=== PATIENT | female | born 1940 | race Caucasian/White ===

== ENCOUNTER 2016-09-16 06:51 | Day surgery (SDC) | payer MEDICARE, BC ==
[2016-09-16] MEDS ORDERED: Propofol 200 MG/20 ML SDV ONE ×2 (07:20→07:21)
[2016-09-16] MEDS ORDERED: fentaNYL 100 MCG/2 ML SDV ONE (07:20)
[2016-09-16] MEDS ORDERED: Lactated Ringers 1,000 ML IV SCH (07:30)
[2016-09-16 09:48] VITALS: BP 153/56
--- NOTE | 2016-09-17 07:34 | OR ---
DATE OF PROCEDURE: 09/16/2016 PREOPERATIVE DIAGNOSIS: History of adenomatous colon polyps. POSTOPERATIVE DIAGNOSES: Diverticulosis, small right colon polyp, and history of adenomatous colon polyps. PROCEDURE PERFORMED: Colonoscopy to the cecum with biopsy resection of small right colon polyp. ANESTHESIA: IV anesthesia with monitored anesthesia care. INDICATION: This 75-year-old white female is referred for a colonoscopy because of a history of adenomatous colon polyps. She says her last colonoscopic exam was done three years ago. I counseled her for the procedure including risks and alternatives, and she gave her informed consent to proceed. DESCRIPTION OF PROCEDURE: The patient was placed in the left lateral decubitus position. IV anesthesia was administered by the Anesthesia Service. Time-out was held. A rectal exam was unremarkable. The flexible video Olympus colonoscope was introduced through her anus, up her rectum, and out her colon all the way to the cecum. En route, we saw multiple left-sided diverticula. There was no bleeding or inflammation associated with them. Once the cecum was reached, the scope was slowly withdrawn examining the mucosa throughout. In the right colon, we saw a small polyp, which was removed with a few bites of the biopsy forceps. The scope was withdrawn further with no other additional new lesions noted. The scope was retroflexed in the rectum with the distal rectum appearing unremarkable. The scope was straightened and removed. She tolerated the procedure well. Fredis Iqbal MD /[id number]
== END 2016-09-16 10:10 | disposition home or self-care (01) ==
LOC: JP.SDS 06:51
PROVIDERS: ATTEND Surgery
DX: Z12.11 Encounter for screening for malignant neoplasm of colon (principal); D12.6 Benign neoplasm of colon, unspecified; I10 Essential (primary) hypertension; K57.30 Diverticulosis of large intestine without perforation or abscess without bleeding; Z88.8 Allergy status to other drugs, medicaments and biological substances
CPT/HCPCS: 45380; 88305; J2704; J3010; J7120

== ENCOUNTER 2017-01-28 22:30 | Emergency (ER) | payer MEDICARE, BC ==
[2017-01-28] MEDS ORDERED: Diphtheria,Pertussis(Acell),Tetanus Vaccine 0.5 ML SDV IM ONE (23:14)
[2017-01-28] MEDS ORDERED: Bacitracin Oint 1 GM U/D Packet TOP ONE (23:16)
--- NOTE | 2017-01-28 23:37 | EDM.PDOC ---
ED HPI GENERAL MEDICAL PROBLEM - General Chief Complaint: Laceration Stated Complaint: FELL HURT JAW Time Seen by Provider: 01/28/17 23:20 Source of Information: Reports: Patient History Limitations: Reports: No Limitations - History of Present Illness INITIAL COMMENTS - FREE TEXT/NARRATIVE: 76 yo female tripped tonight coming out of a concert. Incurred a lower lip laceration. No LOC. May have chipped some teeth. Jaw is a little sore. No nausea or AMIN. Onset: Today Onset Date: 01/28/17 Onset Time: 22:00 Duration: Minutes:, Constant Location: Reports: Face Quality: Reports: Dull Severity: Mild Improves with: Reports: None Worsens with: Reports: None Context: Reports: Other (fall in the dark) Associated Symptoms: Reports: No Other Symptoms. Denies: Headaches, Nausea/ Vomiting Treatments ORDER ENTRY SPECIALIST: Reports: Other (see below) (none) Left Face Pain Score (Numeric/FACES): 4 - Related Data Allergies Allergy/AdvReac Type Severity Reaction Status Date / Time lisinopril AdvReac Cough Verified 01/28/17 23:02 Home Meds: Home Meds Diclofenac Sodium [Voltaren 1% Gel] 1 applic TP QID PRN 08/09/13 [History] HCTZ/Triamterene [Maxzide 25-37.5 MG] 1 tab PO DAILY 08/09/13 [History] [place]-3 Fatty Acids [[place]-3] 1,000 mg PO DAILY 08/09/13 [History] *I-Throid 6.5 mg PO DAILY 01/13/15 [History] *Msm 1 cap PO DAILY 01/13/15 [History] *Neuro Methylation Cream 1 inch TOP DAILY 01/13/15 [History] *Neurolink 2 cap PO DAILY 01/13/15 [History] *Osteovegan 2 cap PO DAILY 01/13/15 [History] *Tergicel Colostrom 1 cap PO DAILY 01/13/15 [History] *Thyrosodine 5 drop PO DAILY 01/13/15 [History] L.acidoph,Paracasei, B.lactis [Probiotic] 1 cap PO DAILY 01/13/15 [History] Losartan [Cozaar] 25 mg PO DAILY 01/13/15 [History] Magnesium Citrate 1 cap PO DAILY 01/13/15 [History] Medium Chain Triglycerides [MCT Oil] 1 tsp PO DAILY 01/13/15 [History] Past Medical History HEENT History: Reports: Allergic Rhinitis Cardiovascular History: Reports: Hypertension 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: Neurological History: Reports: Neuropathy, Peripheral - Past Surgical History HEENT Surgical History: Reports: Cataract Surgery Cardiovascular Surgical History: Reports: None Social & Family History - Family History Family Medical History: Noncontributory - Tobacco Use Smoking Status *Q: Unknown Ever Smoked Second Hand Smoke Exposure: No - Caffeine Use Caffeine Use: Reports: Coffee - Alcohol Use Days Per Week of Alcohol Use: 0 - Recreational Drug Use Recreational Drug Use: No ED ROS GENERAL - Review of Systems Review Of Systems: See Below Constitutional: Reports: No Symptoms HEENT: Reports: Other (Feels like she may have incurred some small chips to some of her teeth. ) Musculoskeletal: Reports: Joint Pain (mild jaw pain ) Skin: Reports: Wound (Lower lip laceration.) Neurological: Reports: No Symptoms Psychiatric: Reports: No Symptoms ED EXAM, SKIN/RASH Exam: See Below Exam Limited By: No Limitations General Appearance: Alert, WD/WN, No Apparent Distress Eye Exam: Bilateral Eye: Normal Inspection, PERRL Ears: Normal External Exam, Normal Canal, Hearing Grossly Normal Nose: Normal Inspection, Normal Mucosa, No Blood Throat/Mouth: Normal Inspection, Other (No significant dental injury noted. There is a 2 cm horiz. lower lip laceration just below the arash border. ) Head: Atraumatic, Normocephalic Neck: Normal Inspection, Supple, Non-Tender Neurological: Alert, Oriented, CN II-XII Intact, Normal Cognition, No Motor/ Sensory Deficits Psychiatric: Normal Affect, Normal Mood Skin: Other (See details above regarding lower lip laceration. ) Location, Skin: Face (lower lip) Characteristics: Linear Associated features: Tenderness Lymphatic: No Adenopathy ED SKIN PROCEDURES - Laceration/Wound Repair Lower Mouth Lac/Wound length In cm: 2 Appearance: Subcutaneous, Clean Distal NVT: Neuro & Vascular Intact, No Tendon Injury Anesthetic Type: Local Local Anesthesia - Lidocaine (Xylocaine): 1% with EPI Local Anesthetic Volume: 3cc Skin Prep: Saline Exploration/Debridement/Repair: Wound Explored Closed with: Sutures Suture Size: other (6-0) Suture Type: Nylon, Simple Drain Placement: No Tetanus Status Addressed: Yes Complications: No Course - Vital Signs Last Recorded V/S: Last Vital Signs Temp 36.4 C 01/28/17 22:58 Pulse 108 H 01/28/17 22:58 Resp 16 01/28/17 22:58 BP 217/125 H 01/28/17 22:58 Pulse Ox 96 01/28/17 22:58 - Orders/Labs/Meds Orders: Active Orders 24 hr Category Date Time Status Vaccines to be Administered [RC] PER UNIT ROUTINE Care 01/28/17 23:15 Active Meds: Medications Discontinued Medications Generic Name Dose Route Start Last Admin Trade Name Sarahy PRN Reason Stop Dose Admin Bacitracin 1 dose 01/28/17 23:16 Bacitracin Oint 1 Gm TOP 01/28/17 23:17 ONETIME ONE Diphtheria/Tetanus/Acell Pertussis 0.5 ml 01/28/17 23:14 Adacel IM 01/28/17 23:15 .ONCE ONE Departure - Departure Time of Disposition: 23:45 Disposition: Home, Self-Care 01 Condition: Good Clinical Impression: Laceration of lower lip Qualifiers: Encounter type: initial encounter Qualified Code(s): S01.511A - Laceration without foreign body of lip, initial encounter - Discharge Information Referrals: Lanre Carroll MD [Primary Care Provider] - Forms: ED Department Discharge - My Orders Last 24 Hours: My Active Orders 01/28/17 23:15 Vaccines to be Administered [RC] PER UNIT ROUTINE - Assessment/Plan Last 24 Hours: My Active Orders 01/28/17 23:15 Vaccines to be Administered [RC] PER UNIT ROUTINE
[2017-01-28 23:52] VITALS: BP 192/89
== END 2017-01-28 23:53 | disposition home or self-care (01) ==
LOC: JP.ED 22:30
DX: S01.511A Laceration without foreign body of lip, initial encounter (principal); I10 Essential (primary) hypertension; Z23 Encounter for immunization; Z98.49 Cataract extraction status, unspecified eye; Z79.899 Other long term (current) drug therapy; Z88.8 Allergy status to other drugs, medicaments and biological substances; W01.0XXA Fall on same level from slipping, tripping and stumbling without subsequent striking against object, initial encounter
CPT/HCPCS: 12011; 90471; 90715; 99283-25

== ENCOUNTER 2021-04-10 15:04 | Inpatient (IN) | payer MEDICARE ==
[2021-04-10] MEDS ORDERED: fentaNYL 100 MCG/2 ML SDV IM ONE (16:05)
--- NOTE | 2021-04-10 16:07 | EDM.PDOC ---
ED HPI GENERAL MEDICAL PROBLEM - General Chief Complaint: Lower Extremity Injury/Pain Stated Complaint: FELL PAIN BELOW LT HIP Time Seen by Provider: 04/10/21 16:03 Source of Information: Reports: Patient, Family, RN Notes Reviewed History Limitations: Reports: No Limitations - History of Present Illness INITIAL COMMENTS - FREE TEXT/NARRATIVE: 80-year-old female presents emergency department today with complaint of left hip pain, she injured herself earlier today when she slipped outside of her apartment landed predominantly on the left hip. Now she has difficulty bearing weight any movement of that hip causes severe pain Left Hip Pain Score (Numeric/FACES): 7 - Related Data Allergies Allergy/AdvReac Type Severity Reaction Status Date / Time lisinopril AdvReac Cough Verified 04/10/21 15:43 Home Meds: Home Meds [place]-3 Fatty Acids [[place]-3] 1,000 mg PO DAILY 08/09/13 [History] *I-Throid 6.5 mg PO DAILY 01/13/15 [History] *Neuro Methylation Cream 1 inch TOP DAILY 01/13/15 [History] L.acidoph,Paracasei, B.lactis [Probiotic] 1 cap PO DAILY 01/13/15 [History] Magnesium Citrate 1 cap PO DAILY 01/13/15 [History] Medium Chain Triglycerides [MCT Oil] 1 tsp PO DAILY 01/13/15 [History] Ibuprofen 200 mg PO Q6H PRN 04/10/21 [History] Ubidecarenone [Coq10] 100 mg PO 1800 04/10/21 [History] Past Medical History HEENT History: Reports: Allergic Rhinitis Cardiovascular History: Reports: Hypertension Gastrointestinal History: Reports: 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: Musculoskeletal History: Reports: Osteoarthritis Neurological History: Reports: Neuropathy, Peripheral - Past Surgical History Head Surgeries/Procedures: Reports: None HEENT Surgical History: Reports: Cataract Surgery Cardiovascular Surgical History: Reports: None GI Surgical History: Reports: Cholecystectomy, Colonoscopy Neurological Surgical History: Reports: None Musculoskeletal Surgical History: Reports: None Social & Family History - Family History Family Medical History: No Pertinent Family History - Tobacco Use Tobacco Use Status *Q: Never Tobacco User - Caffeine Use Caffeine Use: Reports: Coffee, Soda, Tea - Recreational Drug Use Recreational Drug Use: No Review of Systems - Review of Systems Review Of Systems: See Below Constitutional: Reports: No Symptoms Musculoskeletal: Reports: Joint Pain (Hip pain) ED EXAM, GENERAL - Physical Exam Exam: See Below Free Text/Narrative:: Examination left hip it is externally rotated and shortened will not tolerate any type of exam there is tenderness to palpation over the greater trochanter Exam Limited By: No Limitations General Appearance: Alert, WD/WN, No Apparent Distress Respiratory/Chest: No Respiratory Distress Course - Vital Signs Last Recorded V/S: Last Vital Signs Temp 97.0 F 04/10/21 15:38 Pulse 97 04/10/21 18:21 Resp 18 04/10/21 15:38 BP 198/95 H 04/10/21 18:21 Pulse Ox 94 L 04/10/21 18:21 - Orders/Labs/Meds Orders: Active Orders 24 hr Category Date Time Status Insert Urinary Catheter [OM.PC] Q24H Care 04/10/21 17:45 Ordered Urinary Catheter Assessment [RC] ASDIRECTED Care 04/10/21 17:39 Active COVID-19/FLU A+B/RSV [MOLEC] Routine Lab 04/10/21 17:58 Received Potassium Chloride [KCL in Water 20 MEQ/100 ML] 20 meq Med 04/10/21 18:20 Active Premix Bag 1 bag IV ONETIME ceFAZolin [Ancef] 1 gm Med 04/11/21 07:30 Active Premix Bag 1 bag IV ONETIME Medication Orders Cefazolin Sodium/Dextrose 1 gm (/ Premix) 50 mls @ 100 mls/hr IV ONETIME ONE Stop: 04/11/21 07:59 Potassium Chloride 20 meq/ (Premix) 100 mls @ 50 mls/hr IV ONETIME ONE Stop: 04/10/21 20:19 Labs: Laboratory Tests 04/10/21 04/10/21 Range/Units 17:55 17:55 WBC 24.1 H (4.5-11.0) K/uL RBC 4.91 (3.30-5.50) M/uL Hgb 15.6 H D (12.0-15.0) g/dL Hct 44.3 (36.0-48.0) % MCV 90 (80-98) fL MCH 32 H (27-31) pg MCHC 35 (32-36) % Plt Count 298 (150-400) K/uL Sodium 131 L (140-148) mmol/L Potassium 2.9 L* (3.6-5.2) mmol/L Chloride 94 L (100-108) mmol/L Carbon Dioxide 27 (21-32) mmol/L Anion Gap 12.9 (5.0-14.0) mmol/L BUN 19 H (7-18) mg/dL Creatinine 0.9 (0.6-1.0) mg/dL Est Cr Clr Drug Dosing 50.29 mL/min Estimated GFR (MDRD) > 60 (>60) Glucose 107 H (74-106) mg/dL Calcium 9.5 (8.5-10.1) mg/dL Total Bilirubin 0.8 (0.2-1.0) mg/dL AST 27 (15-37) U/L ALT 27 (12-78) U/L Alkaline Phosphatase 71 (46-116) U/L Total Protein 8.2 (6.4-8.2) g/dL Albumin 3.7 (3.4-5.0) g/dL Globulin 4.5 H (2.3-3.5) g/dL Albumin/Globulin Ratio 0.8 L (1.2-2.2) Meds: Medications Generic Name Dose Route Start Last Admin Trade Name Freq PRN Reason Stop Dose Admin Cefazolin Sodium/Dextrose 1 gm 50 mls @ 100 mls/hr 04/11/21 07:30 / Premix IV 04/11/21 07:59 ONETIME ONE Potassium Chloride 20 meq/ 100 mls @ 50 mls/hr 04/10/21 18:20 Premix IV 04/10/21 20:19 ONETIME ONE Discontinued Medications Generic Name Dose Route Start Last Admin Trade Name Freq PRN Reason Stop Dose Admin Fentanyl 50 mcg 04/10/21 16:05 04/10/21 16:12 Fentanyl 100 Mcg/2 Ml Sdv IM 04/10/21 16:06 50 mcg ONETIME ONE Administration Fentanyl 50 mcg 04/10/21 17:38 04/10/21 17:54 Fentanyl 100 Mcg/2 Ml Sdv IVPUSH 04/10/21 17:39 50 mcg ONETIME ONE Administration Potassium Chloride 40 meq 04/10/21 18:20 04/10/21 18:30 Potassium Chloride 20 Meq Tab.Er PO 04/10/21 18:21 40 meq ONETIME ONE Administration Departure - Departure Time of Disposition: 18:34 Disposition: Admitted As Inpatient 66 Condition: Fair Clinical Impression: Intertrochanteric fracture of left hip Qualifiers: Encounter type: initial encounter Fracture type: closed Fracture alignment: displaced Qualified Code(s): S72.142A - Displaced intertrochanteric fracture of left femur, initial encounter for closed fracture - Discharge Information Referrals: Lanre Carroll MD [Primary Care Provider] - Forms: ED Department Discharge Sepsis Event Note (ED) - Evaluation Sepsis Screening Result: No Definite Risk - Focused Exam Vital Signs: Vital Signs Temp Pulse Resp BP Pulse Ox 04/10/21 18:21 97 198/95 H 94 L 04/10/21 17:43 85 199/94 H 99 04/10/21 16:34 89 199/88 H 94 L 04/10/21 15:38 97.0 F 88 18 199/90 H 96 - My Orders Last 24 Hours: My Active Orders 04/10/21 17:39 Urinary Catheter Assessment [RC] ASDIRECTED 04/10/21 17:45 Insert Urinary Catheter [OM.PC] Q24H 04/10/21 17:58 COVID-19/FLU A+B/RSV [MOLEC] Routine 04/10/21 18:20 Potassium Chloride [KCL in Water 20 MEQ/100 ML] 20 meq Premix Bag 1 bag IV ONETIME - Assessment/Plan Last 24 Hours: My Active Orders 04/10/21 17:39 Urinary Catheter Assessment [RC] ASDIRECTED 04/10/21 17:45 Insert Urinary Catheter [OM.PC] Q24H 04/10/21 17:58 COVID-19/FLU A+B/RSV [MOLEC] Routine 04/10/21 18:20 Potassium Chloride [KCL in Water 20 MEQ/100 ML] 20 meq Premix Bag 1 bag IV ONETIME Plan: Assessment Acuity = acute Site and laterality = left hip intertrochanteric fracture Etiology = secondary to fall Manifestations = none Location of injury = Home Lab values = x-ray describes fracture above Plan Call discussed case with Dr. Barone orthopedic surgeon at 1700 kindly agreed to evaluate the patient in hospital plan for surgical intervention This note was dictated using [employer] voice recognition software please call with any questions on syntax or grammar.
--- NOTE | 2021-04-10 17:00 | CRLCR ---
For Patients: As a result of the Century Cures Act, medical imaging exams and procedure reports are released immediately into your electronic medical record. You may view this report before your referring provider. If you have questions, please contact your health care provider. Indication: Fall, pain Technique: Left hip 2 views Comparison: None Findings: Bones: Mildly displaced and probably comminuted fracture of the left femoral intertrochanteric region. Femoral head remains seated in the acetabulum. Joint spaces: Joint spaces are preserved. No degenerative changes. Soft tissues: Unremarkable. Impression: Left intertrochanteric fracture. Dictated by Norbert Garibay MD @ 04/10/2021 4:59:36 PM (Electronically Signed)
[2021-04-10] MEDS ORDERED: fentaNYL 100 MCG/2 ML SDV IVPUSH ONE (17:38)
[2021-04-10] MEDS ORDERED: Potassium Chloride 20 MEQ Tab.ER PO ONE (18:20)
[2021-04-10] MEDS ORDERED: Potassium Chloride 20 MEQ in Premix Bag 1 BAG IV ONE (18:20)
[2021-04-10] MEDS ORDERED: HYDROmorphone 1 MG/ML Syringe IVPUSH ONE (18:35)
[2021-04-10 18:40] LABS: CORONAVIRUS COVID-19 NAA NEGATIVE (NEGATIVE)
[2021-04-10] MEDS ORDERED: Ondansetron 4 MG/2 ML SDV ONE (19:08)
[2021-04-10] MEDS ORDERED: Ondansetron 4 MG/2 ML SDV IVPUSH PRN (19:08)
--- NOTE | 2021-04-10 19:15 | PCM.HP.2 ---
H&P History of Present Illness - General Date of Service: 04/10/21 Admit Problem/Dx: Admission Diagnosis/Problem Admission Diagnosis/Problem Hip fracture requiring operative repair Source of Information: Patient, Family, Provider, RN History Limitations: Reports: No Limitations - History of Present Illness Initial Comments - Free Text/Narative: chief complaint: fracture left hip This is a 80 year old female presents to the ER via POV after a fall at [facility]. She went home and then fell again at home. Drove herself to the hospital. She was evaluated and found to have a fracture left hip and low potassium. Orthopedic were consulted- Dr. Barone will do surgery tomorrow. Onset of Symptoms: Reports: Today Symptom Onset Date: 04/10/21 Symptom Onset Time: 13:30 Duration of Symptoms: Reports: Constant Location: Reports: Lower Extremity, Left Quality: Reports: Ache, Sharp Severity: Severe Improves with: Reports: Immobilization Worsens with: Reports: Movement Context: Reports: Other (fall at [facility]) Associated Symptoms: Reports: No Other Symptoms Left Hip Pain Score (Numeric/FACES): 7 - Related Data Allergies/Adverse Reactions: Allergies Allergy/AdvReac Type Severity Reaction Status Date / Time lisinopril AdvReac Cough Verified 04/10/21 15:43 Home Medications: Home Meds Weatherford-3 Fatty Acids [Weatherford-3] 1,000 mg PO DAILY 08/09/13 [History] *I-Throid 6.5 mg PO DAILY 01/13/15 [History] *Neuro Methylation Cream 1 inch TOP DAILY 01/13/15 [History] L.acidoph,Paracasei, B.lactis [Probiotic] 1 cap PO DAILY 01/13/15 [History] Magnesium Citrate 1 cap PO DAILY 01/13/15 [History] Medium Chain Triglycerides [MCT Oil] 1 tsp PO DAILY 01/13/15 [History] Ibuprofen 200 mg PO Q6H PRN 04/10/21 [History] Ubidecarenone [Coq10] 100 mg PO 1800 04/10/21 [History] Past Medical History HEENT History: Reports: Allergic Rhinitis Cardiovascular History: Reports: Hypertension Gastrointestinal History: Reports: Colon [employer] MAIL History: Reports: Musculoskeletal History: Reports: Osteoarthritis Neurological History: Reports: Neuropathy, Peripheral - Past Surgical History Head Surgeries/Procedures: Reports: None HEENT Surgical History: Reports: Cataract Surgery Cardiovascular Surgical History: Reports: None GI Surgical History: Reports: Cholecystectomy, Colonoscopy Neurological Surgical History: Reports: None Musculoskeletal Surgical History: Reports: None Social & Family History - Family History Family Medical History: No Pertinent Family History - Tobacco Use Tobacco Use Status *Q: Never Tobacco User - Caffeine Use Caffeine Use: Reports: Coffee, Soda, Tea - Recreational Drug Use Recreational Drug Use: No - Living Situation & Occupation Living situation: Reports: with Spouse, 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 Has a Son who lives here and Daughter lives in [place].) Occupation: Retired H&P Review of Systems - Review of Systems: Review Of Systems: See Below General: Reports: Other (left hip and left upper leg pain) HEENT: Reports: Glasses Pulmonary: Reports: No Symptoms Cardiovascular: Reports: No Symptoms Gastrointestinal: Reports: No Symptoms Genitourinary: Reports: No Symptoms Musculoskeletal: Reports: Leg Pain (left), Joint Pain (left hip fractured) Skin: Reports: No Symptoms Psychiatric: Reports: No Symptoms Neurological: Reports: No Symptoms Hematologic/Lymphatic: Reports: No Symptoms Immunologic: Reports: No Symptoms Exam - Exam Exam: See Below - Vital Signs Vital Signs: Last Vital Signs Temp 97.0 F 04/10/21 15:38 Pulse 97 04/10/21 18:21 Resp 18 04/10/21 15:38 BP 198/95 H 04/10/21 18:21 Pulse Ox 94 L 04/10/21 18:21 Weight: 175 lb - Exam Quality Assessment: Urinary Catheter General: Alert, Oriented, Cooperative, Moderate Distress HEENT: PERRLA, Conjunctiva Clear, Hearing Intact Neck: Supple, Trachea Midline Lungs: Clear to Auscultation, Normal Respiratory Effort Cardiovascular: Regular Rate, Regular Rhythm, Normal S1, Normal S2 GI/Abdominal Exam: Normal Bowel Sounds, Soft, Non-Tender (Female) Exam: Deferred Rectal (Female) Exam: Deferred Extremities: Normal Inspection, No Pedal Edema, Leg Pain (left), Limited Range of Motion (unable left leg due to pain) Skin: Warm, Dry, Intact Neurological: Normal Speech, Normal Tone, Abnormal Gait (due to left hip fracture) Neuro Extensive - Mental Status: Alert, Oriented x3, Normal Mood/Affect, Normal Cognition, Memory Intact Neuro Extensive - Motor, Sensory, Reflexes: Other (left hip fracture) Psychiatric: Alert, Normal Affect, Anxious - Patient Data Lab Results Last 24 hrs: Laboratory Results - last 24 hr 04/10/21 04/10/21 04/10/21 Range/Units 17:55 17:55 17:58 WBC 24.1 H (4.5-11.0) K/uL RBC 4.91 (3.30-5.50) M/uL Hgb 15.6 H D (12.0-15.0) g/dL Hct 44.3 (36.0-48.0) % MCV 90 (80-98) fL MCH 32 H (27-31) pg MCHC 35 (32-36) % Plt Count 298 (150-400) K/uL Sodium 131 L (140-148) mmol/L Potassium 2.9 L* (3.6-5.2) mmol/L Chloride 94 L (100-108) mmol/L Carbon Dioxide 27 (21-32) mmol/L Anion Gap 12.9 (5.0-14.0) mmol/L BUN 19 H (7-18) mg/dL Creatinine 0.9 (0.6-1.0) mg/dL Est Cr Clr Drug Dosing 50.29 mL/min Estimated GFR (MDRD) > 60 (>60) Glucose 107 H (74-106) mg/dL Calcium 9.5 (8.5-10.1) mg/dL Total Bilirubin 0.8 (0.2-1.0) mg/dL AST 27 (15-37) U/L ALT 27 (12-78) U/L Alkaline Phosphatase 71 (46-116) U/L Total Protein 8.2 (6.4-8.2) g/dL Albumin 3.7 (3.4-5.0) g/dL Globulin 4.5 H (2.3-3.5) g/dL Albumin/Globulin Ratio 0.8 L (1.2-2.2) Influenza Type A RNA Negative (NEGATIVE) RSV RNA (INAAT) Negative (NEGATIVE) Influenza Type B RNA Negative (NEGATIVE) SARS-CoV-2 RNA (LINNEA) Negative (NEGATIVE) Result Diagrams: 04/10/21 17:55 04/10/21 17:55 Sepsis Event Note - Evaluation Sepsis Screening Result: No Definite Risk - Focused Exam Vital Signs: Vital Signs Temp Pulse Resp BP Pulse Ox 04/10/21 18:21 97 198/95 H 94 L 04/10/21 17:43 85 199/94 H 99 04/10/21 16:34 89 199/88 H 94 L 04/10/21 15:38 97.0 F 88 18 199/90 H 96 - Problem List (1) Intertrochanteric fracture of left hip SNOMED Code(s): 916825798, [id number] ICD Code: S72.142A - DISPLACED INTERTROCHANTERIC FRACTURE OF LEFT FEMUR, INIT Status: Acute Priority: High Current Visit: Yes Qualifiers: Encounter type: initial encounter Fracture type: closed Fracture alignment: displaced Qualified Code(s): S72.142A - Displaced intertrochanteric fracture of left femur, initial encounter for closed fracture (2) Hypokalemia SNOMED Code(s): 28822626 ICD Code: E87.6 - HYPOKALEMIA Status: Acute Priority: High Current Visit: Yes Problem List Initiated/Reviewed/Updated: Yes Orders Last 24hrs: Active Orders 24 hr Category Date Time Status Patient Status Manage Transfer [TRANSFER] Routine ADT 04/10/21 18:39 Active Insert Urinary Catheter [OM.PC] Q24H Care 04/10/21 17:45 Ordered Urinary Catheter Assessment [RC] ASDIRECTED Care 04/10/21 17:39 Active UA W/MICROSCOPIC [URIN] Urgent Lab 04/10/21 18:35 Ordered Ondansetron [Zofran] Med 04/10/21 19:08 Active 4 mg IVPUSH Q4H PRN Potassium Chloride [KCL in Water 20 MEQ/100 ML] 20 meq Med 04/10/21 18:20 Active Premix Bag 1 bag IV ONETIME ceFAZolin [Ancef] 1 gm Med 04/11/21 07:30 Active Premix Bag 1 bag IV ONETIME Resuscitation Status Routine Resus Stat 04/10/21 18:40 Ordered Medication Orders Cefazolin Sodium/Dextrose 1 gm (/ Premix) 50 mls @ 100 mls/hr IV ONETIME ONE Stop: 04/11/21 07:59 Potassium Chloride 20 meq/ (Premix) 100 mls @ 50 mls/hr IV ONETIME ONE Stop: 04/10/21 20:19 Last Admin: 04/10/21 18:54 Dose: 50 mls/hr Documented by: [id number] Ondansetron HCl (Ondansetron 4 Mg/2 Ml Sdv) 4 mg IVPUSH Q4H PRN PRN Reason: Nausea/Vomiting Assessment/Plan Comment:: Assessment/Plan Comment:: ASSESSMENT AND PLAN - Intertrochanteric fracture left hip, Hypokalemia This is a 80 year old female presents to the ER via POV after a fall at [facility]. She went home and then fell again at home. Drove herself to the hospital. She was evaluated and found to have a fracture left hip and low potassium. Orthopedic were consulted- Dr. Barone will do surgery tomorrow. ER labs : CBC wbc 24.1, hgb 15.9, plts 298 Na+ 131, K+2.9, BUN 19, Cr. 0.9, GFR >60 ER xray: left intertrochanteric fracture of left hip Consult with Dr. Barone, Orthopedic Surgeon - will do surgery tomorrow Intertrochanteric fracture of left hip -IV fluids Normal Saline at 100 ml/hr overnight for rehydration -NPO after midnight -Position of comfort -Morrissey catheter for strict intake and output monitoring. -Dilaudid KEYLINER for pain control -consult to PT and OT -am labs CBC, BMP -Son Steven would like to be called with Surgery time or any changes. He will be staying with his Dad idania at [facility]. [phone] Hypokalemia- IV Potassium 20 meq. and PO Potassium 40 meq. given in ER -am BMP -telemetry Maintenance issues - - DVT prophylaxis -SCD - GI prophylaxis -Protonix 40 mg daily - Nutrition -NPO after midnight- regular diet until midnight - Morrissey catheter -placed for strict intake and output monitoring CODE STATUS -FULL for surgery then would like to be DNR/DNI Admission justification -this patient will be admitted for inpatient services and is medically appropriate meeting medical necessity for inpatient admission as outlined in my documentation. I reasonably expect the patient will require inpatient services that span a period time over 2 midnights. I reasonably expect this patient to be discharged or transferred within 96 hours [facility]. Disposition -I would anticipate discharge to [facility] with - they both live there. Primary care physician - Dr. Carroll Hospitalist- Marcus Trujillo M.D. - Mortality Measure Prognosis:: Good
[2021-04-10] MEDS ORDERED: Albuterol 0.083% 2.5 MG/3 ML Neb Soln NEB PRN (20:32)
[2021-04-10] MEDS ORDERED: Naloxone 0.4 MG/ML SDV IVPUSH PRN (20:32)
[2021-04-10] MEDS ORDERED: Bisacodyl 5 MG Tab PO PRN (20:32)
[2021-04-10] MEDS ORDERED: HYDROmorphone/Normal Saline 15 MG/30 ML PCA IV PRN (20:32)
[2021-04-10] MEDS ORDERED: Docusate Sodium 100 MG Cap PO PRN (20:32)
[2021-04-10] MEDS ORDERED: Ondansetron 4 MG/2 ML SDV IV PRN (20:32)
[2021-04-10] MEDS ORDERED: LORazepam 2 MG/ML SDV IV PRN (20:32)
[2021-04-10] MEDS ORDERED: oxyCODONE 5 MG Tab PO PRN (20:32)
[2021-04-10] MEDS ORDERED: Ondansetron 4 MG Tab.DIS PO PRN (20:32)
[2021-04-10] MEDS ORDERED: Acetaminophen 325 MG Tab PO PRN (20:32)
[2021-04-10] MEDS: Sodium Chloride 0.9% 1,000 ML IV SCH (21:11)
[2021-04-11] MEDS: Sodium Chloride 0.9% 1,000 ML IV SCH ×3 (07:00→19:12)
[2021-04-11] MEDS ORDERED: ceFAZolin 1 GM in Premix Bag 1 BAG IV ONE (07:30)
[2021-04-11] MEDS ORDERED: Bupivacaine 0.5%/EPINEPHrine 1:200,000 50 ML MDV ONE (07:33)
[2021-04-11] MEDS ORDERED: fentaNYL 250 MCG/5 ML SDV ONE (07:35)
[2021-04-11] MEDS ORDERED: Propofol 200 MG/20 ML SDV ONE (07:36)
[2021-04-11] MEDS ORDERED: Rocuronium 50 MG/5 ML Vial ONE (07:36)
[2021-04-11] MEDS ORDERED: Neostigmine Methylsulfate 1 MG/ML 5 ML Syringe ONE (07:36)
[2021-04-11] MEDS ORDERED: Glycopyrrolate 0.2 MG/ML 5 ML MDV ONE (07:36)
[2021-04-11] MEDS ORDERED: Succinylcholine 200 MG/10 ML MDV ONE (07:36)
[2021-04-11] MEDS ORDERED: Ondansetron 4 MG/2 ML SDV ONE (07:36)
[2021-04-11] MEDS ORDERED: Dexamethasone 4 MG/ML SDV ONE (07:36)
[2021-04-11] MEDS ORDERED: Bupivacaine 0.5%/EPINEPHrine 1:200,000 30 ML SDV INJECT ONE ×2 (09:01→09:14)
[2021-04-11] MEDS ORDERED: Sugammadex Sodium 200 MG/2 ML VIAL ONE (09:17)
[2021-04-11] MEDS ORDERED: Ondansetron 4 MG Tab.DIS PO PRN (09:24)
[2021-04-11] MEDS ORDERED: Morphine 2 MG/ML SYRINGE IV PRN (09:24)
[2021-04-11] MEDS: Acetaminophen 325 MG Tab PO SCH ×3 (11:50→23:39)
--- NOTE | 2021-04-11 11:55 | PCM.PN ---
- General Info Date of Service: 04/11/21 Subjective Update: No acute events overnight. Patient had an uneventful surgical repair of her left hip fracture this morning with an IM nailing. She is complaining of moderate lef t hip pain postoperatively. Vital signs are otherwise stable with the exception of her blood pressure which was quite elevated this morning though improving after surgery. She reports her blood pressure is normally well controlled and she has not been on medications recently but did require them in the distant past. Urine sample moderately suggestive of infection. Patient does not have any symptoms of urinary tract infection. Functional Status: Reports: Pain Controlled - Review of Systems General: Denies: Fever Musculoskeletal: Reports: Leg Pain - Patient Data Vitals - Most Recent: Last Vital Signs Temp 36.6 C 04/11/21 10:34 Pulse 88 04/11/21 10:34 Resp 18 04/11/21 10:34 BP 173/73 H 04/11/21 10:34 Pulse Ox 92 L 04/11/21 10:34 Weight - Most Recent: 85.1 kg I&O - Last 24 Hours: Intake & Output 04/10/21 04/11/21 04/11/21 22:59 06:59 14:59 Intake Total 100 Output Total 1250 Balance -1250 100 Lab Results Last 24 Hours: Laboratory Results - last 24 hr 04/10/21 04/10/21 04/10/21 Range/Units 17:55 17:55 17:58 WBC 24.1 H (4.5-11.0) K/uL RBC 4.91 (3.30-5.50) M/uL Hgb 15.6 H D (12.0-15.0) g/dL Hct 44.3 (36.0-48.0) % MCV 90 (80-98) fL MCH 32 H (27-31) pg MCHC 35 (32-36) % Plt Count 298 (150-400) K/uL Neut % (Auto) (36-66) % Lymph % (Auto) (24-44) % [place] % (Auto) (2-6) % Eos % (Auto) (2-4) % Baso % (Auto) (0-1) % Sodium 131 L (140-148) mmol/L Potassium 2.9 L* (3.6-5.2) mmol/L Chloride 94 L (100-108) mmol/L Carbon Dioxide 27 (21-32) mmol/L Anion Gap 12.9 (5.0-14.0) mmol/L BUN 19 H (7-18) mg/dL Creatinine 0.9 (0.6-1.0) mg/dL Est Cr Clr Drug Dosing 50.29 mL/min Estimated GFR (MDRD) > 60 (>60) Glucose 107 H (74-106) mg/dL Calcium 9.5 (8.5-10.1) mg/dL Total Bilirubin 0.8 (0.2-1.0) mg/dL AST 27 (15-37) U/L ALT 27 (12-78) U/L Alkaline Phosphatase 71 (46-116) U/L Total Protein 8.2 (6.4-8.2) g/dL Albumin 3.7 (3.4-5.0) g/dL Globulin 4.5 H (2.3-3.5) g/dL Albumin/Globulin Ratio 0.8 L (1.2-2.2) Urine Color (YELLOW) Urine Appearance (CLEAR) Urine pH (5.0-8.0) Ur Specific [place] (1.008-1.030) Urine Protein (NEGATIVE) mg/dL Urine Glucose (UA) (NEGATIVE) mg/dL Urine Ketones (NEGATIVE) mg/dL Urine Occult Blood (NEGATIVE) Urine Nitrite (NEGATIVE) Urine Bilirubin (NEGATIVE) Urine Urobilinogen (0.2-1.0) EU/dL Ur Leukocyte Esterase (NEGATIVE) Urine RBC (0-5) Urine WBC (0-5) Ur Epithelial Cells Amorphous Sediment Urine Bacteria Urine Mucus Influenza Type A RNA Negative (NEGATIVE) RSV RNA (INAAT) Negative (NEGATIVE) Influenza Type B RNA Negative (NEGATIVE) SARS-CoV-2 RNA (LINNEA) Negative (NEGATIVE) 04/10/21 04/11/21 04/11/21 Range/Units 22:42 04:55 04:55 WBC 16.1 H (4.5-11.0) K/uL RBC 4.61 (3.30-5.50) M/uL Hgb 14.7 (12.0-15.0) g/dL Hct 41.7 (36.0-48.0) % MCV 91 (80-98) fL MCH 32 H (27-31) pg MCHC 35 (32-36) % Plt Count 298 (150-400) K/uL Neut % (Auto) 82.4 H (36-66) % Lymph % (Auto) 10.1 L (24-44) % [place] % (Auto) 7.3 H (2-6) % Eos % (Auto) 0.1 L (2-4) % Baso % (Auto) 0.1 (0-1) % Sodium 131 L (140-148) mmol/L Potassium 3.5 L (3.6-5.2) mmol/L Chloride 97 L (100-108) mmol/L Carbon Dioxide 27 (21-32) mmol/L Anion Gap 10.5 (5.0-14.0) mmol/L BUN 18 (7-18) mg/dL Creatinine 0.7 (0.6-1.0) mg/dL Est Cr Clr Drug Dosing 64.66 mL/min Estimated GFR (MDRD) > 60 (>60) Glucose 126 H (74-106) mg/dL Calcium 8.7 (8.5-10.1) mg/dL Total Bilirubin (0.2-1.0) mg/dL AST (15-37) U/L ALT (12-78) U/L Alkaline Phosphatase (46-116) U/L Total Protein (6.4-8.2) g/dL Albumin (3.4-5.0) g/dL Globulin (2.3-3.5) g/dL Albumin/Globulin Ratio (1.2-2.2) Urine Color Yellow (YELLOW) Urine Appearance Slightly cloudy A (CLEAR) Urine pH 7.5 (5.0-8.0) Ur Specific [place] >= 1.030 (1.008-1.030) Urine Protein >=300 H (NEGATIVE) mg/dL Urine Glucose (UA) Negative (NEGATIVE) mg/dL Urine Ketones 15 H (NEGATIVE) mg/dL Urine Occult Blood Small H (NEGATIVE) Urine Nitrite Negative (NEGATIVE) Urine Bilirubin Negative (NEGATIVE) Urine Urobilinogen 0.2 (0.2-1.0) EU/dL Ur Leukocyte Esterase Negative (NEGATIVE) Urine RBC 5-10 H (0-5) Urine WBC 5-10 H (0-5) Ur Epithelial Cells Rare Amorphous Sediment Not seen Urine Bacteria Many Urine Mucus Not seen Influenza Type A RNA (NEGATIVE) RSV RNA (INAAT) (NEGATIVE) Influenza Type B RNA (NEGATIVE) SARS-CoV-2 RNA (LINNEA) (NEGATIVE) Med Orders - Current: Current Medications Acetaminophen (Acetaminophen 325 Mg Tab) 650 mg PO Q6H [facility] Albuterol (Albuterol 0.083% 2.5 Mg/3 Ml Neb Soln) 2.5 mg NEB Q4H PRN PRN Reason: Shortness Of Breath/wheezing Bandage/Support Products (Nozin Nasal Salt Refiner) 1 applic NASBOTH BID [facility] Stop: 04/18/21 21:01 Bisacodyl (Bisacodyl 5 Mg Tab) 5 mg PO DAILY PRN PRN Reason: Constipation Docusate Sodium (Docusate Sodium 100 Mg Cap) 100 mg PO BID [facility] Enoxaparin Sodium (Enoxaparin 30 Mg/0.3 Ml Syringe) 30 mg SUBCUT DAILY [facility] Hydromorphone HCl (Hydromorphone/Normal Saline 15 Mg/30 Ml Diamond Cleaner) 0 mg IV ASDIRECTED PRN; Protocol PRN Reason: Pain Last Admin: 04/10/21 21:16 Dose: 15 mg Documented by: Sodium Chloride (Normal Saline) 1,000 mls @ 125 mls/hr IV ASDIRECTED [facility] Last Admin: 04/11/21 11:19 Dose: 125 mls/hr Documented by: Cefazolin Sodium/Dextrose 1 gm (/ Premix) 50 mls @ 100 mls/hr IV Q8H [facility] Stop: 04/11/21 23:29 Lorazepam (Lorazepam 2 Mg/Ml Sdv) 1 mg IV Q6H PRN PRN Reason: Nausea/Vomiting Magnesium Hydroxide (Magnesium Hydroxide 400 Mg/5 Ml Susp 30 Ml Cup) 30 ml PO Q6H PRN PRN Reason: Stool Softener Magnesium Oxide (Magnesium Oxide 400 Mg Tab) 400 mg PO DAILY [facility] Morphine Sulfate (Morphine 2 Mg/Ml Syringe) 1 mg IV Q1H PRN PRN Reason: Breakthrough Pain Naloxone HCl (Naloxone 0.4 Mg/Ml Sdv) 0.4 mg IVPUSH Q2M PRN PRN Reason: Respiratory Distress Non-Formulary Medication (*I-Throid) 6.5 mg PO DAILY [facility] Ondansetron HCl (Ondansetron 4 Mg/2 Ml Sdv) 4 mg IVPUSH Q4H PRN PRN Reason: Nausea/Vomiting Last Admin: 04/10/21 19:12 Dose: 4 mg Documented by: Ondansetron HCl (Ondansetron 4 Mg Tab.Dis) 4 mg PO Q6H PRN PRN Reason: Nausea able to take PO Oxycodone HCl (Oxycodone 5 Mg Tab) 5 mg PO Q4H PRN PRN Reason: Pain (moderate 4-6) Last Admin: 04/11/21 07:23 Dose: 5 mg Documented by: Tramadol HCl (Tramadol 50 Mg Tab) 50 mg PO Q6H PRN PRN Reason: Pain (mild 1-3) Discontinued Medications Acetaminophen (Acetaminophen 325 Mg Tab) 650 mg PO Q4H PRN PRN Reason: Pain (Mild 1-3)/fever Last Admin: 04/11/21 06:28 Dose: 650 mg Documented by: Bupivacaine HCl/Epinephrine Bitart (Bupivacaine 0.5%/Epinephrine 1:200,000 50 Ml Mdv) Confirm Administered Dose 50 ml .ROUTE .STK-MED ONE Stop: 04/11/21 07:34 Bupivacaine HCl/Epinephrine Bitart (Bupivacaine 0.5%/Epinephrine 1:200,000 30 Ml Sdv) 30 ml INJECT .STK-MED ONE Stop: 04/11/21 09:15 Last Admin: 04/11/21 09:14 Dose: 30 ml Documented by: Dexamethasone (Dexamethasone 4 Mg/Ml Sdv) Confirm Administered Dose 4 mg .ROUTE .STK-MED ONE Stop: 04/11/21 07:37 Docusate Sodium (Docusate Sodium 100 Mg Cap) 100 mg PO BID PRN PRN Reason: Constipation Fentanyl (Fentanyl 100 Mcg/2 Ml Sdv) 50 mcg IM ONETIME ONE Stop: 04/10/21 16:06 Last Admin: 04/10/21 16:12 Dose: 50 mcg Documented by: Fentanyl (Fentanyl 100 Mcg/2 Ml Sdv) 50 mcg IVPUSH ONETIME ONE Stop: 04/10/21 17:39 Last Admin: 04/10/21 17:54 Dose: 50 mcg Documented by: Fentanyl (Fentanyl 250 Mcg/5 Ml Sdv) Confirm Administered Dose 250 mcg .ROUTE .STK-MED ONE Stop: 04/11/21 07:36 Glycopyrrolate (Glycopyrrolate 0.2 Mg/Ml 5 Ml Mdv) Confirm Administered Dose 1 mg .ROUTE .STK-MED ONE Stop: 04/11/21 07:37 Hydromorphone HCl (Hydromorphone 1 Mg/Ml Syringe) 1 mg IVPUSH ONETIME ONE Stop: 04/10/21 18:36 Last Admin: 04/10/21 18:52 Dose: 1 mg Documented by: Cefazolin Sodium/Dextrose 1 gm (/ Premix) 50 mls @ 100 mls/hr IV ONETIME ONE Stop: 04/11/21 07:59 Last Admin: 04/11/21 07:58 Dose: 100 mls/hr Documented by: Potassium Chloride 20 meq/ (Premix) 100 mls @ 50 mls/hr IV ONETIME ONE Stop: 04/10/21 20:19 Last Admin: 04/10/21 18:54 Dose: 50 mls/hr Documented by: Sodium Chloride (Normal Saline) 1,000 mls @ 100 mls/hr IV ASDIRECTED [facility] Last Admin: 04/11/21 07:00 Dose: 100 mls/hr Documented by: Lidocaine HCl (Lidocaine 1% 5 Ml Sdv) 5 ml INJECT ONETIME ONE Stop: 04/10/21 18:36 Last Admin: 04/10/21 18:55 Dose: 5 ml Documented by: Neostigmine Methylsulfate (Neostigmine Methylsulfate 1 Mg/Ml 5 Ml Syringe) Confirm Administered Dose 5 mg .ROUTE .STK-MED ONE Stop: 04/11/21 07:37 Ondansetron HCl (Ondansetron 4 Mg/2 Ml Sdv) Confirm Administered Dose 4 mg .ROUTE .STK-MED ONE Stop: 04/10/21 19:09 Last Admin: 04/11/21 01:15 Dose: Not Given Documented by: Ondansetron HCl (Ondansetron 4 Mg/2 Ml Sdv) Confirm Administered Dose 4 mg .ROUTE .STK-MED ONE Stop: 04/11/21 07:37 Potassium Chloride (Potassium Chloride 20 Meq Tab.Er) 40 meq PO ONETIME ONE Stop: 04/10/21 18:21 Last Admin: 04/10/21 18:30 Dose: 40 meq Documented by: Propofol (Propofol 200 Mg/20 Ml Sdv) Confirm Administered Dose 200 mg .ROUTE .STK-MED ONE Stop: 04/11/21 07:37 Rocuronium Brutus (Rocuronium 50 Mg/5 Ml Vial) Confirm Administered Dose 50 mg .ROUTE .STK-MED ONE Stop: 04/11/21 07:37 Succinylcholine Chloride (Succinylcholine 200 Mg/10 Ml Mdv) Confirm Administered Dose 200 mg .ROUTE .STK-MED ONE Stop: 04/11/21 07:37 Sugammadex Sodium (Sugammadex Sodium 200 Mg/2 Ml Vial) Confirm Administered Dose 200 mg .ROUTE .STK-MED ONE Stop: 04/11/21 09:18 - Exam Quality Assessment: Supplemental Oxygen Urinary Catheter Total Time: 0Days 0Hours General: Alert, Oriented, Cooperative, No Acute Distress Lungs: Clear to Auscultation, Normal Respiratory Effort Cardiovascular: Regular Rate, Regular Rhythm, No Murmurs GI/Abdominal Exam: Soft, No Distention Extremities: No Pedal Edema. No: Increased Warmth Skin: Warm, Dry Wound/Incisions: Dressing Dry and Intact, No Drainage Psy/Mental Status: Alert, Normal Affect - Patient Data Lab Results Last 24 hrs: Laboratory Results - last 24 hr 04/10/21 04/10/21 04/10/21 Range/Units 17:55 17:55 17:58 WBC 24.1 H (4.5-11.0) K/uL RBC 4.91 (3.30-5.50) M/uL Hgb 15.6 H D (12.0-15.0) g/dL Hct 44.3 (36.0-48.0) % MCV 90 (80-98) fL MCH 32 H (27-31) pg MCHC 35 (32-36) % Plt Count 298 (150-400) K/uL Neut % (Auto) (36-66) % Lymph % (Auto) (24-44) % [place] % (Auto) (2-6) % Eos % (Auto) (2-4) % Baso % (Auto) (0-1) % Sodium 131 L (140-148) mmol/L Potassium 2.9 L* (3.6-5.2) mmol/L Chloride 94 L (100-108) mmol/L Carbon Dioxide 27 (21-32) mmol/L Anion Gap 12.9 (5.0-14.0) mmol/L BUN 19 H (7-18) mg/dL Creatinine 0.9 (0.6-1.0) mg/dL Est Cr Clr Drug Dosing 50.29 mL/min Estimated GFR (MDRD) > 60 (>60) Glucose 107 H (74-106) mg/dL Calcium 9.5 (8.5-10.1) mg/dL Total Bilirubin 0.8 (0.2-1.0) mg/dL AST 27 (15-37) U/L ALT 27 (12-78) U/L Alkaline Phosphatase 71 (46-116) U/L Total Protein 8.2 (6.4-8.2) g/dL Albumin 3.7 (3.4-5.0) g/dL Globulin 4.5 H (2.3-3.5) g/dL Albumin/Globulin Ratio 0.8 L (1.2-2.2) Urine Color (YELLOW) Urine Appearance (CLEAR) Urine pH (5.0-8.0) Ur Specific [place] (1.008-1.030) Urine Protein (NEGATIVE) mg/dL Urine Glucose (UA) (NEGATIVE) mg/dL Urine Ketones (NEGATIVE) mg/dL Urine Occult Blood (NEGATIVE) Urine Nitrite (NEGATIVE) Urine Bilirubin (NEGATIVE) Urine Urobilinogen (0.2-1.0) EU/dL Ur Leukocyte Esterase (NEGATIVE) Urine RBC (0-5) Urine WBC (0-5) Ur Epithelial Cells Amorphous Sediment Urine Bacteria Urine Mucus Influenza Type A RNA Negative (NEGATIVE) RSV RNA (INAAT) Negative (NEGATIVE) Influenza Type B RNA Negative (NEGATIVE) SARS-CoV-2 RNA (LINNEA) Negative (NEGATIVE) 04/10/21 04/11/21 04/11/21 Range/Units 22:42 04:55 04:55 WBC 16.1 H (4.5-11.0) K/uL RBC 4.61 (3.30-5.50) M/uL Hgb 14.7 (12.0-15.0) g/dL Hct 41.7 (36.0-48.0) % MCV 91 (80-98) fL MCH 32 H (27-31) pg MCHC 35 (32-36) % Plt Count 298 (150-400) K/uL Neut % (Auto) 82.4 H (36-66) % Lymph % (Auto) 10.1 L (24-44) % [place] % (Auto) 7.3 H (2-6) % Eos % (Auto) 0.1 L (2-4) % Baso % (Auto) 0.1 (0-1) % Sodium 131 L (140-148) mmol/L Potassium 3.5 L (3.6-5.2) mmol/L Chloride 97 L (100-108) mmol/L Carbon Dioxide 27 (21-32) mmol/L Anion Gap 10.5 (5.0-14.0) mmol/L BUN 18 (7-18) mg/dL Creatinine 0.7 (0.6-1.0) mg/dL Est Cr Clr Drug Dosing 64.66 mL/min Estimated GFR (MDRD) > 60 (>60) Glucose 126 H (74-106) mg/dL Calcium 8.7 (8.5-10.1) mg/dL Total Bilirubin (0.2-1.0) mg/dL AST (15-37) U/L ALT (12-78) U/L Alkaline Phosphatase (46-116) U/L Total Protein (6.4-8.2) g/dL Albumin (3.4-5.0) g/dL Globulin (2.3-3.5) g/dL Albumin/Globulin Ratio (1.2-2.2) Urine Color Yellow (YELLOW) Urine Appearance Slightly cloudy A (CLEAR) Urine pH 7.5 (5.0-8.0) Ur Specific [place] >= 1.030 (1.008-1.030) Urine Protein >=300 H (NEGATIVE) mg/dL Urine Glucose (UA) Negative (NEGATIVE) mg/dL Urine Ketones 15 H (NEGATIVE) mg/dL Urine Occult Blood Small H (NEGATIVE) Urine Nitrite Negative (NEGATIVE) Urine Bilirubin Negative (NEGATIVE) Urine Urobilinogen 0.2 (0.2-1.0) EU/dL Ur Leukocyte Esterase Negative (NEGATIVE) Urine RBC 5-10 H (0-5) Urine WBC 5-10 H (0-5) Ur Epithelial Cells Rare Amorphous Sediment Not seen Urine Bacteria Many Urine Mucus Not seen Influenza Type A RNA (NEGATIVE) RSV RNA (INAAT) (NEGATIVE) Influenza Type B RNA (NEGATIVE) SARS-CoV-2 RNA (LINNEA) (NEGATIVE) Result Diagrams: 04/11/21 04:55 04/11/21 04:55 Sepsis Event Note - Evaluation Sepsis Screening Result: No Definite Risk - Focused Exam Vital Signs: Vital Signs Temp Pulse Resp BP Pulse Ox 04/11/21 10:34 36.6 C 88 18 173/73 H 92 L 04/11/21 10:00 36.3 C 88 14 192/86 H 95 04/11/21 09:55 88 14 197/83 H 96 04/11/21 09:50 88 14 197/84 H 97 04/11/21 09:45 36.2 C 90 14 197/96 H 95 04/11/21 09:40 94 14 194/101 H 98 04/11/21 09:35 96 14 189/101 H 98 04/11/21 09:30 36 C L 102 H 14 197/88 H 100 04/11/21 08:09 36.6 C 90 12 196/82 H 97 04/11/21 07:51 95 04/11/21 05:00 90 15 164/88 H 94 L 04/11/21 01:00 36.2 C 87 9 L 174/77 H 98 - Problem List Review Problem List Initiated/Reviewed/Updated: Yes - My Orders Last 24 Hours: My Active Orders 04/11/21 09:14 CULTURE URINE [RM] Routine 04/11/21 11:54 Potassium Chloride [Klor-Con M20] 40 meq PO ONETIME ONE 04/11/21 17:45 Insert Urinary Catheter [OM.PC] Q24H 04/12/21 05:11 BASIC METABOLIC PANEL,BMP [CHEM] AM 04/12/21 08:00 cefTRIAXone [Rocephin] 1 gm Sodium Chloride 0.9% [Normal Saline AdvBag] 50 ml IV Q24H - Plan Plan:: ASSESSMENT AND PLAN - Intertrochanteric fracture of left hip-status post surgical treatment with IM nailing on 04/11. Doing well postoperatively so far. -Continue IV fluids overnight -Symptomatic management of pain and nausea -Morrissey catheter for strict intake and output monitoring. -consult to PT and OT, weightbearing as tolerated -Son Steven would like to be called with updates [phone] Hypokalemia-improved with supplementation but still low. -Supplement this evening -Recheck in the morning Elevated blood pressures-history of hypertension but not currently on meds and blood pressure has been normal as an outpatient. We will monitor this over the next 12 to 24 hours. If blood pressure remains significantly elevated we may need to consider antihypertensive therapy. Possible urinary tract infection-urinalysis moderately suggestive of infection. Patient did not have any symptoms. -Cefazolin today (postoperative antibiotic) -Start ceftriaxone tomorrow morning -Follow-up urine culture Maintenance issues - - DVT prophylaxis -SCD today, enoxaparin tomorrow - GI prophylaxis -Protonix 40 mg daily - Nutrition -regular diet - Morrissey catheter -placed for strict intake and output monitoring CODE STATUS -FULL for surgery then would like to be DNR/DNI Disposition -I would anticipate discharge to [facility] with - they both live there. Marcus Trujillo M.D.
[2021-04-11] MEDS ORDERED: Potassium Chloride 20 MEQ Tab.ER PO ONE (12:15)
[2021-04-11] MEDS: ceFAZolin 1 GM in Premix Bag 1 BAG IV SCH ×2 (15:04→22:18)
--- NOTE | 2021-04-11 15:26 | CR ---
CHEST: Portable 04/10/2021 at 10:15 PM CLINICAL HISTORY:Preop COMPARISON:2015 FINDINGS: There is elevation of the left hemidiaphragm which is a change since the 2015 study. Heart size and pulmonary vascularity are normal. There are atherosclerotic changes in the aorta. No infiltrates are seen. Impression: Interval elevation of the left hemidiaphragm since prior study of 2014. Etiology unknown
[2021-04-11] MEDS: Docusate Sodium 100 MG Cap PO SCH (20:27)
[2021-04-11] MEDS: Nozin Nasal Sanitizer NASBOTH SCH (20:32)
[2021-04-12] MEDS: cefTRIAXone 1 GM in Sodium Chloride 0.9% 50 ML IV SCH (07:46)
[2021-04-12] MEDS: Acetaminophen 325 MG Tab PO SCH ×3 (07:46→17:01)
--- NOTE | 2021-04-12 08:33 | PCM.SURGPN ---
- General Info Date of Service: 04/10/21 Date of Surgery/Procedure: 04/11/21 POD#: 1 Admission Diagnosis/Problem: Hip fracture requiring operative repair Functional Status: Reports: Pain Controlled, Tolerating Diet - Review of Systems General: Denies: Fever, Chills HEENT: Reports: No Symptoms Pulmonary: Denies: Shortness of Breath Cardiovascular: Denies: Chest Pain, Lightheadedness Genitourinary: Denies: Flank Pain Musculoskeletal: Reports: Back Pain, Leg Pain (left ), Joint Pain (left hip ) Skin: Reports: Bruising Neurological: Reports: No Symptoms Psychiatric: Reports: No Symptoms - Patient Data Vitals - Most Recent: Last Vital Signs Temp 97.8 F 04/12/21 07:18 Pulse 96 04/12/21 07:18 Resp 18 04/12/21 07:18 BP 156/76 H 04/12/21 07:18 Pulse Ox 98 04/12/21 07:18 Weight - Most Recent: 187 lb 8 oz I&O - Last 24 Hours: Intake & Output 04/11/21 04/12/21 04/12/21 22:59 06:59 14:59 Intake Total 1873 Output Total 450 450 Balance 1423 -450 Lab Results Last 24 Hrs: Laboratory Results - last 24 hr 04/12/21 04/12/21 Range/Units 04:25 04:25 WBC 15.2 H (4.5-11.0) K/uL RBC 4.08 (3.30-5.50) M/uL Hgb 13.1 (12.0-15.0) g/dL Hct 38.1 (36.0-48.0) % MCV 93 (80-98) fL MCH 32 H (27-31) pg MCHC 34 (32-36) % Plt Count 253 (150-400) K/uL Sodium 134 L (140-148) mmol/L Potassium 4.0 (3.6-5.2) mmol/L Chloride 100 (100-108) mmol/L Carbon Dioxide 26 (21-32) mmol/L Anion Gap 12.0 (5.0-14.0) mmol/L BUN 15 (7-18) mg/dL Creatinine 0.8 (0.6-1.0) mg/dL Est Cr Clr Drug Dosing 56.58 mL/min Estimated GFR (MDRD) > 60 (>60) Glucose 110 H (74-106) mg/dL Calcium 8.3 L (8.5-10.1) mg/dL [place] Results Last 24 Hrs: Microbiology 04/11/21 09:14 Urine Culture - Preliminary Urine, Catheterized Med Orders - Current: Current Medications Acetaminophen (Acetaminophen 325 Mg Tab) 650 mg PO Q6H [facility] Last Admin: 04/12/21 07:46 Dose: 650 mg Documented by: Albuterol (Albuterol 0.083% 2.5 Mg/3 Ml Neb Soln) 2.5 mg NEB Q4H PRN PRN Reason: Shortness Of Breath/wheezing Bandage/Support Products (Nozin Nasal Real Estate Leasing Agent) 1 applic NASBOTH BID [facility] Stop: 04/18/21 21:01 Last Admin: 04/11/21 20:32 Dose: Not Given Documented by: Bisacodyl (Bisacodyl 5 Mg Tab) 5 mg PO DAILY PRN PRN Reason: Constipation Docusate Sodium (Docusate Sodium 100 Mg Cap) 100 mg PO BID [facility] Last Admin: 04/11/21 20:27 Dose: 100 mg Documented by: Enoxaparin Sodium (Enoxaparin 30 Mg/0.3 Ml Syringe) 30 mg SUBCUT DAILY [facility] Sodium Chloride (Normal Saline) 1,000 mls @ 125 mls/hr IV ASDIRECTED [facility] Last Infusion: 04/12/21 02:00 Dose: 25 mls/hr Documented by: Ceftriaxone Sodium 1 gm/ (Sodium Chloride) 50 mls @ 100 mls/hr IV Q24H [facility] Last Admin: 04/12/21 07:46 Dose: 100 mls/hr Documented by: Lorazepam (Lorazepam 2 Mg/Ml Sdv) 1 mg IV Q6H PRN PRN Reason: Nausea/Vomiting Magnesium Hydroxide (Magnesium Hydroxide 400 Mg/5 Ml Susp 30 Ml Cup) 30 ml PO Q6H PRN PRN Reason: Stool Softener Magnesium Oxide (Magnesium Oxide 400 Mg Tab) 400 mg PO DAILY [facility] Morphine Sulfate (Morphine 2 Mg/Ml Syringe) 1 mg IV Q1H PRN PRN Reason: Breakthrough Pain I-Throid 6.5 Mg (Ptom) 0 mg PO DAILY [facility] Ondansetron HCl (Ondansetron 4 Mg/2 Ml Sdv) 4 mg IVPUSH Q4H PRN PRN Reason: Nausea/Vomiting Last Admin: 04/10/21 19:12 Dose: 4 mg Documented by: Ondansetron HCl (Ondansetron 4 Mg Tab.Dis) 4 mg PO Q6H PRN PRN Reason: Nausea able to take PO Oxycodone HCl (Oxycodone 5 Mg Tab) 5 - 10 mg PO Q4H PRN PRN Reason: Pain Tramadol HCl (Tramadol 50 Mg Tab) 50 mg PO Q6H PRN PRN Reason: Pain (mild 1-3) Discontinued Medications Acetaminophen (Acetaminophen 325 Mg Tab) 650 mg PO Q4H PRN PRN Reason: Pain (Mild 1-3)/fever Last Admin: 04/11/21 06:28 Dose: 650 mg Documented by: Bupivacaine HCl/Epinephrine Bitart (Bupivacaine 0.5%/Epinephrine 1:200,000 50 Ml Mdv) Confirm Administered Dose 50 ml .ROUTE .STK-MED ONE Stop: 04/11/21 07:34 Bupivacaine HCl/Epinephrine Bitart (Bupivacaine 0.5%/Epinephrine 1:200,000 30 Ml Sdv) 30 ml INJECT .STK-MED ONE Stop: 04/11/21 09:15 Last Admin: 04/11/21 09:14 Dose: 30 ml Documented by: Dexamethasone (Dexamethasone 4 Mg/Ml Sdv) Confirm Administered Dose 4 mg .ROUTE .STK-MED ONE Stop: 04/11/21 07:37 Docusate Sodium (Docusate Sodium 100 Mg Cap) 100 mg PO BID PRN PRN Reason: Constipation Fentanyl (Fentanyl 100 Mcg/2 Ml Sdv) 50 mcg IM ONETIME ONE Stop: 04/10/21 16:06 Last Admin: 04/10/21 16:12 Dose: 50 mcg Documented by: Fentanyl (Fentanyl 100 Mcg/2 Ml Sdv) 50 mcg IVPUSH ONETIME ONE Stop: 04/10/21 17:39 Last Admin: 04/10/21 17:54 Dose: 50 mcg Documented by: Fentanyl (Fentanyl 250 Mcg/5 Ml Sdv) Confirm Administered Dose 250 mcg .ROUTE .STK-MED ONE Stop: 04/11/21 07:36 Glycopyrrolate (Glycopyrrolate 0.2 Mg/Ml 5 Ml Mdv) Confirm Administered Dose 1 mg .ROUTE .STK-MED ONE Stop: 04/11/21 07:37 Hydromorphone HCl (Hydromorphone 1 Mg/Ml Syringe) 1 mg IVPUSH ONETIME ONE Stop: 04/10/21 18:36 Last Admin: 04/10/21 18:52 Dose: 1 mg Documented by: Hydromorphone HCl (Hydromorphone/Normal Saline 15 Mg/30 Ml Flexboard Operator) 0 mg IV ASDIRECTED PRN; Protocol PRN Reason: Pain Last Admin: 04/10/21 21:16 Dose: 15 mg Documented by: Cefazolin Sodium/Dextrose 1 gm (/ Premix) 50 mls @ 100 mls/hr IV ONETIME ONE Stop: 04/11/21 07:59 Last Admin: 04/11/21 07:58 Dose: 100 mls/hr Documented by: Potassium Chloride 20 meq/ (Premix) 100 mls @ 50 mls/hr IV ONETIME ONE Stop: 04/10/21 20:19 Last Admin: 04/10/21 18:54 Dose: 50 mls/hr Documented by: Sodium Chloride (Normal Saline) 1,000 mls @ 100 mls/hr IV ASDIRECTED [facility] Last Admin: 04/11/21 07:00 Dose: 100 mls/hr Documented by: Cefazolin Sodium/Dextrose 1 gm (/ Premix) 50 mls @ 100 mls/hr IV Q8H [facility] Stop: 04/11/21 23:29 Last Admin: 04/11/21 22:18 Dose: 100 mls/hr Documented by: Lidocaine HCl (Lidocaine 1% 5 Ml Sdv) 5 ml INJECT ONETIME ONE Stop: 04/10/21 18:36 Last Admin: 04/10/21 18:55 Dose: 5 ml Documented by: Naloxone HCl (Naloxone 0.4 Mg/Ml Sdv) 0.4 mg IVPUSH Q2M PRN PRN Reason: Respiratory Distress Neostigmine Methylsulfate (Neostigmine Methylsulfate 1 Mg/Ml 5 Ml Syringe) Confirm Administered Dose 5 mg .ROUTE .STK-MED ONE Stop: 04/11/21 07:37 Ondansetron HCl (Ondansetron 4 Mg/2 Ml Sdv) Confirm Administered Dose 4 mg .ROUTE .STK-MED ONE Stop: 04/10/21 19:09 Last Admin: 04/11/21 01:15 Dose: Not Given Documented by: Ondansetron HCl (Ondansetron 4 Mg/2 Ml Sdv) Confirm Administered Dose 4 mg .ROUTE .STK-MED ONE Stop: 04/11/21 07:37 Oxycodone HCl (Oxycodone 5 Mg Tab) 5 mg PO Q4H PRN PRN Reason: Pain (moderate 4-6) Last Admin: 04/11/21 07:23 Dose: 5 mg Documented by: Potassium Chloride (Potassium Chloride 20 Meq Tab.Er) 40 meq PO ONETIME ONE Stop: 04/10/21 18:21 Last Admin: 04/10/21 18:30 Dose: 40 meq Documented by: Potassium Chloride (Potassium Chloride 20 Meq Tab.Er) 40 meq PO ONETIME ONE Stop: 04/11/21 12:16 Last Admin: 04/11/21 12:53 Dose: 40 meq Documented by: Propofol (Propofol 200 Mg/20 Ml Sdv) Confirm Administered Dose 200 mg .ROUTE .STK-MED ONE Stop: 04/11/21 07:37 Rocuronium [place] (Rocuronium 50 Mg/5 Ml Vial) Confirm Administered Dose 50 mg .ROUTE .STK-MED ONE Stop: 04/11/21 07:37 Succinylcholine Chloride (Succinylcholine 200 Mg/10 Ml Mdv) Confirm Administered Dose 200 mg .ROUTE .STK-MED ONE Stop: 04/11/21 07:37 Sugammadex Sodium (Sugammadex Sodium 200 Mg/2 Ml Vial) Confirm Administered Dose 200 mg .ROUTE .STK-MED ONE Stop: 04/11/21 09:18 - Exam Wound/Incisions: Healing Well, Dressing Dry and Intact, No Drainage Quality Assessment: Urine Catheter, DVT Prophylaxis General: Alert, Oriented, Cooperative, No Acute Distress Extremities: Pedal Edema (very mild, LLE ), Leg Pain (left ), Limited Range of Motion (of LLE due to recent surgery, post-operative pain ). No: Joint Swelling, Zainab's Sign Skin: Dry, Intact, Ecchymosis Neurological: No New Focal Deficit Psy/Mental Status: Alert, Normal Affect, Normal Mood Sepsis Event Note - Evaluation Sepsis Screening Result: Sepsis Risk - Focused Exam Vital Signs: Vital Signs Temp Pulse Resp BP Pulse Ox 04/12/21 07:18 97.8 F 96 18 156/76 H 98 04/12/21 03:45 97.8 F 97 16 179/81 H 97 04/11/21 22:14 97.8 F 79 18 168/84 H 97 - Problem List & Annotations (1) Status post hip surgery SNOMED Code(s): 640833215, 660429814 Code(s): Z98.890 - OTHER SPECIFIED POSTPROCEDURAL STATES Status: Acute Current Visit: Yes Annotation/Comment:: left closed reduction and intramedullary fixation (TFN) DOS: 04/11/21 - Problem List Review Problem List Initiated/Reviewed/Updated: Yes - My Orders Last 24 Hours: Active Orders 24 hr Category Date Time Status Patient Status [ADT] Routine ADT 04/11/21 09:24 Active Ambulate [RC] PER UNIT ROUTINE Care 04/11/21 09:24 Active Antiembolic Devices [RC] .Routine Care 04/11/21 09:25 Active Head of Bed Elevation [RC] ASDIRECTED Care 04/11/21 09:24 Active Insert Urinary Catheter [OM.PC] Q24H Care 04/11/21 17:45 Ordered Neurovascular Check [RC] BID Care 04/11/21 09:24 Active Notify Provider Intake and Out [RC] ASDIRECTED Care 04/11/21 09:25 Active Notify Provider Vital Signs [RC] ASDIRECTED Care 04/11/21 09:25 Active Pneumonia Education [RC] UPON Care 04/11/21 09:24 Active RT Incentive Spirometry [RC] Q1HWA Care 04/11/21 09:24 Active Up to Chair [RC] QID Care 04/11/21 09:24 Active Vital Signs [RC] Q4H Care 04/11/21 09:24 Active Wound Care [RC] Q12H Care 04/11/21 09:24 Active Consult to Case Management/Trestle Builder [CONS] Cons 04/11/21 09:25 Active Routine PT Evaluation and Treatment [CONS] Routine Cons 04/11/21 09:24 Active PT Evaluation and Treatment [CONS] Routine Cons 04/11/21 09:25 Active Regular Diet [DIET] Diet 04/11/21 Lunch Active Fluoro Up To 1Hr [CR] Routine Exams 04/11/21 07:28 Taken CULTURE URINE [RM] Routine Lab 04/11/21 09:14 Results *I-Throid Med 04/12/21 09:00 Active 0 mg PO DAILY Acetaminophen [TylenoL] Med 04/11/21 12:00 Active 650 mg PO Q6H Docusate Sodium [Colace] Med 04/11/21 21:00 Active 100 mg PO BID Enoxaparin [Lovenox] Med 04/12/21 09:00 Active 30 mg SUBCUT DAILY Magnesium Hydroxide [Milk of Magnesia] Med 04/11/21 09:24 Active 30 ml PO Q6H PRN Magnesium Oxide Med 04/12/21 09:00 Active 400 mg PO DAILY Morphine Med 04/11/21 09:24 Active 1 mg IV Q1H PRN Nozin [ Nasal Real Estate Leasing Agent] Med 04/11/21 21:00 Active 1 applic NASBOTH BID Sodium Chloride 0.9% [Normal Saline] 1,000 ml Med 04/11/21 09:30 Active IV ASDIRECTED cefTRIAXone [Rocephin] 1 gm Med 04/12/21 08:00 Active Sodium Chloride 0.9% [Normal Saline AdvBag] 50 ml IV Q24H oxyCODONE Med 04/12/21 08:09 Ordered 5 - 10 mg PO Q4H PRN traMADol [Ultram] Med 04/11/21 09:24 Active 50 mg PO Q6H PRN Antiembolic Hose [OM.PC] Per Unit Routine Oth 04/11/21 09:24 Ordered DME for Inpatients [OM.PC] Routine Oth 04/11/21 09:24 Ordered DVT/VTE Prophylaxis Reflex [OM.PC] Routine Oth 04/11/21 09:24 Ordered Ice Therapy [OM.PC] Per Unit Routine Oth 04/11/21 09:24 Ordered Oral Care [OM.PC] Routine Oth 04/11/21 09:24 Ordered Sequential Compression Device [OM.PC] Routine Oth 04/11/21 09:25 Ordered Weight bearing status [OM.PC] Routine Oth 04/11/21 09:24 Ordered Medication Orders Acetaminophen (Acetaminophen 325 Mg Tab) 650 mg PO Q6H [facility] Last Admin: 04/12/21 07:46 Dose: 650 mg Documented by: Admin: 04/11/21 23:39 Dose: Not Given Documented by: Admin: 04/11/21 17:39 Dose: 650 mg Documented by: Admin: 04/11/21 11:50 Dose: 650 mg Documented by: LAURA Albuterol (Albuterol 0.083% 2.5 Mg/3 Ml Neb Soln) 2.5 mg NEB Q4H PRN PRN Reason: Shortness Of Breath/wheezing Bandage/Support Products (Nozin Nasal Real Estate Leasing Agent) 1 applic NASBOTH BID [facility] Stop: 04/18/21 21:01 Last Admin: 04/11/21 20:32 Dose: Not Given Documented by: JACLYN Bisacodyl (Bisacodyl 5 Mg Tab) 5 mg PO DAILY PRN PRN Reason: Constipation Docusate Sodium (Docusate Sodium 100 Mg Cap) 100 mg PO BID [facility] Last Admin: 04/11/21 20:27 Dose: 100 mg Documented by: JACLYN Enoxaparin Sodium (Enoxaparin 30 Mg/0.3 Ml Syringe) 30 mg SUBCUT DAILY [facility] Sodium Chloride (Normal Saline) 1,000 mls @ 125 mls/hr IV ASDIRECTED [facility] Last Infusion: 04/12/21 02:00 Dose: 25 mls/hr Documented by: Admin: 04/11/21 19:12 Dose: 125 mls/hr Documented by: Infusion: 04/11/21 19:12 Dose: 125 mls/hr Documented by: Admin: 04/11/21 11:19 Dose: 125 mls/hr Documented by: REJI Ceftriaxone Sodium 1 gm/ (Sodium Chloride) 50 mls @ 100 mls/hr IV Q24H [facility] Last Admin: 04/12/21 07:46 Dose: 100 mls/hr Documented by: RENE Lorazepam (Lorazepam 2 Mg/Ml Sdv) 1 mg IV Q6H PRN PRN Reason: Nausea/Vomiting Magnesium Hydroxide (Magnesium Hydroxide 400 Mg/5 Ml Susp 30 Ml Cup) 30 ml PO Q6H PRN PRN Reason: Stool Softener Magnesium Oxide (Magnesium Oxide 400 Mg Tab) 400 mg PO DAILY [facility] Morphine Sulfate (Morphine 2 Mg/Ml Syringe) 1 mg IV Q1H PRN PRN Reason: Breakthrough Pain I-Throid 6.5 Mg (Ptom) 0 mg PO DAILY [facility] Ondansetron HCl (Ondansetron 4 Mg/2 Ml Sdv) 4 mg IVPUSH Q4H PRN PRN Reason: Nausea/Vomiting Last Admin: 04/10/21 19:12 Dose: 4 mg Documented by: GILBERT Ondansetron HCl (Ondansetron 4 Mg Tab.Dis) 4 mg PO Q6H PRN PRN Reason: Nausea able to take PO Oxycodone HCl (Oxycodone 5 Mg Tab) 5 - 10 mg PO Q4H PRN PRN Reason: Pain Tramadol HCl (Tramadol 50 Mg Tab) 50 mg PO Q6H PRN PRN Reason: Pain (mild 1-3) - Assessment Assessment (Free Text/Narrative):: Patient is a very pleasant 80-year-old female, status post left closed reduction and intramedullary fixation of an intertrochanteric fracture, postop day #1. Patient tolerated surgery very well with no complications. Patient had no acute events overnight. Patient has remained hemodynamically stable thus far, with the exception of some hypertensive blood pressure readings. Patient does have a history of hypertension treated with blood pressure medications in the distant past. Also required 2L O2 overnight to maintain oxygen saturation >90%. On room air this morning, denied dyspnea. Patient did have hypokalemia prior to surgery, this has been corrected with potassium replacement therapy. Potassium improved at 4.0 this morning. Postoperative day #1 hemoglobin stable at 13.1. Calcium declined this morning at 8.3. Patient did have a borderline UA from the time of admission. Culture obtained yesterday showed gram-negative rods, awaiting further sensitivities at this time. Catheter remains in place at this time due to limited ambulation abil ities, but anticipate taking out this morning. Patient reports hip pain relatively controlled at rest. Has had difficulty remembering to push the PROSECUTING ATTORNEY pump and often gets behind on pain control. Patient did sleep well throughout the night without much disruption from left hip pain. Denied calf pain or paresthesias to left lower extremity. Patient has been tolerating regular diet well without nausea or emesis. Patient did work with physical therapy yesterday following surgery; completed various exercises and stretches for left hip while in bed. Patient did transfer later in the evening with nursing staff from bed to chair with FWW and x2 assist. Patient did improve this morning with transfer from bed to chair with a pivot utilizing FWW and x1 assist. Has not ambulated further than bed to chair transfer. Plan: * Communication to family: contacted son, Steven, following surgery yesterday with surgical update. Contacted daughter, Brittaney, this morning with post-operative update. Brittaney's phone #: [phone]. * Hospitalist to kindly continue medical management of the patient. * Continue with every 4 hours vital monitoring assessment. If blood pressure remains elevated today, may need to consider antihypertensive medication. * Ceftriaxone administration today for UTI and postsurgical prophylaxis. Morrissey catheter to be removed this morning if ambulation abilities allow. * IV maintenance fluids were reduced to TKO. * Functional mobility of LLE: * Patient to continue with physical therapy services daily while in the hospital. * May continue to weight-bear as tolerated on the left lower extremity. * Would benefit from leg regional administrative assistant to assist with transferring leg into bed. * DVT/VTE prophylaxis: * Chemical- 30 mg subcutaneous Lovenox daily. * Mechanical- bilateral LE SCDs. * Pain control regimen adjusted as below (also see in orders): * Discontinued Dilaudid PROSECUTING ATTORNEY * Continue with 650 mg PO Tylenol q6 hrs * Continue with 50 mg PO Tramadol q4 hrs prn for mild pain (1-3) * 5 mg PO Oxycodone q4 hrs prn for moderate pain (4-6) * 10 mg PO Oxycodone q4 hrs prn for severe pain (7-10) * 1 mg IV Morphine q1 hr prn for breakthrough pain * Discharge: Anticipate returning to [facility] at time of discharge when patient is medically stable and functional mobility improves.
[2021-04-12] MEDS: Enoxaparin 30 MG/0.3 ML Syringe SUBCUT SCH (09:02)
[2021-04-12] MEDS: Docusate Sodium 100 MG Cap PO SCH ×2 (09:02→20:19)
[2021-04-12] MEDS: Magnesium Oxide 400 MG Tab PO SCH (09:02)
[2021-04-12] MEDS: [UNRECOGNIZED DRUG - OTHER] PO SCH (09:03)
[2021-04-12] MEDS: Nozin Nasal Sanitizer NASBOTH SCH ×2 (09:03→20:19)
--- NOTE | 2021-04-12 10:12 | PCM.PN ---
- General Info Date of Service: 04/12/21 Subjective Update: No acute events overnight. Patient feels well. She has minimal discomfort in the left hip area. She was able to get from the bed to the chair with minimal assistance. No numbness or tingling down the left leg. Hemoglobin level has been stable postoperatively. Vital signs are stable other than a mild elevation of her blood pressure. No nausea or dyspnea. Patient thinks she is doing quite well. Functional Status: Reports: Pain Controlled, Tolerating Diet - Review of Systems Musculoskeletal: Reports: Joint Pain (mild left hip ) - Patient Data Vitals - Most Recent: Last Vital Signs Temp 36.6 C 04/12/21 07:18 Pulse 96 04/12/21 07:18 Resp 18 04/12/21 07:18 BP 156/76 H 04/12/21 07:18 Pulse Ox 98 04/12/21 07:18 Weight - Most Recent: 85.049 kg I&O - Last 24 Hours: Intake & Output 04/11/21 04/12/21 04/12/21 22:59 06:59 14:59 Intake Total 1873 Output Total 450 450 Balance 1423 -450 Lab Results Last 24 Hours: Laboratory Results - last 24 hr 04/12/21 04/12/21 Range/Units 04:25 04:25 WBC 15.2 H (4.5-11.0) K/uL RBC 4.08 (3.30-5.50) M/uL Hgb 13.1 (12.0-15.0) g/dL Hct 38.1 (36.0-48.0) % MCV 93 (80-98) fL MCH 32 H (27-31) pg MCHC 34 (32-36) % Plt Count 253 (150-400) K/uL Sodium 134 L (140-148) mmol/L Potassium 4.0 (3.6-5.2) mmol/L Chloride 100 (100-108) mmol/L Carbon Dioxide 26 (21-32) mmol/L Anion Gap 12.0 (5.0-14.0) mmol/L BUN 15 (7-18) mg/dL Creatinine 0.8 (0.6-1.0) mg/dL Est Cr Clr Drug Dosing 56.58 mL/min Estimated GFR (MDRD) > 60 (>60) Glucose 110 H (74-106) mg/dL Calcium 8.3 L (8.5-10.1) mg/dL Cosme Results Last 24 Hours: Microbiology 04/11/21 09:14 Urine Culture - Preliminary Urine, Catheterized Med Orders - Current: Current Medications Acetaminophen (Acetaminophen 325 Mg Tab) 650 mg PO Q6H [facility] Last Admin: 04/12/21 07:46 Dose: 650 mg Documented by: Albuterol (Albuterol 0.083% 2.5 Mg/3 Ml Neb Soln) 2.5 mg NEB Q4H PRN PRN Reason: Shortness Of Breath/wheezing Bandage/Support Products (Nozin Nasal Assistant [employer]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) 1 applic NASBOTH BID [facility] Stop: 04/18/21 21:01 Last Admin: 04/12/21 09:03 Dose: 1 applic Documented by: Bisacodyl (Bisacodyl 5 Mg Tab) 5 mg PO DAILY PRN PRN Reason: Constipation Docusate Sodium (Docusate Sodium 100 Mg Cap) 100 mg PO BID [facility] Last Admin: 04/12/21 09:02 Dose: 100 mg Documented by: Enoxaparin Sodium (Enoxaparin 30 Mg/0.3 Ml Syringe) 30 mg SUBCUT DAILY [facility] Last Admin: 04/12/21 09:02 Dose: 30 mg Documented by: Ceftriaxone Sodium 1 gm/ (Sodium Chloride) 50 mls @ 100 mls/hr IV Q24H [facility] Last Admin: 04/12/21 07:46 Dose: 100 mls/hr Documented by: Lorazepam (Lorazepam 2 Mg/Ml Sdv) 1 mg IV Q6H PRN PRN Reason: Nausea/Vomiting Magnesium Hydroxide (Magnesium Hydroxide 400 Mg/5 Ml Susp 30 Ml Cup) 30 ml PO Q6H PRN PRN Reason: Stool Softener Magnesium Oxide (Magnesium Oxide 400 Mg Tab) 400 mg PO DAILY [facility] Last Admin: 04/12/21 09:02 Dose: 400 mg Documented by: Morphine Sulfate (Morphine 2 Mg/Ml Syringe) 1 mg IV Q1H PRN PRN Reason: Breakthrough Pain I-Throid 6.5 Mg (Ptom) 0 mg PO DAILY [facility] Last Admin: 04/12/21 09:03 Dose: Not Given Documented by: Ondansetron HCl (Ondansetron 4 Mg/2 Ml Sdv) 4 mg IVPUSH Q4H PRN PRN Reason: Nausea/Vomiting Last Admin: 04/10/21 19:12 Dose: 4 mg Documented by: Ondansetron HCl (Ondansetron 4 Mg Tab.Dis) 4 mg PO Q6H PRN PRN Reason: Nausea able to take PO Oxycodone HCl (Oxycodone 5 Mg Tab) 5 - 10 mg PO Q4H PRN PRN Reason: Pain Tramadol HCl (Tramadol 50 Mg Tab) 50 mg PO Q6H PRN PRN Reason: Pain (mild 1-3) Discontinued Medications Acetaminophen (Acetaminophen 325 Mg Tab) 650 mg PO Q4H PRN PRN Reason: Pain (Mild 1-3)/fever Last Admin: 04/11/21 06:28 Dose: 650 mg Documented by: Bupivacaine HCl/Epinephrine Bitart (Bupivacaine 0.5%/Epinephrine 1:200,000 50 Ml Mdv) Confirm Administered Dose 50 ml .ROUTE .STK-MED ONE Stop: 04/11/21 07:34 Bupivacaine HCl/Epinephrine Bitart (Bupivacaine 0.5%/Epinephrine 1:200,000 30 Ml Sdv) 30 ml INJECT .STK-MED ONE Stop: 04/11/21 09:15 Last Admin: 04/11/21 09:14 Dose: 30 ml Documented by: Dexamethasone (Dexamethasone 4 Mg/Ml Sdv) Confirm Administered Dose 4 mg .ROUTE .STK-MED ONE Stop: 04/11/21 07:37 Docusate Sodium (Docusate Sodium 100 Mg Cap) 100 mg PO BID PRN PRN Reason: Constipation Fentanyl (Fentanyl 100 Mcg/2 Ml Sdv) 50 mcg IM ONETIME ONE Stop: 04/10/21 16:06 Last Admin: 04/10/21 16:12 Dose: 50 mcg Documented by: Fentanyl (Fentanyl 100 Mcg/2 Ml Sdv) 50 mcg IVPUSH ONETIME ONE Stop: 04/10/21 17:39 Last Admin: 04/10/21 17:54 Dose: 50 mcg Documented by: Fentanyl (Fentanyl 250 Mcg/5 Ml Sdv) Confirm Administered Dose 250 mcg .ROUTE .STK-MED ONE Stop: 04/11/21 07:36 Glycopyrrolate (Glycopyrrolate 0.2 Mg/Ml 5 Ml Mdv) Confirm Administered Dose 1 mg .ROUTE .STK-MED ONE Stop: 04/11/21 07:37 Hydromorphone HCl (Hydromorphone 1 Mg/Ml Syringe) 1 mg IVPUSH ONETIME ONE Stop: 04/10/21 18:36 Last Admin: 04/10/21 18:52 Dose: 1 mg Documented by: Hydromorphone HCl (Hydromorphone/Normal Saline 15 Mg/30 Ml [employer]) 0 mg IV ASD IRECTED PRN; Protocol PRN Reason: Pain Last Admin: 04/10/21 21:16 Dose: 15 mg Documented by: Cefazolin Sodium/Dextrose 1 gm (/ Premix) 50 mls @ 100 mls/hr IV ONETIME ONE Stop: 04/11/21 07:59 Last Admin: 04/11/21 07:58 Dose: 100 mls/hr Documented by: Potassium Chloride 20 meq/ (Premix) 100 mls @ 50 mls/hr IV ONETIME ONE Stop: 04/10/21 20:19 Last Admin: 04/10/21 18:54 Dose: 50 mls/hr Documented by: Sodium Chloride (Normal Saline) 1,000 mls @ 100 mls/hr IV ASDIRECTED LAYO Last Admin: 04/11/21 07:00 Dose: 100 mls/hr Documented by: Sodium Chloride (Normal Saline) 1,000 mls @ 125 mls/hr IV ASDIRECTED LAYO Last Infusion: 04/12/21 02:00 Dose: 25 mls/hr Documented by: Cefazolin Sodium/Dextrose 1 gm (/ Premix) 50 mls @ 100 mls/hr IV Q8H [facility] Stop: 04/11/21 23:29 Last Admin: 04/11/21 22:18 Dose: 100 mls/hr Documented by: Lidocaine HCl (Lidocaine 1% 5 Ml Sdv) 5 ml INJECT ONETIME ONE Stop: 04/10/21 18:36 Last Admin: 04/10/21 18:55 Dose: 5 ml Documented by: Naloxone HCl (Naloxone 0.4 Mg/Ml Sdv) 0.4 mg IVPUSH Q2M PRN PRN Reason: Respiratory Distress Neostigmine Methylsulfate (Neostigmine Methylsulfate 1 Mg/Ml 5 Ml Syringe) Confirm Administered Dose 5 mg .ROUTE .STK-MED ONE Stop: 04/11/21 07:37 Ondansetron HCl (Ondansetron 4 Mg/2 Ml Sdv) Confirm Administered Dose 4 mg .ROUTE .STK-MED ONE Stop: 04/10/21 19:09 Last Admin: 04/11/21 01:15 Dose: Not Given Documented by: Ondansetron HCl (Ondansetron 4 Mg/2 Ml Sdv) Confirm Administered Dose 4 mg .ROUTE .STK-MED ONE Stop: 04/11/21 07:37 Oxycodone HCl (Oxycodone 5 Mg Tab) 5 mg PO Q4H PRN PRN Reason: Pain (moderate 4-6) Last Admin: 04/11/21 07:23 Dose: 5 mg Documented by: Potassium Chloride (Potassium Chloride 20 Meq Tab.Er) 40 meq PO ONETIME ONE Stop: 04/10/21 18:21 Last Admin: 04/10/21 18:30 Dose: 40 meq Documented by: Potassium Chloride (Potassium Chloride 20 Meq Tab.Er) 40 meq PO ONETIME ONE Stop: 04/11/21 12:16 Last Admin: 04/11/21 12:53 Dose: 40 meq Documented by: Propofol (Propofol 200 Mg/20 Ml Sdv) Confirm Administered Dose 200 mg .ROUTE .STK-MED ONE Stop: 04/11/21 07:37 Rocuronium [place] (Rocuronium 50 Mg/5 Ml Vial) Confirm Administered Dose 50 mg .ROUTE .STK-MED ONE Stop: 04/11/21 07:37 Succinylcholine Chloride (Succinylcholine 200 Mg/10 Ml Mdv) Confirm Administered Dose 200 mg .ROUTE .STK-MED ONE Stop: 04/11/21 07:37 Sugammadex Sodium (Sugammadex Sodium 200 Mg/2 Ml Vial) Confirm Administered Dose 200 mg .ROUTE .STK-MED ONE Stop: 04/11/21 09:18 - Exam Quality Assessment: Supplemental Oxygen Urinary Catheter Total Time: 1Days 14Hours General: Alert, Oriented, Cooperative, No Acute Distress Lungs: Normal Respiratory Effort. No: Crackles, Wheezing Cardiovascular: Regular Rate, Regular Rhythm GI/Abdominal Exam: Soft, No Distention Extremities: No Pedal Edema. No: Increased Warmth Skin: Warm, Dry Wound/Incisions: Dressing Dry and Intact, No Drainage Psy/Mental Status: Alert, Normal Affect - Patient Data Lab Results Last 24 hrs: Laboratory Results - last 24 hr 04/12/21 04/12/21 Range/Units 04:25 04:25 WBC 15.2 H (4.5-11.0) K/uL RBC 4.08 (3.30-5.50) M/uL Hgb 13.1 (12.0-15.0) g/dL Hct 38.1 (36.0-48.0) % MCV 93 (80-98) fL MCH 32 H (27-31) pg MCHC 34 (32-36) % Plt Count 253 (150-400) K/uL Sodium 134 L (140-148) mmol/L Potassium 4.0 (3.6-5.2) mmol/L Chloride 100 (100-108) mmol/L Carbon Dioxide 26 (21-32) mmol/L Anion Gap 12.0 (5.0-14.0) mmol/L BUN 15 (7-18) mg/dL Creatinine 0.8 (0.6-1.0) mg/dL Est Cr Clr Drug Dosing 56.58 mL/min Estimated GFR (MDRD) > 60 (>60) Glucose 110 H (74-106) mg/dL Calcium 8.3 L (8.5-10.1) mg/dL Result Diagrams: 04/12/21 04:25 04/12/21 04:25 Cosme Results Last 24 hrs: Microbiology 04/11/21 09:14 Urine Culture - Preliminary Urine, Catheterized Sepsis Event Note - Evaluation Sepsis Screening Result: Sepsis Risk - Focused Exam Vital Signs: Vital Signs Temp Pulse Resp BP Pulse Ox 04/12/21 07:18 36.6 C 96 18 156/76 H 98 04/12/21 03:45 36.6 C 97 16 179/81 H 97 04/11/21 22:14 36.6 C 79 18 168/84 H 97 - Problem List Review Problem List Initiated/Reviewed/Updated: Yes - My Orders Last 24 Hours: My Active Orders 04/11/21 09:14 CULTURE URINE [RM] Routine 04/12/21 08:00 cefTRIAXone [Rocephin] 1 gm Sodium Chloride 0.9% [Normal Saline AdvBag] 50 ml IV Q24H 04/12/21 10:11 Convert IV to Saline Lock [OM.PC] Routine 04/12/21 17:45 Insert Urinary Catheter [OM.PC] Q24H 04/13/21 05:00 CBC W/O DIFF,HEMOGRAM [HEME] Timed (1) - Plan Plan:: ASSESSMENT AND PLAN - Intertrochanteric fracture of left hip-status post surgical treatment with IM nailing on 04/11. Pain well controlled. No significant issues postoperatively. -Saline lock IV -Symptomatic management of pain and nausea -Morrissey catheter for strict intake and output monitoring, anticipate removal tomorrow -consult to PT and OT, weightbearing as tolerated -Son Steven would like to be called with updates [phone] Hypokalemia-improved with supplementation. -Supplement this evening -Recheck in the morning Elevated blood pressures-history of hypertension but not currently on meds and blood pressure has been normal as an outpatient. Mild elevation since surgery. Plan to continue to monitor and hold off on starting anything at this point. Possible urinary tract infection-urinalysis moderately suggestive of infection and culture is growing a gram-negative vishal. -ceftriaxone -Follow-up urine culture Maintenance issues - - DVT prophylaxis -enoxaparin - GI prophylaxis -Protonix 40 mg daily - Nutrition -regular diet - Morrissey catheter -placed for strict intake and output monitoring CODE STATUS -FULL for surgery then would like to be DNR/DNI Disposition -I would anticipate discharge to [facility] with -they both live there. Marcus Trujillo M.D.
[2021-04-12] MEDS: traMADol 50 MG Tab PO PRN ×2 (12:29→19:37)
[2021-04-12] MEDS: oxyCODONE 5 MG Tab PO PRN ×3 (13:36→22:31)
[2021-04-13] MEDS: Acetaminophen 325 MG Tab PO SCH ×5 (02:18→23:28)
[2021-04-13] MEDS: traMADol 50 MG Tab PO PRN ×3 (02:19→19:25)
[2021-04-13] MEDS: oxyCODONE 5 MG Tab PO PRN (04:23)
--- NOTE | 2021-04-13 08:37 | PCM.SURGPN ---
- General Info Date of Service: 04/13/21 Date of Surgery/Procedure: 04/11/21 POD#: 2 Admission Diagnosis/Problem: Hip fracture requiring operative repair Functional Status: Reports: Pain Controlled, Tolerating Diet, Ambulating (with FWW, x1 assist ), Urinating - Review of Systems General: Denies: Fever, Malaise, Chills Pulmonary: Denies: Shortness of Breath Cardiovascular: Denies: Chest Pain Genitourinary: Denies: Dysuria, Urgency, Retention Musculoskeletal: Reports: Back Pain, Leg Pain (left ), Joint Pain (left hip ) Skin: Reports: Bruising Neurological: Reports: No Symptoms Psychiatric: Reports: No Symptoms - Patient Data Vitals - Most Recent: Last Vital Signs Temp 97.8 F 04/13/21 06:56 Pulse 104 H 04/13/21 06:56 Resp 18 04/13/21 06:56 BP 154/79 H 04/13/21 06:56 Pulse Ox 93 L 04/13/21 06:56 Weight - Most Recent: 187 lb 8 oz I&O - Last 24 Hours: Intake & Output 04/12/21 04/13/21 04/13/21 22:59 06:59 14:59 Output Total 550 375 Balance -550 -375 Lab Results Last 24 Hrs: Laboratory Results - last 24 hr 04/13/21 Range/Units 05:45 WBC 12.8 H (4.5-11.0) K/uL RBC 3.64 (3.30-5.50) M/uL Hgb 11.7 L (12.0-15.0) g/dL Hct 34.0 L (36.0-48.0) % MCV 93 (80-98) fL MCH 32 H (27-31) pg MCHC 34 (32-36) % Plt Count 262 (150-400) K/uL Cosme Results Last 24 Hrs: Microbiology 04/11/21 09:14 Urine Culture - Final Urine, Catheterized Escherichia Coli Med Orders - Current: Current Medications Acetaminophen (Acetaminophen 325 Mg Tab) 650 mg PO Q6H [facility] Last Admin: 04/13/21 05:59 Dose: 650 mg Documented by: Albuterol (Albuterol 0.083% 2.5 Mg/3 Ml Neb Soln) 2.5 mg NEB Q4H PRN PRN Reason: Shortness Of Breath/wheezing Bandage/Support Products (Nozin Nasal Brazing Machine Setter) 1 applic NASBOTH BID [facility] Stop: 04/18/21 21:01 Last Admin: 04/12/21 20:19 Dose: 1 applic Documented by: Bisacodyl (Bisacodyl 5 Mg Tab) 5 mg PO DAILY PRN PRN Reason: Constipation Docusate Sodium (Docusate Sodium 100 Mg Cap) 100 mg PO BID [facility] Last Admin: 04/12/21 20:19 Dose: 100 mg Documented by: Enoxaparin Sodium (Enoxaparin 30 Mg/0.3 Ml Syringe) 30 mg SUBCUT DAILY [facility] Last Admin: 04/12/21 09:02 Dose: 30 mg Documented by: Ceftriaxone Sodium 1 gm/ (Sodium Chloride) 50 mls @ 100 mls/hr IV Q24H [facility] Last Admin: 04/12/21 07:46 Dose: 100 mls/hr Documented by: Lorazepam (Lorazepam 2 Mg/Ml Sdv) 1 mg IV Q6H PRN PRN Reason: Nausea/Vomiting Magnesium Hydroxide (Magnesium Hydroxide 400 Mg/5 Ml Susp 30 Ml Cup) 30 ml PO Q6H PRN PRN Reason: Stool Softener Magnesium Oxide (Magnesium Oxide 400 Mg Tab) 400 mg PO DAILY [facility] Last Admin: 04/12/21 09:02 Dose: 400 mg Documented by: Morphine Sulfate (Morphine 2 Mg/Ml Syringe) 1 mg IV Q1H PRN PRN Reason: Breakthrough Pain I-Throid 6.5 Mg (Ptom) 0 mg PO DAILY [facility] Last Admin: 04/12/21 09:03 Dose: Not Given Documented by: Ondansetron HCl (Ondansetron 4 Mg/2 Ml Sdv) 4 mg IVPUSH Q4H PRN PRN Reason: Nausea/Vomiting Last Admin: 04/10/21 19:12 Dose: 4 mg Documented by: Ondansetron HCl (Ondansetron 4 Mg Tab.Dis) 4 mg PO Q6H PRN PRN Reason: Nausea able to take PO Oxycodone HCl (Oxycodone 5 Mg Tab) 5 - 10 mg PO Q4H PRN PRN Reason: Pain Last Admin: 04/13/21 04:23 Dose: 5 mg Documented by: Tramadol HCl (Tramadol 50 Mg Tab) 50 mg PO Q6H PRN PRN Reason: Pain (mild 1-3) Last Admin: 04/13/21 02:19 Dose: 50 mg Documented by: Discontinued Medications Acetaminophen (Acetaminophen 325 Mg Tab) 650 mg PO Q4H PRN PRN Reason: Pain (Mild 1-3)/fever Last Admin: 04/11/21 06:28 Dose: 650 mg Documented by: Bupivacaine HCl/Epinephrine Bitart (Bupivacaine 0.5%/Epinephrine 1:200,000 30 Ml Sdv) 30 ml INJECT .STK-MED ONE Stop: 04/11/21 09:15 Last Admin: 04/11/21 09:14 Dose: 30 ml Documented by: Dexamethasone (Dexamethasone 4 Mg/Ml Sdv) Confirm Administered Dose 4 mg .ROUTE .STK-MED ONE Stop: 04/11/21 07:37 Docusate Sodium (Docusate Sodium 100 Mg Cap) 100 mg PO BID PRN PRN Reason: Constipation Fentanyl (Fentanyl 100 Mcg/2 Ml Sdv) 50 mcg IM ONETIME ONE Stop: 04/10/21 16:06 Last Admin: 04/10/21 16:12 Dose: 50 mcg Documented by: Fentanyl (Fentanyl 100 Mcg/2 Ml Sdv) 50 mcg IVPUSH ONETIME ONE Stop: 04/10/21 17:39 Last Admin: 04/10/21 17:54 Dose: 50 mcg Documented by: Fentanyl (Fentanyl 250 Mcg/5 Ml Sdv) Confirm Administered Dose 250 mcg .ROUTE .STK-MED ONE Stop: 04/11/21 07:36 Glycopyrrolate (Glycopyrrolate 0.2 Mg/Ml 5 Ml Mdv) Confirm Administered Dose 1 mg .ROUTE .STK-MED ONE Stop: 04/11/21 07:37 Hydromorphone HCl (Hydromorphone 1 Mg/Ml Syringe) 1 mg IVPUSH ONETIME ONE Stop: 04/10/21 18:36 Last Admin: 04/10/21 18:52 Dose: 1 mg Documented by: Hydromorphone HCl (Hydromorphone/Normal Saline 15 Mg/30 Ml Chief [employer]) 0 mg IV ASDIRECTED PRN; Protocol PRN Reason: Pain Last Admin: 04/10/21 21:16 Dose: 15 mg Documented by: Cefazolin Sodium/Dextrose 1 gm (/ Premix) 50 mls @ 100 mls/hr IV ONETIME ONE Stop: 04/11/21 07:59 Last Admin: 04/11/21 07:58 Dose: 100 mls/hr Documented by: Potassium Chloride 20 meq/ (Premix) 100 mls @ 50 mls/hr IV ONETIME ONE Stop: 04/10/21 20:19 Last Admin: 04/10/21 18:54 Dose: 50 mls/hr Documented by: Sodium Chloride (Normal Saline) 1,000 mls @ 100 mls/hr IV ASDIRECTED [facility] Last Admin: 04/11/21 07:00 Dose: 100 mls/hr Documented by: Sodium Chloride (Normal Saline) 1,000 mls @ 125 mls/hr IV ASDIRECTED [facility] Last Infusion: 04/12/21 02:00 Dose: 25 mls/hr Documented by: Cefazolin Sodium/Dextrose 1 gm (/ Premix) 50 mls @ 100 mls/hr IV Q8H [facility] Stop: 04/11/21 23:29 Last Admin: 04/11/21 22:18 Dose: 100 mls/hr Documented by: Lidocaine HCl (Lidocaine 1% 5 Ml Sdv) 5 ml INJECT ONETIME ONE Stop: 04/10/21 18:36 Last Admin: 04/10/21 18:55 Dose: 5 ml Documented by: Naloxone HCl (Naloxone 0.4 Mg/Ml Sdv) 0.4 mg IVPUSH Q2M PRN PRN Reason: Respiratory Distress Neostigmine Methylsulfate (Neostigmine Methylsulfate 1 Mg/Ml 5 Ml Syringe) Confirm Administered Dose 5 mg .ROUTE .STK-MED ONE Stop: 04/11/21 07:37 Ondansetron HCl (Ondansetron 4 Mg/2 Ml Sdv) Confirm Administered Dose 4 mg .ROUTE .STK-MED ONE Stop: 04/10/21 19:09 Last Admin: 04/11/21 01:15 Dose: Not Given Documented by: Ondansetron HCl (Ondansetron 4 Mg/2 Ml Sdv) Confirm Administered Dose 4 mg .ROUTE .STK-MED ONE Stop: 04/11/21 07:37 Oxycodone HCl (Oxycodone 5 Mg Tab) 5 mg PO Q4H PRN PRN Reason: Pain (moderate 4-6) Last Admin: 04/11/21 07:23 Dose: 5 mg Documented by: Potassium Chloride (Potassium Chloride 20 Meq Tab.Er) 40 meq PO ONETIME ONE Stop: 04/10/21 18:21 Last Admin: 04/10/21 18:30 Dose: 40 meq Documented by: Potassium Chloride (Potassium Chloride 20 Meq Tab.Er) 40 meq PO ONETIME ONE Stop: 04/11/21 12:16 Last Admin: 04/11/21 12:53 Dose: 40 meq Documented by: Propofol (Propofol 200 Mg/20 Ml Sdv) Confirm Administered Dose 200 mg .ROUTE .STK-MED ONE Stop: 04/11/21 07:37 Rocuronium [place] (Rocuronium 50 Mg/5 Ml Vial) Confirm Administered Dose 50 mg .ROUTE .STK-MED ONE Stop: 04/11/21 07:37 Succinylcholine Chloride (Succinylcholine 200 Mg/10 Ml Mdv) Confirm Administered Dose 200 mg .ROUTE .STK-MED ONE Stop: 04/11/21 07:37 Sugammadex Sodium (Sugammadex Sodium 200 Mg/2 Ml Vial) Confirm Administered Dose 200 mg .ROUTE .STK-MED ONE Stop: 04/11/21 09:18 - Exam Wound/Incisions: Healing Well, Dressing Dry and Intact, No Drainage Quality Assessment: DVT Prophylaxis General: Alert, Oriented, Cooperative, No Acute Distress Extremities: Normal Capillary Refill, Pedal Edema (very mild, LLE ), Leg Pain (left ), Limited Range of Motion (due to postoperative pain in L hip ). No: Zainab's Sign Skin: Dry, Intact, Ecchymosis Neurological: No New Focal Deficit Psy/Mental Status: Alert, Normal Affect, Normal Mood Sepsis Event Note - Evaluation Sepsis Screening Result: No Definite Risk - Focused Exam Vital Signs: Vital Signs Temp Pulse Resp BP Pulse Ox 04/13/21 06:56 97.8 F 104 H 18 154/79 H 93 L 04/13/21 02:28 97.8 F 18 175/89 H 95 04/12/21 22:44 98.2 F 84 16 175/85 H 96 - Problem List & Annotations (1) Status post hip surgery SNOMED Code(s): 579704932, 207034852 Code(s): Z98.890 - OTHER SPECIFIED POSTPROCEDURAL STATES Status: Acute Current Visit: Yes Annotation/Comment:: left closed reduction and intramedullary fixation (TFN) DOS: 04/11/21 (2) Postoperative anemia SNOMED Code(s): 962464499, 971074232 Code(s): D64.9 - ANEMIA, UNSPECIFIED Status: Acute Current Visit: Yes - Problem List Review Problem List Initiated/Reviewed/Updated: Yes - My Orders Last 24 Hours: Active Orders 24 hr Category Date Time Status Insert Urinary Catheter [OM.PC] Q24H Care 04/12/21 17:45 Ordered *I-Throid Med 04/12/21 09:00 Active 0 mg PO DAILY Enoxaparin [Lovenox] Med 04/12/21 09:00 Active 30 mg SUBCUT DAILY Magnesium Oxide Med 04/12/21 09:00 Active 400 mg PO DAILY cefTRIAXone [Rocephin] 1 gm Med 04/12/21 08:00 Active Sodium Chloride 0.9% [Normal Saline AdvBag] 50 ml IV Q24H oxyCODONE Med 04/12/21 08:09 Active 5 - 10 mg PO Q4H PRN Convert IV to Saline Lock [OM.PC] Routine Oth 04/12/21 10:11 Ordered Medication Orders Acetaminophen (Acetaminophen 325 Mg Tab) 650 mg PO Q6H [facility] Last Admin: 04/13/21 05:59 Dose: 650 mg Documented by: Admin: 04/13/21 02:18 Dose: 650 mg Documented by: Admin: 04/12/21 17:01 Dose: 650 mg Documented by: Admin: 04/12/21 11:57 Dose: 650 mg Documented by: Admin: 04/12/21 07:46 Dose: 650 mg Documented by: Admin: 04/11/21 23:39 Dose: Not Given Documented by: Admin: 04/11/21 17:39 Dose: 650 mg Documented by: Admin: 04/11/21 11:50 Dose: 650 mg Documented by: LAURA Albuterol (Albuterol 0.083% 2.5 Mg/3 Ml Neb Soln) 2.5 mg NEB Q4H PRN PRN Reason: Shortness Of Breath/wheezing Bandage/Support Products (Nozin Nasal Brazing Machine Setter) 1 applic NASBOTH BID [facility] Stop: 04/18/21 21:01 Last Admin: 04/12/21 20:19 Dose: 1 applic Documented by: Admin: 04/12/21 09:03 Dose: 1 applic Documented by: Admin: 04/11/21 20:32 Dose: Not Given Documented by: JACLYN Bisacodyl (Bisacodyl 5 Mg Tab) 5 mg PO DAILY PRN PRN Reason: Constipation Docusate Sodium (Docusate Sodium 100 Mg Cap) 100 mg PO BID [facility] Last Admin: 04/12/21 20:19 Dose: 100 mg Documented by: Admin: 04/12/21 09:02 Dose: 100 mg Documented by: Admin: 04/11/21 20:27 Dose: 100 mg Documented by: JACLYN Enoxaparin Sodium (Enoxaparin 30 Mg/0.3 Ml Syringe) 30 mg SUBCUT DAILY [facility] Last Admin: 04/12/21 09:02 Dose: 30 mg Documented by: RENE Ceftriaxone Sodium 1 gm/ (Sodium Chloride) 50 mls @ 100 mls/hr IV Q24H [facility] Last Admin: 04/12/21 07:46 Dose: 100 mls/hr Documented by: RENE Lorazepam (Lorazepam 2 Mg/Ml Sdv) 1 mg IV Q6H PRN PRN Reason: Nausea/Vomiting Magnesium Hydroxide (Magnesium Hydroxide 400 Mg/5 Ml Susp 30 Ml Cup) 30 ml PO Q6H PRN PRN Reason: Stool Softener Magnesium Oxide (Magnesium Oxide 400 Mg Tab) 400 mg PO DAILY [facility] Last Admin: 04/12/21 09:02 Dose: 400 mg Documented by: RENE Morphine Sulfate (Morphine 2 Mg/Ml Syringe) 1 mg IV Q1H PRN PRN Reason: Breakthrough Pain I-Throid 6.5 Mg (Ptom) 0 mg PO DAILY [facility] Last Admin: 04/12/21 09:03 Dose: Not Given Documented by: RENE Ondansetron HCl (Ondansetron 4 Mg/2 Ml Sdv) 4 mg IVPUSH Q4H PRN PRN Reason: Nausea/Vomiting Last Admin: 04/10/21 19:12 Dose: 4 mg Documented by: GILBERT Ondansetron HCl (Ondansetron 4 Mg Tab.Dis) 4 mg PO Q6H PRN PRN Reason: Nausea able to take PO Oxycodone HCl (Oxycodone 5 Mg Tab) 5 - 10 mg PO Q4H PRN PRN Reason: Pain Last Admin: 04/13/21 04:23 Dose: 5 mg Documented by: Admin: 04/12/21 22:31 Dose: 10 mg Documented by: Admin: 04/12/21 17:37 Dose: 10 mg Documented by: Admin: 04/12/21 13:36 Dose: 5 mg Documented by: RENE Tramadol HCl (Tramadol 50 Mg Tab) 50 mg PO Q6H PRN PRN Reason: Pain (mild 1-3) Last Admin: 04/13/21 02:19 Dose: 50 mg Documented by: Admin: 04/12/21 19:37 Dose: 50 mg Documented by: Admin: 04/12/21 12:29 Dose: 50 mg Documented by: RENE - Assessment Assessment (Free Text/Narrative):: Patient is a very pleasant 80-year-old female, status post left closed reduction and intramedullary fixation of an intertrochanteric fracture, postop day #2. Patient had no acute events overnight. Patient has remained hemodynamically stable thus far, with the exception of continued hypertensive blood pressure readings. Patient has required 1-2L oxygen while sleeping and with physical therapy to maintain oxygen saturation >90%. On room air this morning at rest, denied dyspnea. Postoperative day #2 hemoglobin declined to 11.7. Patient has been asymptomatic with this; denied lightheadedness or dizziness with transitional changes or upon ambulation. Urine culture showed growth of E. coli. Morrissey catheter was discontinued yesterday evening. Patient has denied dysuria, urgency, or incontinence. Patient has not yet had a bowel movement since prior to surgery. Patient reports some diminished appetite. No nausea or emesis. Nursing staff reports mild confusion following administration of oxycodone. Have been utilizing scheduled Tylenol and prn Tramadol; adequate pain control with this regimen. Does have increased discomfort with weightbearing on the left lower extremity. Denied paresthesias to the left lower extremity. Also denied calf pain. Has been compliant with physical therapy services and ambulating within the room with a FWW x1 assist. Transfers from bed to chair with a moderate x1 assist. Plan: * Communication with family: Brittaney (daughter) is staying with patients and [facility]. Would like to be contacted with any changes. Brittaney's phone #: [phone]. * Hospitalist to kindly continue medical management of the patient. * Continue with every 4 hours vital monitoring assessment. If blood pressure remains elevated, may need to consider antihypertensive medication. * Asymptomatic and stable with postoperative anemia at this time; continue to monitor for symptoms and will re-check CBC if patient becomes symptomatic. * Morrissey catheter removed yesterday evening. Urine culture showed E.Coli growth, will defer to hospitalist on any antibiotic adjustments. * IV maintenance fluids have been discontinued. * Functional mobility of LLE: * Patient to continue with physical therapy services daily while in the hospital. * May continue to weight-bear as tolerated on the left lower extremity. * Would benefit from leg teaching associate to assist with transferring leg into bed. * DVT/VTE prophylaxis: * Chemical- 30 mg subcutaneous Lovenox daily. * Mechanical- bilateral LE SCDs. * Continue with current pain control regimen. * Dressing change performed POD#2 by orthopedic provider. May remove dressing on left hip and allow patient to shower as desired. Okay to let shower water run over incision, no submerging incisions in water. * Discharge: Anticipate returning to [facility] at time of discharge when patient is medically stable and functional mobility improves.
[2021-04-13] MEDS: [UNRECOGNIZED DRUG - OTHER] PO SCH (08:40)
[2021-04-13] MEDS: Enoxaparin 30 MG/0.3 ML Syringe SUBCUT SCH (09:06)
[2021-04-13] MEDS: Magnesium Oxide 400 MG Tab PO SCH (09:06)
[2021-04-13] MEDS: Docusate Sodium 100 MG Cap PO SCH ×2 (09:06→21:04)
[2021-04-13] MEDS: Nozin Nasal Sanitizer NASBOTH SCH ×2 (09:06→21:03)
[2021-04-13] MEDS: cefTRIAXone 1 GM in Sodium Chloride 0.9% 50 ML IV SCH (09:10)
--- NOTE | 2021-04-13 09:50 | PCM.PN ---
- General Info Date of Service: 04/13/21 Subjective Update: No acute events overnight. Patient reports her pain is well controlled but she does have some discomfort in the left hip. No shortness of breath, nausea or abdominal pain. No confusion. Vital signs have been stable other than a mild to moderate elevation of her blood pressure. Functional Status: Reports: Pain Controlled, Tolerating Diet - Review of Systems Musculoskeletal: Reports: Joint Pain (left hip pain ) - Patient Data Vitals - Most Recent: Last Vital Signs Temp 36.6 C 04/13/21 06:56 Pulse 104 H 04/13/21 06:56 Resp 18 04/13/21 06:56 BP 154/79 H 04/13/21 06:56 Pulse Ox 93 L 04/13/21 06:56 Weight - Most Recent: 85.049 kg I&O - Last 24 Hours: Intake & Output 04/12/21 04/13/21 04/13/21 22:59 06:59 14:59 Output Total 550 375 50 Balance -550 -375 -50 Lab Results Last 24 Hours: Laboratory Results - last 24 hr 04/13/21 Range/Units 05:45 WBC 12.8 H (4.5-11.0) K/uL RBC 3.64 (3.30-5.50) M/uL Hgb 11.7 L (12.0-15.0) g/dL Hct 34.0 L (36.0-48.0) % MCV 93 (80-98) fL MCH 32 H (27-31) pg MCHC 34 (32-36) % Plt Count 262 (150-400) K/uL Cosme Results Last 24 Hours: Microbiology 04/11/21 09:14 Urine Culture - Final Urine, Catheterized Escherichia Coli Med Orders - Current: Current Medications Acetaminophen (Acetaminophen 325 Mg Tab) 650 mg PO Q6H [facility] Last Admin: 04/13/21 05:59 Dose: 650 mg Documented by: Albuterol (Albuterol 0.083% 2.5 Mg/3 Ml Neb Soln) 2.5 mg NEB Q4H PRN PRN Reason: Shortness Of Breath/wheezing Bandage/Support Products (Nozin Nasal Installation Coordinator) 1 applic NASBOTH BID LAYO Stop: 04/18/21 21:01 Last Admin: 04/13/21 09:06 Dose: 1 applic Documented by: Bisacodyl (Bisacodyl 5 Mg Tab) 5 mg PO DAILY PRN PRN Reason: Constipation Docusate Sodium (Docusate Sodium 100 Mg Cap) 100 mg PO BID [facility] Last Admin: 04/13/21 09:06 Dose: 100 mg Documented by: Enoxaparin Sodium (Enoxaparin 30 Mg/0.3 Ml Syringe) 30 mg SUBCUT DAILY [facility] Last Admin: 04/13/21 09:06 Dose: 30 mg Documented by: Lorazepam (Lorazepam 2 Mg/Ml Sdv) 1 mg IV Q6H PRN PRN Reason: Nausea/Vomiting Magnesium Hydroxide (Magnesium Hydroxide 400 Mg/5 Ml Susp 30 Ml Cup) 30 ml PO Q6H PRN PRN Reason: Stool Softener Magnesium Oxide (Magnesium Oxide 400 Mg Tab) 400 mg PO DAILY [facility] Last Admin: 04/13/21 09:06 Dose: 400 mg Documented by: Morphine Sulfate (Morphine 2 Mg/Ml Syringe) 1 mg IV Q1H PRN PRN Reason: Breakthrough Pain I-Throid 6.5 Mg (Ptom) 0 mg PO DAILY [facility] Last Admin: 04/13/21 08:40 Dose: Not Given Documented by: Ondansetron HCl (Ondansetron 4 Mg/2 Ml Sdv) 4 mg IVPUSH Q4H PRN PRN Reason: Nausea/Vomiting Last Admin: 04/10/21 19:12 Dose: 4 mg Documented by: Ondansetron HCl (Ondansetron 4 Mg Tab.Dis) 4 mg PO Q6H PRN PRN Reason: Nausea able to take PO Oxycodone HCl (Oxycodone 5 Mg Tab) 5 - 10 mg PO Q4H PRN PRN Reason: Pain Last Admin: 04/13/21 04:23 Dose: 5 mg Documented by: Tramadol HCl (Tramadol 50 Mg Tab) 50 mg PO Q6H PRN PRN Reason: Pain (mild 1-3) Last Admin: 04/13/21 09:06 Dose: 50 mg Documented by: Discontinued Medications Acetaminophen (Acetaminophen 325 Mg Tab) 650 mg PO Q4H PRN PRN Reason: Pain (Mild 1-3)/fever Last Admin: 04/11/21 06:28 Dose: 650 mg Documented by: Bupivacaine HCl/Epinephrine Bitart (Bupivacaine 0.5%/Epinephrine 1:200,000 30 Ml Sdv) 30 ml INJECT .STK-MED ONE Stop: 04/11/21 09:15 Last Admin: 04/11/21 09:14 Dose: 30 ml Documented by: Dexamethasone (Dexamethasone 4 Mg/Ml Sdv) Confirm Administered Dose 4 mg .ROUTE .STK-MED ONE Stop: 04/11/21 07:37 Docusate Sodium (Docusate Sodium 100 Mg Cap) 100 mg PO BID PRN PRN Reason: Constipation Fentanyl (Fentanyl 100 Mcg/2 Ml Sdv) 50 mcg IM ONETIME ONE Stop: 04/10/21 16:06 Last Admin: 04/10/21 16:12 Dose: 50 mcg Documented by: Fentanyl (Fentanyl 100 Mcg/2 Ml Sdv) 50 mcg IVPUSH ONETIME ONE Stop: 04/10/21 17:39 Last Admin: 04/10/21 17:54 Dose: 50 mcg Documented by: Fentanyl (Fentanyl 250 Mcg/5 Ml Sdv) Confirm Administered Dose 250 mcg .ROUTE .STK-MED ONE Stop: 04/11/21 07:36 Glycopyrrolate (Glycopyrrolate 0.2 Mg/Ml 5 Ml Mdv) Confirm Administered Dose 1 mg .ROUTE .STK-MED ONE Stop: 04/11/21 07:37 Hydromorphone HCl (Hydromorphone 1 Mg/Ml Syringe) 1 mg IVPUSH ONETIME ONE Stop: 04/10/21 18:36 Last Admin: 04/10/21 18:52 Dose: 1 mg Documented by: Hydromorphone HCl (Hydromorphone/Normal Saline 15 Mg/30 Ml Under Ground [employer]er) 0 mg IV ASDIRECTED PRN; Protocol PRN Reason: Pain Last Admin: 04/10/21 21:16 Dose: 15 mg Documented by: Cefazolin Sodium/Dextrose 1 gm (/ Premix) 50 mls @ 100 mls/hr IV ONETIME ONE Stop: 04/11/21 07:59 Last Admin: 04/11/21 07:58 Dose: 100 mls/hr Documented by: Potassium Chloride 20 meq/ (Premix) 100 mls @ 50 mls/hr IV ONETIME ONE Stop: 04/10/21 20:19 Last Admin: 04/10/21 18:54 Dose: 50 mls/hr Documented by: Sodium Chloride (Normal Saline) 1,000 mls @ 100 mls/hr IV ASDIRECTED [facility] Last Admin: 04/11/21 07:00 Dose: 100 mls/hr Documented by: Sodium Chloride (Normal Saline) 1,000 mls @ 125 mls/hr IV ASDIRECTED [facility] Last Infusion: 04/12/21 02:00 Dose: 25 mls/hr Documented by: Cefazolin Sodium/Dextrose 1 gm (/ Premix) 50 mls @ 100 mls/hr IV Q8H [facility] Stop: 04/11/21 23:29 Last Admin: 04/11/21 22:18 Dose: 100 mls/hr Documented by: Ceftriaxone Sodium 1 gm/ (Sodium Chloride) 50 mls @ 100 mls/hr IV Q24H [facility] Last Admin: 04/13/21 09:10 Dose: 100 mls/hr Documented by: Lidocaine HCl (Lidocaine 1% 5 Ml Sdv) 5 ml INJECT ONETIME ONE Stop: 04/10/21 18:36 Last Admin: 04/10/21 18:55 Dose: 5 ml Documented by: Naloxone HCl (Naloxone 0.4 Mg/Ml Sdv) 0.4 mg IVPUSH Q2M PRN PRN Reason: Respiratory Distress Neostigmine Methylsulfate (Neostigmine Methylsulfate 1 Mg/Ml 5 Ml Syringe) Confirm Administered Dose 5 mg .ROUTE .STK-MED ONE Stop: 04/11/21 07:37 Ondansetron HCl (Ondansetron 4 Mg/2 Ml Sdv) Confirm Administered Dose 4 mg .ROUTE .STK-MED ONE Stop: 04/10/21 19:09 Last Admin: 04/11/21 01:15 Dose: Not Given Documented by: Ondansetron HCl (Ondansetron 4 Mg/2 Ml Sdv) Confirm Administered Dose 4 mg .ROUTE .STK-MED ONE Stop: 04/11/21 07:37 Oxycodone HCl (Oxycodone 5 Mg Tab) 5 mg PO Q4H PRN PRN Reason: Pain (moderate 4-6) Last Admin: 04/11/21 07:23 Dose: 5 mg Documented by: Potassium Chloride (Potassium Chloride 20 Meq Tab.Er) 40 meq PO ONETIME ONE Stop: 04/10/21 18:21 Last Admin: 04/10/21 18:30 Dose: 40 meq Documented by: Potassium Chloride (Potassium Chloride 20 Meq Tab.Er) 40 meq PO ONETIME ONE Stop: 04/11/21 12:16 Last Admin: 04/11/21 12:53 Dose: 40 meq Documented by: Propofol (Propofol 200 Mg/20 Ml Sdv) Confirm Administered Dose 200 mg .ROUTE .STK-MED ONE Stop: 04/11/21 07:37 Rocuronium Crowder (Rocuronium 50 Mg/5 Ml Vial) Confirm Administered Dose 50 mg .ROUTE .STK-MED ONE Stop: 04/11/21 07:37 Succinylcholine Chloride (Succinylcholine 200 Mg/10 Ml Mdv) Confirm Administered Dose 200 mg .ROUTE .STK-MED ONE Stop: 04/11/21 07:37 Sugammadex Sodium (Sugammadex Sodium 200 Mg/2 Ml Vial) Confirm Administered Dose 200 mg .ROUTE .STK-MED ONE Stop: 04/11/21 09:18 - Exam Quality Assessment: No: Supplemental Oxygen Urinary Catheter Total Time: 1Days 20Hours General: Alert, Oriented, Cooperative, No Acute Distress Lungs: Normal Respiratory Effort GI/Abdominal Exam: Soft, No Distention Extremities: No Pedal Edema Psy/Mental Status: Alert, Normal Affect - Patient Data Lab Results Last 24 hrs: Laboratory Results - last 24 hr 04/13/21 Range/Units 05:45 WBC 12.8 H (4.5-11.0) K/uL RBC 3.64 (3.30-5.50) M/uL Hgb 11.7 L (12.0-15.0) g/dL Hct 34.0 L (36.0-48.0) % MCV 93 (80-98) fL MCH 32 H (27-31) pg MCHC 34 (32-36) % Plt Count 262 (150-400) K/uL Result Diagrams: 04/13/21 05:45 04/12/21 04:25 Cosme Results Last 24 hrs: Microbiology 04/11/21 09:14 Urine Culture - Final Urine, Catheterized Escherichia Coli Sepsis Event Note - Evaluation Sepsis Screening Result: No Definite Risk - Focused Exam Vital Signs: Vital Signs Temp Pulse Resp BP Pulse Ox 04/13/21 06:56 36.6 C 104 H 18 154/79 H 93 L 04/13/21 02:28 36.6 C 18 175/89 H 95 04/12/21 22:44 36.8 C 84 16 175/85 H 96 - Problem List Review Problem List Initiated/Reviewed/Updated: Yes - My Orders Last 24 Hours: My Active Orders 04/12/21 10:11 Convert IV to Saline Lock [OM.PC] Routine 04/14/21 05:00 CBC W/O DIFF,HEMOGRAM [HEME] Timed (1) 04/14/21 09:00 cephALEXin [Keflex] 500 mg PO BID - Plan Plan:: ASSESSMENT AND PLAN - Intertrochanteric fracture of left hip-status post surgical treatment with IM nailing on 04/11. Pain well controlled. No significant issues postoperatively. -Saline lock IV -Symptomatic management of pain and nausea -Physical and Occupational Therapy -Weightbearing as tolerated -Son Steven would like to be called with updates [phone] Hypokalemia-improved with supplementation. -Supplement this evening -Recheck in the morning Elevated blood pressures-history of hypertension but not currently on meds and blood pressure has been normal as an outpatient. Mild to moderate elevation since surgery. Plan to continue to monitor and hold off on starting anything at this point. Will likely defer to outpatient setting. Possible urinary tract infection-urine culture grew out pansensitive E. coli. -ceftriaxone today, transition to cephalexin tomorrow Maintenance issues - - DVT prophylaxis -enoxaparin - GI prophylaxis -Protonix 40 mg daily - Nutrition -regular diet - Morrissey catheter -removed 04/12. Disposition -I would anticipate discharge to [facility] with -they both live there. Her daughter will be here for a while to help with the transition. Marcus Trujillo M.D.
[2021-04-14] MEDS: traMADol 50 MG Tab PO PRN ×4 (03:35→23:02)
[2021-04-14] MEDS: Acetaminophen 325 MG Tab PO SCH ×4 (05:59→23:08)
[2021-04-14] MEDS: Magnesium Hydroxide 400 MG/5 ML Susp 30 ML Cup PO PRN ×2 (07:55→20:21)
[2021-04-14] MEDS: Cephalexin 250 MG Cap PO SCH ×2 (08:02→20:21)
[2021-04-14] MEDS: Nozin Nasal Sanitizer NASBOTH SCH ×2 (08:02→20:21)
[2021-04-14] MEDS: Docusate Sodium 100 MG Cap PO SCH ×2 (08:02→20:21)
[2021-04-14] MEDS: Magnesium Oxide 400 MG Tab PO SCH (08:02)
[2021-04-14] MEDS: [UNRECOGNIZED DRUG - OTHER] PO SCH (08:02)
[2021-04-14] MEDS: Enoxaparin 30 MG/0.3 ML Syringe SUBCUT SCH (08:02)
[2021-04-14] MEDS: Losartan 50 MG Tab PO SCH (09:18)
[2021-04-14] MEDS: oxyCODONE 5 MG Tab PO PRN ×3 (09:18→20:21)
--- NOTE | 2021-04-14 12:39 | PCM.SURGPN ---
- General Info Date of Service: 04/14/21 Date of Surgery/Procedure: 04/11/21 POD#: 3 Admission Diagnosis/Problem: Hip fracture requiring operative repair Functional Status: Reports: Pain Controlled, Tolerating Diet, Ambulating (with FWW, x1 assist ) - Review of Systems General: Denies: Fever, Fatigue, Chills Pulmonary: Denies: Shortness of Breath Cardiovascular: Denies: Chest Pain Gastrointestinal: Denies: Nausea, Vomiting Genitourinary: Denies: Dysuria, Urgency, Incontinence Musculoskeletal: Reports: Leg Pain (left ), Joint Pain (left hip ) Skin: Reports: Bruising Neurological: Reports: No Symptoms Psychiatric: Reports: No Symptoms - Patient Data Vitals - Most Recent: Last Vital Signs Temp 97.8 F 04/14/21 10:46 Pulse 80 04/14/21 10:46 Resp 16 04/14/21 10:46 BP 153/70 H 04/14/21 10:46 Pulse Ox 95 04/14/21 10:46 Weight - Most Recent: 187 lb 8 oz I&O - Last 24 Hours: Intake & Output 04/13/21 04/14/21 04/14/21 22:59 06:59 14:59 Intake Total 180 Output Total 150 550 Balance 30 -550 Lab Results Last 24 Hrs: Laboratory Results - last 24 hr 04/14/21 Range/Units 04:10 WBC 10.6 (4.5-11.0) K/uL RBC 3.73 (3.30-5.50) M/uL Hgb 11.8 L (12.0-15.0) g/dL Hct 34.6 L (36.0-48.0) % MCV 93 (80-98) fL MCH 32 H (27-31) pg MCHC 34 (32-36) % Plt Count 279 (150-400) K/uL Med Orders - Current: Current Medications Acetaminophen (Acetaminophen 325 Mg Tab) 650 mg PO Q6H [facility] Last Admin: 04/14/21 11:53 Dose: 650 mg Documented by: Albuterol (Albuterol 0.083% 2.5 Mg/3 Ml Neb Soln) 2.5 mg NEB Q4H PRN PRN Reason: Shortness Of Breath/wheezing Bandage/Support Products (Nozin Nasal Blending Supervisor) 1 applic NASBOTH BID [facility] Stop: 04/18/21 21:01 Last Admin: 04/14/21 08:02 Dose: 1 applic Documented by: Bisacodyl (Bisacodyl 5 Mg Tab) 5 mg PO DAILY PRN PRN Reason: Constipation Cephalexin (Cephalexin 250 Mg Cap) 500 mg PO BID [facility] Stop: 04/15/21 21:01 Last Admin: 04/14/21 08:02 Dose: 500 mg Documented by: Docusate Sodium (Docusate Sodium 100 Mg Cap) 100 mg PO BID [facility] Last Admin: 04/14/21 08:02 Dose: 100 mg Documented by: Enoxaparin Sodium (Enoxaparin 30 Mg/0.3 Ml Syringe) 30 mg SUBCUT DAILY [facility] Last Admin: 04/14/21 08:02 Dose: 30 mg Documented by: Lorazepam (Lorazepam 2 Mg/Ml Sdv) 1 mg IV Q6H PRN PRN Reason: Nausea/Vomiting Losartan Potassium (Losartan 50 Mg Tab) 50 mg PO DAILY [facility] Last Admin: 04/14/21 09:18 Dose: 50 mg Documented by: Magnesium Hydroxide (Magnesium Hydroxide 400 Mg/5 Ml Susp 30 Ml Cup) 30 ml PO Q6H PRN PRN Reason: Stool Softener Last Admin: 04/14/21 07:55 Dose: 30 ml Documented by: Magnesium Oxide (Magnesium Oxide 400 Mg Tab) 400 mg PO DAILY [facility] Last Admin: 04/14/21 08:02 Dose: 400 mg Documented by: Morphine Sulfate (Morphine 2 Mg/Ml Syringe) 1 mg IV Q1H PRN PRN Reason: Breakthrough Pain I-Throid 6.5 Mg (Ptom) 0 mg PO DAILY [facility] Last Admin: 04/14/21 08:02 Dose: Not Given Documented by: Ondansetron HCl (Ondansetron 4 Mg/2 Ml Sdv) 4 mg IVPUSH Q4H PRN PRN Reason: Nausea/Vomiting Last Admin: 04/10/21 19:12 Dose: 4 mg Documented by: Ondansetron HCl (Ondansetron 4 Mg Tab.Dis) 4 mg PO Q6H PRN PRN Reason: Nausea able to take PO Oxycodone HCl (Oxycodone 5 Mg Tab) 5 - 10 mg PO Q4H PRN PRN Reason: Pain Last Admin: 04/14/21 09:18 Dose: 5 mg Documented by: Tramadol HCl (Tramadol 50 Mg Tab) 50 mg PO Q6H PRN PRN Reason: Pain (mild 1-3) Last Admin: 04/14/21 07:54 Dose: 50 mg Documented by: Discontinued Medications Acetaminophen (Acetaminophen 325 Mg Tab) 650 mg PO Q4H PRN PRN Reason: Pain (Mild 1-3)/fever Last Admin: 04/11/21 06:28 Dose: 650 mg Documented by: Bupivacaine HCl/Epinephrine Bitart (Bupivacaine 0.5%/Epinephrine 1:200,000 30 Ml Sdv) 30 ml INJECT .STK-MED ONE Stop: 04/11/21 09:15 Last Admin: 04/11/21 09:14 Dose: 30 ml Documented by: Dexamethasone (Dexamethasone 4 Mg/Ml Sdv) Confirm Administered Dose 4 mg .ROUTE .STK-MED ONE Stop: 04/11/21 07:37 Docusate Sodium (Docusate Sodium 100 Mg Cap) 100 mg PO BID PRN PRN Reason: Constipation Fentanyl (Fentanyl 100 Mcg/2 Ml Sdv) 50 mcg IM ONETIME ONE Stop: 04/10/21 16:06 Last Admin: 04/10/21 16:12 Dose: 50 mcg Documented by: Fentanyl (Fentanyl 100 Mcg/2 Ml Sdv) 50 mcg IVPUSH ONETIME ONE Stop: 04/10/21 17:39 Last Admin: 04/10/21 17:54 Dose: 50 mcg Documented by: Fentanyl (Fentanyl 250 Mcg/5 Ml Sdv) Confirm Administered Dose 250 mcg .ROUTE .STK-MED ONE Stop: 04/11/21 07:36 Glycopyrrolate (Glycopyrrolate 0.2 Mg/Ml 5 Ml Mdv) Confirm Administered Dose 1 mg .ROUTE .STK-MED ONE Stop: 04/11/21 07:37 Hydromorphone HCl (Hydromorphone 1 Mg/Ml Syringe) 1 mg IVPUSH ONETIME ONE Stop: 04/10/21 18:36 Last Admin: 04/10/21 18:52 Dose: 1 mg Documented by: Hydromorphone HCl (Hydromorphone/Normal Saline 15 Mg/30 Ml Beating Machine Operator) 0 mg IV ASDIRECTED PRN; Protocol PRN Reason: Pain Last Admin: 04/10/21 21:16 Dose: 15 mg Documented by: Cefazolin Sodium/Dextrose 1 gm (/ Premix) 50 mls @ 100 mls/hr IV ONETIME ONE Stop: 04/11/21 07:59 Last Admin: 04/11/21 07:58 Dose: 100 mls/hr Documented by: Potassium Chloride 20 meq/ (Premix) 100 mls @ 50 mls/hr IV ONETIME ONE Stop: 04/10/21 20:19 Last Admin: 04/10/21 18:54 Dose: 50 mls/hr Documented by: Sodium Chloride (Normal Saline) 1,000 mls @ 100 mls/hr IV ASDIRECTED [facility] Last Admin: 04/11/21 07:00 Dose: 100 mls/hr Documented by: Sodium Chloride (Normal Saline) 1,000 mls @ 125 mls/hr IV ASDIRECTED [facility] Last Infusion: 04/12/21 02:00 Dose: 25 mls/hr Documented by: Cefazolin Sodium/Dextrose 1 gm (/ Premix) 50 mls @ 100 mls/hr IV Q8H [facility] Stop: 04/11/21 23:29 Last Admin: 04/11/21 22:18 Dose: 100 mls/hr Documented by: Ceftriaxone Sodium 1 gm/ (Sodium Chloride) 50 mls @ 100 mls/hr IV Q24H [facility] Last Admin: 04/13/21 09:10 Dose: 100 mls/hr Documented by: Lidocaine HCl (Lidocaine 1% 5 Ml Sdv) 5 ml INJECT ONETIME ONE Stop: 04/10/21 18:36 Last Admin: 04/10/21 18:55 Dose: 5 ml Documented by: Naloxone HCl (Naloxone 0.4 Mg/Ml Sdv) 0.4 mg IVPUSH Q2M PRN PRN Reason: Respiratory Distress Neostigmine Methylsulfate (Neostigmine Methylsulfate 1 Mg/Ml 5 Ml Syringe) Confirm Administered Dose 5 mg .ROUTE .STK-MED ONE Stop: 04/11/21 07:37 Ondansetron HCl (Ondansetron 4 Mg/2 Ml Sdv) Confirm Administered Dose 4 mg .ROUTE .STK-MED ONE Stop: 04/10/21 19:09 Last Admin: 04/11/21 01:15 Dose: Not Given Documented by: Ondansetron HCl (Ondansetron 4 Mg/2 Ml Sdv) Confirm Administered Dose 4 mg .ROUTE .STK-MED ONE Stop: 04/11/21 07:37 Oxycodone HCl (Oxycodone 5 Mg Tab) 5 mg PO Q4H PRN PRN Reason: Pain (moderate 4-6) Last Admin: 04/11/21 07:23 Dose: 5 mg Documented by: Potassium Chloride (Potassium Chloride 20 Meq Tab.Er) 40 meq PO ONETIME ONE Stop: 04/10/21 18:21 Last Admin: 04/10/21 18:30 Dose: 40 meq Documented by: Potassium Chloride (Potassium Chloride 20 Meq Tab.Er) 40 meq PO ONETIME ONE Stop: 04/11/21 12:16 Last Admin: 04/11/21 12:53 Dose: 40 meq Documented by: Propofol (Propofol 200 Mg/20 Ml Sdv) Confirm Administered Dose 200 mg .ROUTE .STK-MED ONE Stop: 04/11/21 07:37 Rocuronium [place] (Rocuronium 50 Mg/5 Ml Vial) Confirm Administered Dose 50 mg .ROUTE .STK-MED ONE Stop: 04/11/21 07:37 Succinylcholine Chloride (Succinylcholine 200 Mg/10 Ml Mdv) Confirm Administered Dose 200 mg .ROUTE .STK-MED ONE Stop: 04/11/21 07:37 Sugammadex Sodium (Sugammadex Sodium 200 Mg/2 Ml Vial) Confirm Administered Dose 200 mg .ROUTE .STK-MED ONE Stop: 04/11/21 09:18 - Exam Wound/Incisions: Healing Well, Dressing Dry and Intact, No Drainage Quality Assessment: DVT Prophylaxis General: Alert, Oriented, Cooperative, No Acute Distress Extremities: No Pedal Edema, Normal Capillary Refill, Leg Pain (left ), Limited Range of Motion, Other (L tibial pulse, 2+. Dorsiflexion: 3+/5. Plantar flexion: 4/5. ). No: Zainab's Sign Skin: Dry, Intact, Ecchymosis Neurological: No New Focal Deficit Psy/Mental Status: Alert, Normal Affect, Normal Mood Sepsis Event Note - Evaluation Sepsis Screening Result: No Definite Risk - Focused Exam Vital Signs: Vital Signs Temp Pulse Resp BP BP BP Pulse Ox 04/14/21 10:46 97.8 F 80 16 153/70 H 95 04/14/21 10:24 97.8 F 93 16 171/64 H 95 04/14/21 09:18 170/70 H 04/14/21 07:00 97.8 F 82 16 170/70 H 95 04/14/21 03:33 97.8 F 100 18 187/89 H 96 - Problem List & Annotations (1) Status post hip surgery SNOMED Code(s): 493638956, 444871626 Code(s): Z98.890 - OTHER SPECIFIED POSTPROCEDURAL STATES Status: Acute Current Visit: Yes Annotation/Comment:: left closed reduction and intramedullary fixation (TFN) DOS: 04/11/21 (2) Postoperative anemia SNOMED Code(s): 543257052, 802935180 Code(s): D64.9 - ANEMIA, UNSPECIFIED Status: Acute Current Visit: Yes - Problem List Review Problem List Initiated/Reviewed/Updated: Yes - My Orders Last 24 Hours: Active Orders 24 hr Category Date Time Status Losartan [Cozaar] Med 04/14/21 09:00 Active 50 mg PO DAILY cephALEXin [Keflex] Med 04/14/21 09:00 Active 500 mg PO BID Medication Orders Acetaminophen (Acetaminophen 325 Mg Tab) 650 mg PO Q6H [facility] Last Admin: 04/14/21 11:53 Dose: 650 mg Documented by: Admin: 04/14/21 05:59 Dose: 650 mg Documented by: Admin: 04/13/21 23:28 Dose: 650 mg Documented by: Admin: 04/13/21 17:16 Dose: 650 mg Documented by: Admin: 04/13/21 11:54 Dose: 650 mg Documented by: Admin: 04/13/21 05:59 Dose: 650 mg Documented by: Admin: 04/13/21 02:18 Dose: 650 mg Documented by: Admin: 04/12/21 17:01 Dose: 650 mg Documented by: Admin: 04/12/21 11:57 Dose: 650 mg Documented by: Admin: 04/12/21 07:46 Dose: 650 mg Documented by: Admin: 04/11/21 23:39 Dose: Not Given Documented by: Admin: 04/11/21 17:39 Dose: 650 mg Documented by: Admin: 04/11/21 11:50 Dose: 650 mg Documented by: LAURA Albuterol (Albuterol 0.083% 2.5 Mg/3 Ml Neb Soln) 2.5 mg NEB Q4H PRN PRN Reason: Shortness Of Breath/wheezing Bandage/Support Products (Nozin Nasal Blending Supervisor) 1 applic NASBOTH BID [facility] Stop: 04/18/21 21:01 Last Admin: 04/14/21 08:02 Dose: 1 applic Documented by: Admin: 04/13/21 21:03 Dose: 1 applic Documented by: Admin: 04/13/21 09:06 Dose: 1 applic Documented by: Admin: 04/12/21 20:19 Dose: 1 applic Documented by: Admin: 04/12/21 09:03 Dose: 1 applic Documented by: Admin: 04/11/21 20:32 Dose: Not Given Documented by: JACLYN Bisacodyl (Bisacodyl 5 Mg Tab) 5 mg PO DAILY PRN PRN Reason: Constipation Cephalexin (Cephalexin 250 Mg Cap) 500 mg PO BID [facility] Stop: 04/15/21 21:01 Last Admin: 04/14/21 08:02 Dose: 500 mg Documented by: ANA Docusate Sodium (Docusate Sodium 100 Mg Cap) 100 mg PO BID [facility] Last Admin: 04/14/21 08:02 Dose: 100 mg Documented by: Admin: 04/13/21 21:04 Dose: 100 mg Documented by: Admin: 04/13/21 09:06 Dose: 100 mg Documented by: Admin: 04/12/21 20:19 Dose: 100 mg Documented by: Admin: 04/12/21 09:02 Dose: 100 mg Documented by: Admin: 04/11/21 20:27 Dose: 100 mg Documented by: JACLYN Enoxaparin Sodium (Enoxaparin 30 Mg/0.3 Ml Syringe) 30 mg SUBCUT DAILY [facility] Last Admin: 04/14/21 08:02 Dose: 30 mg Documented by: Admin: 04/13/21 09:06 Dose: 30 mg Documented by: Admin: 04/12/21 09:02 Dose: 30 mg Documented by: RENE Lorazepam (Lorazepam 2 Mg/Ml Sdv) 1 mg IV Q6H PRN PRN Reason: Nausea/Vomiting Losartan Potassium (Losartan 50 Mg Tab) 50 mg PO DAILY [facility] Last Admin: 04/14/21 09:18 Dose: 50 mg Documented by: ANA Magnesium Hydroxide (Magnesium Hydroxide 400 Mg/5 Ml Susp 30 Ml Cup) 30 ml PO Q6H PRN PRN Reason: Stool Softener Last Admin: 04/14/21 07:55 Dose: 30 ml Documented by: ANA Magnesium Oxide (Magnesium Oxide 400 Mg Tab) 400 mg PO DAILY [facility] Last Admin: 04/14/21 08:02 Dose: 400 mg Documented by: Admin: 04/13/21 09:06 Dose: 400 mg Documented by: Admin: 04/12/21 09:02 Dose: 400 mg Documented by: RENE Morphine Sulfate (Morphine 2 Mg/Ml Syringe) 1 mg IV Q1H PRN PRN Reason: Breakthrough Pain I-Throid 6.5 Mg (Ptom) 0 mg PO DAILY [facility] Last Admin: 04/14/21 08:02 Dose: Not Given Documented by: Admin: 04/13/21 08:40 Dose: Not Given Documented by: Admin: 04/12/21 09:03 Dose: Not Given Documented by: RENE Ondansetron HCl (Ondansetron 4 Mg/2 Ml Sdv) 4 mg IVPUSH Q4H PRN PRN Reason: Nausea/Vomiting Last Admin: 04/10/21 19:12 Dose: 4 mg Documented by: GILBERT Ondansetron HCl (Ondansetron 4 Mg Tab.Dis) 4 mg PO Q6H PRN PRN Reason: Nausea able to take PO Oxycodone HCl (Oxycodone 5 Mg Tab) 5 - 10 mg PO Q4H PRN PRN Reason: Pain Last Admin: 04/14/21 09:18 Dose: 5 mg Documented by: Admin: 04/13/21 04:23 Dose: 5 mg Documented by: Admin: 04/12/21 22:31 Dose: 10 mg Documented by: Admin: 04/12/21 17:37 Dose: 10 mg Documented by: Admin: 04/12/21 13:36 Dose: 5 mg Documented by: RENE Tramadol HCl (Tramadol 50 Mg Tab) 50 mg PO Q6H PRN PRN Reason: Pain (mild 1-3) Last Admin: 04/14/21 07:54 Dose: 50 mg Documented by: Admin: 04/13/21 19:25 Dose: 50 mg Documented by: Admin: 04/13/21 09:06 Dose: 50 mg Documented by: Admin: 04/13/21 02:19 Dose: 50 mg Documented by: Admin: 04/12/21 19:37 Dose: 50 mg Documented by: Admin: 04/12/21 12:29 Dose: 50 mg Documented by: RENE - Assessment Assessment (Free Text/Narrative):: Patient is a very pleasant 80-year-old female, status post left closed reduction and intramedullary fixation of an intertrochanteric fracture, postop day #3. Patient had no acute events overnight. Patient has remained hemodynamically stable thus far, blood pressures remain elevated but improved from the day prior. Has been weaned to room air and maintaining oxygen saturations >90%. CBC this morning shows post-operative anemia stable with HgB at 11.8. Patient has remained asymptomatic with this, denied lightheadedness or dizziness with transfers from bed to chair or with ambulation. White count is also improved, trending down to 10.6 today. Endorsed diminished appetite. Denied nausea or emesis. Pain has been adequately controlled with current regimen. Endorsed increased pain in left hip with weight bearing activities. Denied calf pain nor paresthesias to LLE. Staff has assisted up to chair for all meals. Patient has been compliant with physical therapy services, ambulation abilities remain slow, but improved gait quality. Has ambulated 30 ft with FWW and x1 moderate assist. Does require assistance with transferring left leg into and out of bed. Plan: * Communication with family: Brittaney (daughter) is staying with patients and [facility]. Would like to be contacted with any changes. Brittaney's phone #: [phone]. * Hospitalist to kindly continue medical management of the patient. * Continue with every 4 hours vital monitoring assessment. If blood pressure remains elevated, may need to consider antihypertensive medication. * Asymptomatic and stable with postoperative anemia at this time; continue to monitor for symptoms and will re-check CBC if patient becomes symptomatic. * Antibiotics adjusted from IV to PO for UTI. * IV maintenance fluids have been discontinued. * Functional mobility of LLE: * Patient to continue with physical therapy services daily while in the hospital. * May continue to weight-bear as tolerated on the left lower extremity. * Would benefit from leg benefits specialist recruiter to assist with transferring leg into bed. * DVT/VTE prophylaxis: * Chemical- 30 mg subcutaneous Lovenox daily. * Mechanical- bilateral LE SCDs. * Continue with current pain control regimen. * Dressing change was performed on POD#2 by orthopedic provider. Communication was provided to staff psychiatrist that dressing may be removed and patient may shower if desired. * Discharge: previously anticipated discharge to [facility] assisted living, but due to slow progression with ambulation and limited functional mobility, patient may benefit from SNF placement for additional rehab services. Daughter, Brittaney, would like for mother to go to SNF, as she [place] of [place] and will be unable to assist. environmental planner is aware and looking for placement at local [facility] facilities. Anticipate discharge when medically stable and placement is available.
--- NOTE | 2021-04-14 13:50 | PCM.PN ---
- General Info Date of Service: 04/14/21 Subjective Update: Ms. Grimaldo has remained stable over the last 24 hours. Slowly doing better with ambulation and transfers. [facility] Functional Status: Reports: Tolerating Diet, Ambulating, Urinating - Review of Systems General: Reports: No Symptoms Pulmonary: Reports: No Symptoms Cardiovascular: Reports: No Symptoms Gastrointestinal: Reports: No Symptoms Musculoskeletal: Reports: Joint Pain - Patient Data Vitals - Most Recent: Last Vital Signs Temp 97.8 F 04/14/21 10:46 Pulse 80 04/14/21 10:46 Resp 16 04/14/21 10:46 BP 153/70 H 04/14/21 10:46 Pulse Ox 95 04/14/21 10:46 Weight - Most Recent: 187 lb 8 oz I&O - Last 24 Hours: Intake & Output 04/13/21 04/14/21 04/14/21 22:59 06:59 14:59 Intake Total 180 Output Total 150 550 Balance 30 -550 Lab Results Last 24 Hours: Laboratory Results - last 24 hr 04/14/21 Range/Units 04:10 WBC 10.6 (4.5-11.0) K/uL RBC 3.73 (3.30-5.50) M/uL Hgb 11.8 L (12.0-15.0) g/dL Hct 34.6 L (36.0-48.0) % MCV 93 (80-98) fL MCH 32 H (27-31) pg MCHC 34 (32-36) % Plt Count 279 (150-400) K/uL Med Orders - Current: Current Medications Acetaminophen (Acetaminophen 325 Mg Tab) 650 mg PO Q6H [facility] Last Admin: 04/14/21 11:53 Dose: 650 mg Documented by: Albuterol (Albuterol 0.083% 2.5 Mg/3 Ml Neb Soln) 2.5 mg NEB Q4H PRN PRN Reason: Shortness Of Breath/wheezing Bandage/Support Products (Nozin Nasal [employer]) 1 applic NASBOTH BID [facility] Stop: 04/18/21 21:01 Last Admin: 04/14/21 08:02 Dose: 1 applic Documented by: Bisacodyl (Bisacodyl 5 Mg Tab) 5 mg PO DAILY PRN PRN Reason: Constipation Cephalexin (Cephalexin 250 Mg Cap) 500 mg PO BID [facility] Stop: 04/15/21 21:01 Last Admin: 04/14/21 08:02 Dose: 500 mg Documented by: Docusate Sodium (Docusate Sodium 100 Mg Cap) 100 mg PO BID [facility] Last Admin: 04/14/21 08:02 Dose: 100 mg Documented by: Enoxaparin Sodium (Enoxaparin 30 Mg/0.3 Ml Syringe) 30 mg SUBCUT DAILY [facility] Last Admin: 04/14/21 08:02 Dose: 30 mg Documented by: Lorazepam (Lorazepam 2 Mg/Ml Sdv) 1 mg IV Q6H PRN PRN Reason: Nausea/Vomiting Losartan Potassium (Losartan 50 Mg Tab) 50 mg PO DAILY [facility] Last Admin: 04/14/21 09:18 Dose: 50 mg Documented by: Magnesium Hydroxide (Magnesium Hydroxide 400 Mg/5 Ml Susp 30 Ml Cup) 30 ml PO Q6H PRN PRN Reason: Stool Softener Last Admin: 04/14/21 07:55 Dose: 30 ml Documented by: Magnesium Oxide (Magnesium Oxide 400 Mg Tab) 400 mg PO DAILY [facility] Last Admin: 04/14/21 08:02 Dose: 400 mg Documented by: Morphine Sulfate (Morphine 2 Mg/Ml Syringe) 1 mg IV Q1H PRN PRN Reason: Breakthrough Pain I-Throid 6.5 Mg (Ptom) 0 mg PO DAILY [facility] Last Admin: 04/14/21 08:02 Dose: Not Given Documented by: Ondansetron HCl (Ondansetron 4 Mg/2 Ml Sdv) 4 mg IVPUSH Q4H PRN PRN Reason: Nausea/Vomiting Last Admin: 04/10/21 19:12 Dose: 4 mg Documented by: Ondansetron HCl (Ondansetron 4 Mg Tab.Dis) 4 mg PO Q6H PRN PRN Reason: Nausea able to take PO Oxycodone HCl (Oxycodone 5 Mg Tab) 5 - 10 mg PO Q4H PRN PRN Reason: Pain Last Admin: 04/14/21 13:38 Dose: 5 mg Documented by: Tramadol HCl (Tramadol 50 Mg Tab) 50 mg PO Q6H PRN PRN Reason: Pain (mild 1-3) Last Admin: 04/14/21 07:54 Dose: 50 mg Documented by: Discontinued Medications Acetaminophen (Acetaminophen 325 Mg Tab) 650 mg PO Q4H PRN PRN Reason: Pain (Mild 1-3)/fever Last Admin: 04/11/21 06:28 Dose: 650 mg Documented by: Bupivacaine HCl/Epinephrine Bitart (Bupivacaine 0.5%/Epinephrine 1:200,000 30 Ml Sdv) 30 ml INJECT .STK-MED ONE Stop: 04/11/21 09:15 Last Admin: 04/11/21 09:14 Dose: 30 ml Documented by: Dexamethasone (Dexamethasone 4 Mg/Ml Sdv) Confirm Administered Dose 4 mg .ROUTE .STK-MED ONE Stop: 04/11/21 07:37 Docusate Sodium (Docusate Sodium 100 Mg Cap) 100 mg PO BID PRN PRN Reason: Constipation Fentanyl (Fentanyl 100 Mcg/2 Ml Sdv) 50 mcg IM ONETIME ONE Stop: 04/10/21 16:06 Last Admin: 04/10/21 16:12 Dose: 50 mcg Documented by: Fentanyl (Fentanyl 100 Mcg/2 Ml Sdv) 50 mcg IVPUSH ONETIME ONE Stop: 04/10/21 17:39 Last Admin: 04/10/21 17:54 Dose: 50 mcg Documented by: Fentanyl (Fentanyl 250 Mcg/5 Ml Sdv) Confirm Administered Dose 250 mcg .ROUTE .STK-MED ONE Stop: 04/11/21 07:36 Glycopyrrolate (Glycopyrrolate 0.2 Mg/Ml 5 Ml Mdv) Confirm Administered Dose 1 mg .ROUTE .STK-MED ONE Stop: 04/11/21 07:37 Hydromorphone HCl (Hydromorphone 1 Mg/Ml Syringe) 1 mg IVPUSH ONETIME ONE Stop: 04/10/21 18:36 Last Admin: 04/10/21 18:52 Dose: 1 mg Documented by: Hydromorphone HCl (Hydromorphone/Normal Saline 15 Mg/30 Ml [place]) 0 mg IV ASDIRECTED PRN; Protocol PRN Reason: Pain Last Admin: 04/10/21 21:16 Dose: 15 mg Documented by: Cefazolin Sodium/Dextrose 1 gm (/ Premix) 50 mls @ 100 mls/hr IV ONETIME ONE Stop: 04/11/21 07:59 Last Admin: 04/11/21 07:58 Dose: 100 mls/hr Documented by: Potassium Chloride 20 meq/ (Premix) 100 mls @ 50 mls/hr IV ONETIME ONE Stop: 04/10/21 20:19 Last Admin: 04/10/21 18:54 Dose: 50 mls/hr Documented by: Sodium Chloride (Normal Saline) 1,000 mls @ 100 mls/hr IV ASDIRECTED [facility] Last Admin: 04/11/21 07:00 Dose: 100 mls/hr Documented by: Sodium Chloride (Normal Saline) 1,000 mls @ 125 mls/hr IV ASDIRECTED [facility] Last Infusion: 04/12/21 02:00 Dose: 25 mls/hr Documented by: Cefazolin Sodium/Dextrose 1 gm (/ Premix) 50 mls @ 100 mls/hr IV Q8H [facility] Stop: 04/11/21 23:29 Last Admin: 04/11/21 22:18 Dose: 100 mls/hr Documented by: Ceftriaxone Sodium 1 gm/ (Sodium Chloride) 50 mls @ 100 mls/hr IV Q24H [facility] Last Admin: 04/13/21 09:10 Dose: 100 mls/hr Documented by: Lidocaine HCl (Lidocaine 1% 5 Ml Sdv) 5 ml INJECT ONETIME ONE Stop: 04/10/21 18:36 Last Admin: 04/10/21 18:55 Dose: 5 ml Documented by: Naloxone HCl (Naloxone 0.4 Mg/Ml Sdv) 0.4 mg IVPUSH Q2M PRN PRN Reason: Respiratory Distress Neostigmine Methylsulfate (Neostigmine Methylsulfate 1 Mg/Ml 5 Ml Syringe) Confirm Administered Dose 5 mg .ROUTE .STK-MED ONE Stop: 04/11/21 07:37 Ondansetron HCl (Ondansetron 4 Mg/2 Ml Sdv) Confirm Administered Dose 4 mg .ROUTE .STK-MED ONE Stop: 04/10/21 19:09 Last Admin: 04/11/21 01:15 Dose: Not Given Documented by: Ondansetron HCl (Ondansetron 4 Mg/2 Ml Sdv) Confirm Administered Dose 4 mg .ROUTE .STK-MED ONE Stop: 04/11/21 07:37 Oxycodone HCl (Oxycodone 5 Mg Tab) 5 mg PO Q4H PRN PRN Reason: Pain (moderate 4-6) Last Admin: 04/11/21 07:23 Dose: 5 mg Documented by: Potassium Chloride (Potassium Chloride 20 Meq Tab.Er) 40 meq PO ONETIME ONE Stop: 04/10/21 18:21 Last Admin: 04/10/21 18:30 Dose: 40 meq Documented by: Potassium Chloride (Potassium Chloride 20 Meq Tab.Er) 40 meq PO ONETIME ONE Stop: 04/11/21 12:16 Last Admin: 04/11/21 12:53 Dose: 40 meq Documented by: Propofol (Propofol 200 Mg/20 Ml Sdv) Confirm Administered Dose 200 mg .ROUTE .STK-MED ONE Stop: 04/11/21 07:37 Rocuronium [place] (Rocuronium 50 Mg/5 Ml Vial) Confirm Administered Dose 50 mg .ROUTE .STK-MED ONE Stop: 04/11/21 07:37 Succinylcholine Chloride (Succinylcholine 200 Mg/10 Ml Mdv) Confirm Administered Dose 200 mg .ROUTE .STK-MED ONE Stop: 04/11/21 07:37 Sugammadex Sodium (Sugammadex Sodium 200 Mg/2 Ml Vial) Confirm Administered Dose 200 mg .ROUTE .STK-MED ONE Stop: 04/11/21 09:18 - Exam Quality Assessment: DVT Prophylaxis Urinary Catheter Total Time: 1Days 20Hours General: Alert, Oriented, Cooperative, Mild Distress Lungs: Clear to Auscultation, Normal Respiratory Effort Cardiovascular: Regular Rate, Regular Rhythm, No Murmurs GI/Abdominal Exam: Soft, Non-Tender, No Organomegaly, No Distention Extremities: No Pedal Edema - Patient Data Lab Results Last 24 hrs: Laboratory Results - last 24 hr 04/14/21 Range/Units 04:10 WBC 10.6 (4.5-11.0) K/uL RBC 3.73 (3.30-5.50) M/uL Hgb 11.8 L (12.0-15.0) g/dL Hct 34.6 L (36.0-48.0) % MCV 93 (80-98) fL MCH 32 H (27-31) pg MCHC 34 (32-36) % Plt Count 279 (150-400) K/uL Result Diagrams: 04/14/21 04:10 04/12/21 04:25 Sepsis Event Note - Evaluation Sepsis Screening Result: No Definite Risk - Focused Exam Vital Signs: Vital Signs Temp Pulse Resp BP BP BP Pulse Ox 04/14/21 10:46 97.8 F 80 16 153/70 H 95 04/14/21 10:24 97.8 F 93 16 171/64 H 95 04/14/21 09:18 170/70 H 04/14/21 07:00 97.8 F 82 16 170/70 H 95 04/14/21 03:33 97.8 F 100 18 187/89 H 96 - Problem List Review Problem List Initiated/Reviewed/Updated: Yes - My Orders Last 24 Hours: My Active Orders 04/14/21 09:00 Losartan [Cozaar] 50 mg PO DAILY - Plan Plan:: ASSESSMENT AND PLAN Intertrochanteric fracture of left hip-status post surgical treatment with IM nailing on 04/11. Pain well controlled. No significant issues postoperatively. -Saline lock IV -Symptomatic management of pain and nausea -Physical and Occupational Therapy -Weightbearing as tolerated -Son Steven would like to be called with updates [phone] Hypokalemia-improved with supplementation. Elevated blood pressures-history of hypertension, pressures have been consistently elevated over the past few days -Losartan 50 mg p.o. daily Possible urinary tract infection-urine culture grew out pansensitive E. coli. -Continue cephalexin Maintenance issues - - DVT prophylaxis -enoxaparin - GI prophylaxis -Protonix 40 mg daily - Nutrition -regular diet - [place] catheter -removed 04/12. Disposition -anticipate discharge to halfway rehab
[2021-04-15] MEDS: oxyCODONE 5 MG Tab PO PRN (02:38)
[2021-04-15] MEDS: traMADol 50 MG Tab PO PRN ×5 (06:23→23:11)
[2021-04-15] MEDS: Acetaminophen 325 MG Tab PO SCH ×4 (06:23→23:12)
--- NOTE | 2021-04-15 08:59 | PCM.SURGPN ---
- General Info Date of Service: 04/15/21 Date of Surgery/Procedure: 04/11/21 POD#: 4 Post-Op Diagnosis: left hip intertrochanteric fx Admission Diagnosis/Problem: Hip fracture requiring operative repair Functional Status: Reports: Pain Controlled, Tolerating Diet, Ambulating (with FWW, x1 assist ) - Review of Systems General: Denies: Fever, Malaise, Chills HEENT: Denies: Visual Changes Pulmonary: Denies: Shortness of Breath Cardiovascular: Denies: Chest Pain, Palpitations Gastrointestinal: Denies: Nausea, Vomiting Genitourinary: Denies: Dysuria, Urgency, Incontinence, Retention Musculoskeletal: Reports: Leg Pain (left ), Joint Pain (left hip ) Skin: Reports: Bruising Neurological: Reports: Confusion Psychiatric: Reports: No Symptoms - Patient Data Vitals - Most Recent: Last Vital Signs Temp 97.9 F 04/15/21 07:00 Pulse 81 04/15/21 07:00 Resp 16 04/15/21 07:00 BP 150/62 H 04/15/21 07:00 Pulse Ox 93 L 04/15/21 07:00 Weight - Most Recent: 187 lb 8 oz I&O - Last 24 Hours: Intake & Output 04/14/21 04/15/21 04/15/21 22:59 06:59 14:59 Intake Total 240 500 240 Balance 240 500 240 Med Orders - Current: Current Medications Acetaminophen (Acetaminophen 325 Mg Tab) 650 mg PO Q6H [facility] Last Admin: 04/15/21 06:23 Dose: 650 mg Documented by: Albuterol (Albuterol 0.083% 2.5 Mg/3 Ml Neb Soln) 2.5 mg NEB Q4H PRN PRN Reason: Shortness Of Breath/wheezing Bandage/Support Products (Nozin Nasal Copping Machine Operator) 1 applic NASBOTH BID [facility] Stop: 04/18/21 21:01 Last Admin: 04/14/21 20:21 Dose: 1 applic Documented by: Bisacodyl (Bisacodyl 5 Mg Tab) 5 mg PO DAILY PRN PRN Reason: Constipation Celecoxib (Celecoxib 200 Mg Cap) 200 mg PO BID [facility] Cephalexin (Cephalexin 250 Mg Cap) 500 mg PO BID [facility] Stop: 04/15/21 21:01 Last Admin: 04/14/21 20:21 Dose: 500 mg Documented by: Docusate Sodium (Docusate Sodium 100 Mg Cap) 100 mg PO BID [facility] Last Admin: 04/14/21 20:21 Dose: 100 mg Documented by: Enoxaparin Sodium (Enoxaparin 30 Mg/0.3 Ml Syringe) 30 mg SUBCUT DAILY [facility] Last Admin: 04/14/21 08:02 Dose: 30 mg Documented by: Lorazepam (Lorazepam 2 Mg/Ml Sdv) 1 mg IV Q6H PRN PRN Reason: Nausea/Vomiting Losartan Potassium (Losartan 50 Mg Tab) 50 mg PO DAILY [facility] Last Admin: 04/14/21 09:18 Dose: 50 mg Documented by: Magnesium Hydroxide (Magnesium Hydroxide 400 Mg/5 Ml Susp 30 Ml Cup) 30 ml PO Q6H PRN PRN Reason: Stool Softener Last Admin: 04/14/21 20:21 Dose: 30 ml Documented by: Magnesium Oxide (Magnesium Oxide 400 Mg Tab) 400 mg PO DAILY [facility] Last Admin: 04/14/21 08:02 Dose: 400 mg Documented by: Morphine Sulfate (Morphine 2 Mg/Ml Syringe) 1 mg IV Q1H PRN PRN Reason: Breakthrough Pain I-Throid 6.5 Mg (Ptom) 0 mg PO DAILY [facility] Last Admin: 04/14/21 08:02 Dose: Not Given Documented by: Ondansetron HCl (Ondansetron 4 Mg/2 Ml Sdv) 4 mg IVPUSH Q4H PRN PRN Reason: Nausea/Vomiting Last Admin: 04/10/21 19:12 Dose: 4 mg Documented by: Ondansetron HCl (Ondansetron 4 Mg Tab.Dis) 4 mg PO Q6H PRN PRN Reason: Nausea able to take PO Oxycodone HCl (Oxycodone 5 Mg Tab) 5 - 10 mg PO Q4H PRN PRN Reason: Pain Last Admin: 04/15/21 02:38 Dose: 5 mg Documented by: Tramadol HCl (Tramadol 50 Mg Tab) 50 mg PO Q4H PRN PRN Reason: Pain (mild 1-3) Discontinued Medications Acetaminophen (Acetaminophen 325 Mg Tab) 650 mg PO Q4H PRN PRN Reason: Pain (Mild 1-3)/fever Last Admin: 04/11/21 06:28 Dose: 650 mg Documented by: Bupivacaine HCl/Epinephrine Bitart (Bupivacaine 0.5%/Epinephrine 1:200,000 30 Ml Sdv) 30 ml INJECT .STK-MED ONE Stop: 04/11/21 09:15 Last Admin: 04/11/21 09:14 Dose: 30 ml Documented by: Dexamethasone (Dexamethasone 4 Mg/Ml Sdv) Confirm Administered Dose 4 mg .ROUTE .STK-MED ONE Stop: 04/11/21 07:37 Docusate Sodium (Docusate Sodium 100 Mg Cap) 100 mg PO BID PRN PRN Reason: Constipation Fentanyl (Fentanyl 100 Mcg/2 Ml Sdv) 50 mcg IM ONETIME ONE Stop: 04/10/21 16:06 Last Admin: 04/10/21 16:12 Dose: 50 mcg Documented by: Fentanyl (Fentanyl 100 Mcg/2 Ml Sdv) 50 mcg IVPUSH ONETIME ONE Stop: 04/10/21 17:39 Last Admin: 04/10/21 17:54 Dose: 50 mcg Documented by: Fentanyl (Fentanyl 250 Mcg/5 Ml Sdv) Confirm Administered Dose 250 mcg .ROUTE .STK-MED ONE Stop: 04/11/21 07:36 Glycopyrrolate (Glycopyrrolate 0.2 Mg/Ml 5 Ml Mdv) Confirm Administered Dose 1 mg .ROUTE .STK-MED ONE Stop: 04/11/21 07:37 Hydromorphone HCl (Hydromorphone 1 Mg/Ml Syringe) 1 mg IVPUSH ONETIME ONE Stop: 04/10/21 18:36 Last Admin: 04/10/21 18:52 Dose: 1 mg Documented by: Hydromorphone HCl (Hydromorphone/Normal Saline 15 Mg/30 Ml Electric Power Line Examiner) 0 mg IV ASDIRECTED PRN; Protocol PRN Reason: Pain Last Admin: 04/10/21 21:16 Dose: 15 mg Documented by: Cefazolin Sodium/Dextrose 1 gm (/ Premix) 50 mls @ 100 mls/hr IV ONETIME ONE Stop: 04/11/21 07:59 Last Admin: 04/11/21 07:58 Dose: 100 mls/hr Documented by: Potassium Chloride 20 meq/ (Premix) 100 mls @ 50 mls/hr IV ONETIME ONE Stop: 04/10/21 20:19 Last Admin: 04/10/21 18:54 Dose: 50 mls/hr Documented by: Sodium Chloride (Normal Saline) 1,000 mls @ 100 mls/hr IV ASDIRECTED [facility] Last Admin: 04/11/21 07:00 Dose: 100 mls/hr Documented by: Sodium Chloride (Normal Saline) 1,000 mls @ 125 mls/hr IV ASDIRECTED [facility] Last Infusion: 04/12/21 02:00 Dose: 25 mls/hr Documented by: Cefazolin Sodium/Dextrose 1 gm (/ Premix) 50 mls @ 100 mls/hr IV Q8H [facility] Stop: 04/11/21 23:29 Last Admin: 04/11/21 22:18 Dose: 100 mls/hr Documented by: Ceftriaxone Sodium 1 gm/ (Sodium Chloride) 50 mls @ 100 mls/hr IV Q24H [facility] Last Admin: 04/13/21 09:10 Dose: 100 mls/hr Documented by: Lidocaine HCl (Lidocaine 1% 5 Ml Sdv) 5 ml INJECT ONETIME ONE Stop: 04/10/21 18:36 Last Admin: 04/10/21 18:55 Dose: 5 ml Documented by: Naloxone HCl (Naloxone 0.4 Mg/Ml Sdv) 0.4 mg IVPUSH Q2M PRN PRN Reason: Respiratory Distress Neostigmine Methylsulfate (Neostigmine Methylsulfate 1 Mg/Ml 5 Ml Syringe) Confirm Administered Dose 5 mg .ROUTE .STK-MED ONE Stop: 04/11/21 07:37 Ondansetron HCl (Ondansetron 4 Mg/2 Ml Sdv) Confirm Administered Dose 4 mg .ROUTE .STK-MED ONE Stop: 04/10/21 19:09 Last Admin: 04/11/21 01:15 Dose: Not Given Documented by: Ondansetron HCl (Ondansetron 4 Mg/2 Ml Sdv) Confirm Administered Dose 4 mg .ROUTE .STK-MED ONE Stop: 04/11/21 07:37 Oxycodone HCl (Oxycodone 5 Mg Tab) 5 mg PO Q4H PRN PRN Reason: Pain (moderate 4-6) Last Admin: 04/11/21 07:23 Dose: 5 mg Documented by: Potassium Chloride (Potassium Chloride 20 Meq Tab.Er) 40 meq PO ONETIME ONE Stop: 04/10/21 18:21 Last Admin: 04/10/21 18:30 Dose: 40 meq Documented by: Potassium Chloride (Potassium Chloride 20 Meq Tab.Er) 40 meq PO ONETIME ONE Stop: 04/11/21 12:16 Last Admin: 04/11/21 12:53 Dose: 40 meq Documented by: Propofol (Propofol 200 Mg/20 Ml Sdv) Confirm Administered Dose 200 mg .ROUTE .STK-MED ONE Stop: 04/11/21 07:37 Rocuronium Dexter (Rocuronium 50 Mg/5 Ml Vial) Confirm Administered Dose 50 mg .ROUTE .STK-MED ONE Stop: 04/11/21 07:37 Succinylcholine Chloride (Succinylcholine 200 Mg/10 Ml Mdv) Confirm Administered Dose 200 mg .ROUTE .STK-MED ONE Stop: 04/11/21 07:37 Sugammadex Sodium (Sugammadex Sodium 200 Mg/2 Ml Vial) Confirm Administered Dose 200 mg .ROUTE .STK-MED ONE Stop: 04/11/21 09:18 Tramadol HCl (Tramadol 50 Mg Tab) 50 mg PO Q6H PRN PRN Reason: Pain (mild 1-3) Last Admin: 04/15/21 06:23 Dose: 50 mg Documented by: - Exam Wound/Incisions: Healing Well, Dressing Dry and Intact, No Drainage Quality Assessment: DVT Prophylaxis General: Alert, Cooperative, No Acute Distress Extremities: No Pedal Edema, Normal Capillary Refill, Leg Pain (left ), Limited Range of Motion (left hip due to posteropative pain ), Increased Warmth. No: Zainab's Sign Skin: Dry, Intact, Ecchymosis Neurological: No New Focal Deficit Psy/Mental Status: Alert, Normal Affect, Normal Mood Sepsis Event Note - Evaluation Sepsis Screening Result: No Definite Risk - Focused Exam Vital Signs: Vital Signs Temp Pulse Resp BP BP Pulse Ox 04/15/21 07:00 97.9 F 81 16 150/62 H 93 L 04/15/21 02:35 97.9 F 102 H 18 161/71 H 93 L 04/14/21 23:04 184/79 H 04/14/21 22:21 97.8 F 94 18 188/77 H 188/84 H 95 - Problem List & Annotations (1) Status post hip surgery SNOMED Code(s): 459708537, 755510008 Code(s): Z98.890 - OTHER SPECIFIED POSTPROCEDURAL STATES Status: Acute Current Visit: Yes Annotation/Comment:: left closed reduction and in tramedullary fixation (TFN) DOS: 04/11/21 (2) Postoperative anemia SNOMED Code(s): 206561767, 450679880 Code(s): D64.9 - ANEMIA, UNSPECIFIED Status: Acute Current Visit: Yes - Problem List Review Problem List Initiated/Reviewed/Updated: Yes - My Orders Last 24 Hours: Active Orders 24 hr Category Date Time Status Celecoxib [CeleBREX] Med 04/15/21 09:00 Active 200 mg PO BID Losartan [Cozaar] Med 04/14/21 09:00 Active 50 mg PO DAILY cephALEXin [Keflex] Med 04/14/21 09:00 Active 500 mg PO BID traMADol [Ultram] Med 04/15/21 08:09 Active 50 mg PO Q4H PRN Medication Orders Acetaminophen (Acetaminophen 325 Mg Tab) 650 mg PO Q6H [facility] Last Admin: 04/15/21 06:23 Dose: 650 mg Documented by: Admin: 04/14/21 23:08 Dose: 650 mg Documented by: Admin: 04/14/21 17:16 Dose: 650 mg Documented by: Admin: 04/14/21 11:53 Dose: 650 mg Documented by: Admin: 04/14/21 05:59 Dose: 650 mg Documented by: Admin: 04/13/21 23:28 Dose: 650 mg Documented by: Admin: 04/13/21 17:16 Dose: 650 mg Documented by: Admin: 04/13/21 11:54 Dose: 650 mg Documented by: Admin: 04/13/21 05:59 Dose: 650 mg Documented by: Admin: 04/13/21 02:18 Dose: 650 mg Documented by: Admin: 04/12/21 17:01 Dose: 650 mg Documented by: Admin: 04/12/21 11:57 Dose: 650 mg Documented by: Admin: 04/12/21 07:46 Dose: 650 mg Documented by: Admin: 04/11/21 23:39 Dose: Not Given Documented by: Admin: 04/11/21 17:39 Dose: 650 mg Documented by: Admin: 04/11/21 11:50 Dose: 650 mg Documented by: LAURA Albuterol (Albuterol 0.083% 2.5 Mg/3 Ml Neb Soln) 2.5 mg NEB Q4H PRN PRN Reason: Shortness Of Breath/wheezing Bandage/Support Products (Nozin Nasal Copping Machine Operator) 1 applic NASBOTH BID [facility] Stop: 04/18/21 21:01 Last Admin: 04/14/21 20:21 Dose: 1 applic Documented by: Admin: 04/14/21 08:02 Dose: 1 applic Documented by: Admin: 04/13/21 21:03 Dose: 1 applic Documented by: Admin: 04/13/21 09:06 Dose: 1 applic Documented by: Admin: 04/12/21 20:19 Dose: 1 applic Documented by: Admin: 04/12/21 09:03 Dose: 1 applic Documented by: Admin: 04/11/21 20:32 Dose: Not Given Documented by: JACLYN Bisacodyl (Bisacodyl 5 Mg Tab) 5 mg PO DAILY PRN PRN Reason: Constipation Celecoxib (Celecoxib 200 Mg Cap) 200 mg PO BID [facility] Cephalexin (Cephalexin 250 Mg Cap) 500 mg PO BID [facility] Stop: 04/15/21 21:01 Last Admin: 04/14/21 20:21 Dose: 500 mg Documented by: Admin: 04/14/21 08:02 Dose: 500 mg Documented by: ANA Docusate Sodium (Docusate Sodium 100 Mg Cap) 100 mg PO BID [facility] Last Admin: 04/14/21 20:21 Dose: 100 mg Documented by: Admin: 04/14/21 08:02 Dose: 100 mg Documented by: Admin: 04/13/21 21:04 Dose: 100 mg Documented by: Admin: 04/13/21 09:06 Dose: 100 mg Documented by: Admin: 04/12/21 20:19 Dose: 100 mg Documented by: Admin: 04/12/21 09:02 Dose: 100 mg Documented by: Admin: 04/11/21 20:27 Dose: 100 mg Documented by: JACLYN Enoxaparin Sodium (Enoxaparin 30 Mg/0.3 Ml Syringe) 30 mg SUBCUT DAILY [facility] Last Admin: 04/14/21 08:02 Dose: 30 mg Documented by: Admin: 04/13/21 09:06 Dose: 30 mg Documented by: Admin: 04/12/21 09:02 Dose: 30 mg Documented by: RENE Lorazepam (Lorazepam 2 Mg/Ml Sdv) 1 mg IV Q6H PRN PRN Reason: Nausea/Vomiting Losartan Potassium (Losartan 50 Mg Tab) 50 mg PO DAILY [facility] Last Admin: 04/14/21 09:18 Dose: 50 mg Documented by: ANA Magnesium Hydroxide (Magnesium Hydroxide 400 Mg/5 Ml Susp 30 Ml Cup) 30 ml PO Q6H PRN PRN Reason: Stool Softener Last Admin: 04/14/21 20:21 Dose: 30 ml Documented by: Admin: 04/14/21 07:55 Dose: 30 ml Documented by: ANA Magnesium Oxide (Magnesium Oxide 400 Mg Tab) 400 mg PO DAILY [facility] Last Admin: 04/14/21 08:02 Dose: 400 mg Documented by: Admin: 04/13/21 09:06 Dose: 400 mg Documented by: Admin: 04/12/21 09:02 Dose: 400 mg Documented by: RENE Morphine Sulfate (Morphine 2 Mg/Ml Syringe) 1 mg IV Q1H PRN PRN Reason: Breakthrough Pain I-Throid 6.5 Mg (Ptom) 0 mg PO DAILY [facility] Last Admin: 04/14/21 08:02 Dose: Not Given Documented by: Admin: 04/13/21 08:40 Dose: Not Given Documented by: Admin: 04/12/21 09:03 Dose: Not Given Documented by: RENE Ondansetron HCl (Ondansetron 4 Mg/2 Ml Sdv) 4 mg IVPUSH Q4H PRN PRN Reason: Nausea/Vomiting Last Admin: 04/10/21 19:12 Dose: 4 mg Documented by: GILBERT Ondansetron HCl (Ondansetron 4 Mg Tab.Dis) 4 mg PO Q6H PRN PRN Reason: Nausea able to take PO Oxycodone HCl (Oxycodone 5 Mg Tab) 5 - 10 mg PO Q4H PRN PRN Reason: Pain Last Admin: 04/15/21 02:38 Dose: 5 mg Documented by: Admin: 04/14/21 20:21 Dose: 5 mg Documented by: Admin: 04/14/21 13:38 Dose: 5 mg Documented by: Admin: 04/14/21 09:18 Dose: 5 mg Documented by: Admin: 04/13/21 04:23 Dose: 5 mg Documented by: Admin: 04/12/21 22:31 Dose: 10 mg Documented by: Admin: 04/12/21 17:37 Dose: 10 mg Documented by: Admin: 04/12/21 13:36 Dose: 5 mg Documented by: RENE Tramadol HCl (Tramadol 50 Mg Tab) 50 mg PO Q4H PRN PRN Reason: Pain (mild 1-3) - Assessment Assessment (Free Text/Narrative):: Patient is a pleasant 80-year-old female, status post left trochanteric fixation nailing following intertrochanteric fracture, postop day #4. Patient remains hemodynamically stable at this time, with the exception of elevated blood pressures. Although blood pressures have improved since starting losartan yesterday morning. No acute events overnight. Patient has been weaned to room air and maintaining oxygen saturation greater than 90% over the past 24 hours. Tolerating regular diet well without nausea or emesis. While patient is A&Ox3, she does have some fogginess throughout conversation. Patient's pain in left hip is well controlled at this time. Increased discomfort in left hip with weightbearing activities. Patient denied left calf pain or paresthesias to left lower extremity. Has been compliant with physical therapy services daily. Ambulation per abilities are progressing nicely. Patient did ambulate 60 feet with four-wheel walker and x1 assist yesterday afternoon. Does require a moderate x1 assist with lifting left leg into and out of bed. Moderate assistance required with most ADLs. Plan: * Hospitalist to kindly continue medical management of this patient. * Patient to participate in physical and occupational therapy services daily to progress functional mobility of left lower extremity. * Adjusted pain regimen to allow for scheduled Celebrex and scheduled Tylenol. Tramadol available as needed for breakthrough pain. We will try to avoid oxycodone today and see if this improves patient's fogginess. * Continue with 30 mg Lovenox for chemical DVT/VTE prophylaxis and bilateral LE SCDs for mechanical DVT/VTE prophylaxis. * Dressing was changed POD#2. Dressing over superior incision has fallen off; may remove lower incision dressing and allow patient to shower today. Will apply new dressing this afternoon after shower. * Anticipate discharge to either SNF for additional rehabilitation services, or to home with daughter Brittaney at [facility], if daughter is able to stay. Daughter will be present for PT sessions today and decide if she is able to help manage patient at home, or if SNF placement is necessary.
[2021-04-15] MEDS: Docusate Sodium 100 MG Cap PO SCH ×2 (09:03→20:03)
[2021-04-15] MEDS: Cephalexin 250 MG Cap PO SCH ×2 (09:03→20:03)
[2021-04-15] MEDS: Celecoxib 200 MG Cap PO SCH ×2 (09:03→20:03)
[2021-04-15] MEDS: Magnesium Oxide 400 MG Tab PO SCH (09:03)
[2021-04-15] MEDS: Magnesium Hydroxide 400 MG/5 ML Susp 30 ML Cup PO PRN (09:03)
[2021-04-15] MEDS: Enoxaparin 30 MG/0.3 ML Syringe SUBCUT SCH (09:04)
[2021-04-15] MEDS: Losartan 50 MG Tab PO SCH (09:04)
[2021-04-15] MEDS: [UNRECOGNIZED DRUG - OTHER] PO SCH (09:06)
[2021-04-15] MEDS: Nozin Nasal Sanitizer NASBOTH SCH ×2 (09:06→20:03)
--- NOTE | 2021-04-15 15:19 | PCM.PN ---
- General Info Date of Service: 04/15/21 Subjective Update: Ms. Grimaldo has been stable since yesterday. She is regaining strength and is able to transfer and ambulate with minimal assistance of 1. She has been participating in physical therapy twice daily. She feels that current pain control is adequate but does note increased soreness following activity. - Review of Systems General: Reports: No Symptoms Pulmonary: Reports: No Symptoms Cardiovascular: Reports: No Symptoms Gastrointestinal: Reports: No Symptoms Musculoskeletal: Reports: Joint Pain - Patient Data Vitals - Most Recent: Last Vital Signs Temp 97.9 F 04/15/21 14:26 Pulse 86 04/15/21 14:26 Resp 16 04/15/21 14:26 BP 155/71 H 04/15/21 14:26 Pulse Ox 94 L 04/15/21 14:26 Weight - Most Recent: 187 lb 8 oz I&O - Last 24 Hours: Intake & Output 04/15/21 04/15/21 04/15/21 06:59 14:59 22:59 Intake Total 500 600 Balance 500 600 Med Orders - Current: Current Medications Acetaminophen (Acetaminophen 325 Mg Tab) 650 mg PO Q6H [facility] Last Admin: 04/15/21 12:38 Dose: 650 mg Documented by: Albuterol (Albuterol 0.083% 2.5 Mg/3 Ml Neb Soln) 2.5 mg NEB Q4H PRN PRN Reason: Shortness Of Breath/wheezing Bandage/Support Products (Nozin Nasal Box Lidder) 1 applic NASBOTH BID [facility] Stop: 04/18/21 21:01 Last Admin: 04/15/21 09:06 Dose: 1 applic Documented by: Bisacodyl (Bisacodyl 5 Mg Tab) 5 mg PO DAILY PRN PRN Reason: Constipation Last Admin: 04/15/21 09:03 Dose: 5 mg Documented by: Celecoxib (Celecoxib 200 Mg Cap) 200 mg PO BID [facility] Last Admin: 04/15/21 09:03 Dose: 200 mg Documented by: Cephalexin (Cephalexin 250 Mg Cap) 500 mg PO BID [facility] Stop: 04/15/21 21:01 Last Admin: 04/15/21 09:03 Dose: 500 mg Documented by: Docusate Sodium (Docusate Sodium 100 Mg Cap) 100 mg PO BID [facility] Last Admin: 04/15/21 09:03 Dose: 100 mg Documented by: Enoxaparin Sodium (Enoxaparin 30 Mg/0.3 Ml Syringe) 30 mg SUBCUT DAILY [facility] Last Admin: 04/15/21 09:04 Dose: 30 mg Documented by: Lorazepam (Lorazepam 2 Mg/Ml Sdv) 1 mg IV Q6H PRN PRN Reason: Nausea/Vomiting Losartan Potassium (Losartan 50 Mg Tab) 50 mg PO DAILY [facility] Last Admin: 04/15/21 09:04 Dose: 50 mg Documented by: Magnesium Hydroxide (Magnesium Hydroxide 400 Mg/5 Ml Susp 30 Ml Cup) 30 ml PO Q6H PRN PRN Reason: Stool Softener Last Admin: 04/15/21 09:03 Dose: 30 ml Documented by: Magnesium Oxide (Magnesium Oxide 400 Mg Tab) 400 mg PO DAILY [facility] Last Admin: 04/15/21 09:03 Dose: 400 mg Documented by: Morphine Sulfate (Morphine 2 Mg/Ml Syringe) 1 mg IV Q1H PRN PRN Reason: Breakthrough Pain I-Throid 6.5 Mg (Ptom) 0 mg PO DAILY [facility] Last Admin: 04/15/21 09:06 Dose: Not Given Documented by: Ondansetron HCl (Ondansetron 4 Mg/2 Ml Sdv) 4 mg IVPUSH Q4H PRN PRN Reason: Nausea/Vomiting Last Admin: 04/10/21 19:12 Dose: 4 mg Documented by: Ondansetron HCl (Ondansetron 4 Mg Tab.Dis) 4 mg PO Q6H PRN PRN Reason: Nausea able to take PO Oxycodone HCl (Oxycodone 5 Mg Tab) 5 - 10 mg PO Q4H PRN PRN Reason: Pain Last Admin: 04/15/21 02:38 Dose: 5 mg Documented by: Tramadol HCl (Tramadol 50 Mg Tab) 50 mg PO Q4H PRN PRN Reason: Pain (mild 1-3) Last Admin: 04/15/21 10:46 Dose: 50 mg Documented by: Discontinued Medications Acetaminophen (Acetaminophen 325 Mg Tab) 650 mg PO Q4H PRN PRN Reason: Pain (Mild 1-3)/fever Last Admin: 04/11/21 06:28 Dose: 650 mg Documented by: Bupivacaine HCl/Epinephrine Bitart (Bupivacaine 0.5%/Epinephrine 1:200,000 30 Ml Sdv) 30 ml INJECT .STK-MED ONE Stop: 04/11/21 09:15 Last Admin: 04/11/21 09:14 Dose: 30 ml Documented by: Dexamethasone (Dexamethasone 4 Mg/Ml Sdv) Confirm Administered Dose 4 mg .ROUTE .STK-MED ONE Stop: 04/11/21 07:37 Docusate Sodium (Docusate Sodium 100 Mg Cap) 100 mg PO BID PRN PRN Reason: Constipation Fentanyl (Fentanyl 100 Mcg/2 Ml Sdv) 50 mcg IM ONETIME ONE Stop: 04/10/21 16:06 Last Admin: 04/10/21 16:12 Dose: 50 mcg Documented by: Fentanyl (Fentanyl 100 Mcg/2 Ml Sdv) 50 mcg IVPUSH ONETIME ONE Stop: 04/10/21 17:39 Last Admin: 04/10/21 17:54 Dose: 50 mcg Documented by: Fentanyl (Fentanyl 250 Mcg/5 Ml Sdv) Confirm Administered Dose 250 mcg .ROUTE .STK-MED ONE Stop: 04/11/21 07:36 Glycopyrrolate (Glycopyrrolate 0.2 Mg/Ml 5 Ml Mdv) Confirm Administered Dose 1 mg .ROUTE .STK-MED ONE Stop: 04/11/21 07:37 Hydromorphone HCl (Hydromorphone 1 Mg/Ml Syringe) 1 mg IVPUSH ONETIME ONE Stop: 04/10/21 18:36 Last Admin: 04/10/21 18:52 Dose: 1 mg Documented by: Hydromorphone HCl (Hydromorphone/Normal Saline 15 Mg/30 Ml Slip Caster) 0 mg IV ASDIRECTED PRN; Protocol PRN Reason: Pain Last Admin: 04/10/21 21:16 Dose: 15 mg Documented by: Cefazolin Sodium/Dextrose 1 gm (/ Premix) 50 mls @ 100 mls/hr IV ONETIME ONE Stop: 04/11/21 07:59 Last Admin: 04/11/21 07:58 Dose: 100 mls/hr Documented by: Potassium Chloride 20 meq/ (Premix) 100 mls @ 50 mls/hr IV ONETIME ONE Stop: 04/10/21 20:19 Last Admin: 04/10/21 18:54 Dose: 50 mls/hr Documented by: Sodium Chloride (Normal Saline) 1,000 mls @ 100 mls/hr IV ASDIRECTED [facility] Last Admin: 04/11/21 07:00 Dose: 100 mls/hr Documented by: Sodium Chloride (Normal Saline) 1,000 mls @ 125 mls/hr IV ASDIRECTED [facility] Last Infusion: 04/12/21 02:00 Dose: 25 mls/hr Documented by: Cefazolin Sodium/Dextrose 1 gm (/ Premix) 50 mls @ 100 mls/hr IV Q8H [facility] Stop: 04/11/21 23:29 Last Admin: 04/11/21 22:18 Dose: 100 mls/hr Documented by: Ceftriaxone Sodium 1 gm/ (Sodium Chloride) 50 mls @ 100 mls/hr IV Q24H [facility] Last Admin: 04/13/21 09:10 Dose: 100 mls/hr Documented by: Lidocaine HCl (Lidocaine 1% 5 Ml Sdv) 5 ml INJECT ONETIME ONE Stop: 04/10/21 18:36 Last Admin: 04/10/21 18:55 Dose: 5 ml Documented by: Naloxone HCl (Naloxone 0.4 Mg/Ml Sdv) 0.4 mg IVPUSH Q2M PRN PRN Reason: Respiratory Distress Neostigmine Methylsulfate (Neostigmine Methylsulfate 1 Mg/Ml 5 Ml Syringe) Confirm Administered Dose 5 mg .ROUTE .STK-MED ONE Stop: 04/11/21 07:37 Ondansetron HCl (Ondansetron 4 Mg/2 Ml Sdv) Confirm Administered Dose 4 mg .ROUTE .STK-MED ONE Stop: 04/10/21 19:09 Last Admin: 04/11/21 01:15 Dose: Not Given Documented by: Ondansetron HCl (Ondansetron 4 Mg/2 Ml Sdv) Confirm Administered Dose 4 mg .ROUTE .STK-MED ONE Stop: 04/11/21 07:37 Oxycodone HCl (Oxycodone 5 Mg Tab) 5 mg PO Q4H PRN PRN Reason: Pain (moderate 4-6) Last Admin: 04/11/21 07:23 Dose: 5 mg Documented by: Potassium Chloride (Potassium Chloride 20 Meq Tab.Er) 40 meq PO ONETIME ONE Stop: 04/10/21 18:21 Last Admin: 04/10/21 18:30 Dose: 40 meq Documented by: Potassium Chloride (Potassium Chloride 20 Meq Tab.Er) 40 meq PO ONETIME ONE Stop: 04/11/21 12:16 Last Admin: 04/11/21 12:53 Dose: 40 meq Documented by: Propofol (Propofol 200 Mg/20 Ml Sdv) Confirm Administered Dose 200 mg .ROUTE .STK-MED ONE Stop: 04/11/21 07:37 Rocuronium [place] (Rocuronium 50 Mg/5 Ml Vial) Confirm Administered Dose 50 mg .ROUTE .STK-MED ONE Stop: 04/11/21 07:37 Succinylcholine Chloride (Succinylcholine 200 Mg/10 Ml Mdv) Confirm Administered Dose 200 mg .ROUTE .STK-MED ONE Stop: 04/11/21 07:37 Sugammadex Sodium (Sugammadex Sodium 200 Mg/2 Ml Vial) Confirm Administered Dose 200 mg .ROUTE .STK-MED ONE Stop: 04/11/21 09:18 Tramadol HCl (Tramadol 50 Mg Tab) 50 mg PO Q6H PRN PRN Reason: Pain (mild 1-3) Last Admin: 04/15/21 06:23 Dose: 50 mg Documented by: - Exam Quality Assessment: DVT Prophylaxis Urinary Catheter Total Time: 1Days 20Hours General: Alert, Oriented, Cooperative, Mild Distress Lungs: Clear to Auscultation, Normal Respiratory Effort Cardiovascular: Regular Rate, Regular Rhythm, No Murmurs GI/Abdominal Exam: Soft, Non-Tender, No Organomegaly, No Distention Extremities: No Pedal Edema - Patient Data Result Diagrams: 04/14/21 04:10 04/12/21 04:25 Sepsis Event Note - Evaluation Sepsis Screening Result: No Definite Risk - Focused Exam Vital Signs: Vital Signs Temp Pulse Resp BP BP BP Pulse Ox 04/15/21 14:26 97.9 F 86 16 155/71 H 94 L 04/15/21 10:51 97.8 F 80 16 166/73 H 94 L 04/15/21 09:04 128/42 L 04/15/21 07:00 97.9 F 81 16 150/62 H 93 L - Problem List Review Problem List Initiated/Reviewed/Updated: Yes - Plan Plan:: ASSESSMENT AND PLAN Intertrochanteric fracture of left hip-status post surgical treatment with IM nailing on 04/11. Pain well controlled. No significant issues postoperatively. -Saline lock IV -Symptomatic management of pain and nausea -Physical and Occupational Therapy -Weightbearing as tolerated Hypokalemia-improved with supplementation. Elevated blood pressures-history of hypertension, pressures have improved with addition of losartan -Losartan 50 mg p.o. daily Possible urinary tract infection-urine culture grew out pansensitive E. coli. -Continue cephalexin Maintenance issues - - DVT prophylaxis -enoxaparin - GI prophylaxis -Protonix 40 mg daily - Nutrition -regular diet - Morrissey catheter -removed 04/12. Disposition -anticipate discharge to home, with home health care, after her hospital stay
[2021-04-16] MEDS: traMADol 50 MG Tab PO PRN ×4 (03:01→20:12)
[2021-04-16] MEDS: Acetaminophen 325 MG Tab PO SCH ×3 (05:17→17:41)
[2021-04-16] MEDS: oxyCODONE 5 MG Tab PO PRN ×3 (07:19→21:26)
[2021-04-16] MEDS: Nozin Nasal Sanitizer NASBOTH SCH ×2 (08:37→20:15)
[2021-04-16] MEDS: Enoxaparin 30 MG/0.3 ML Syringe SUBCUT SCH (08:38)
[2021-04-16] MEDS: Losartan 50 MG Tab PO SCH (08:38)
[2021-04-16] MEDS: Magnesium Oxide 400 MG Tab PO SCH (08:39)
[2021-04-16] MEDS: Celecoxib 200 MG Cap PO SCH ×2 (08:39→20:11)
[2021-04-16] MEDS: Docusate Sodium 100 MG Cap PO SCH ×2 (08:40→20:11)
[2021-04-16] MEDS: [UNRECOGNIZED DRUG - OTHER] PO SCH (08:40)
--- NOTE | 2021-04-16 15:16 | PCM.PN ---
- General Info Date of Service: 04/16/21 Subjective Update: Ms. Grimaldo has been fairly stable since yesterday. Blood pressure has improved with addition of losartan, but still remains elevated above desired range. Overall pain control has been adequate, she is more sore and achy after activity. Functional Status: Reports: Tolerating Diet, Ambulating, Urinating - Review of Systems General: Reports: No Symptoms Pulmonary: Reports: No Symptoms Cardiovascular: Reports: No Symptoms Gastrointestinal: Reports: No Symptoms Genitourinary: Reports: No Symptoms - Patient Data Vitals - Most Recent: Last Vital Signs Temp 97.9 F 04/16/21 14:59 Pulse 87 04/16/21 14:59 Resp 16 04/16/21 14:59 BP 166/83 H 04/16/21 14:59 Pulse Ox 97 04/16/21 11:33 Weight - Most Recent: 187 lb 8 oz I&O - Last 24 Hours: Intake & Output 04/16/21 04/16/21 04/16/21 06:59 14:59 22:59 Intake Total 500 780 Output Total 400 Balance 500 380 Med Orders - Current: Current Medications Acetaminophen (Acetaminophen 325 Mg Tab) 650 mg PO Q6H [facility] Last Admin: 04/16/21 13:00 Dose: 650 mg Documented by: Albuterol (Albuterol 0.083% 2.5 Mg/3 Ml Neb Soln) 2.5 mg NEB Q4H PRN PRN Reason: Shortness Of Breath/wheezing Bandage/Support Products (Nozin Nasal Distribution Field Technician) 1 applic NASBOTH BID [facility] Stop: 04/18/21 21:01 Last Admin: 04/16/21 08:37 Dose: 1 applic Documented by: Bisacodyl (Bisacodyl 5 Mg Tab) 5 mg PO DAILY PRN PRN Reason: Constipation Last Admin: 04/15/21 09:03 Dose: 5 mg Documented by: Celecoxib (Celecoxib 200 Mg Cap) 200 mg PO BID [facility] Last Admin: 04/16/21 08:39 Dose: 200 mg Documented by: Docusate Sodium (Docusate Sodium 100 Mg Cap) 100 mg PO BID [facility] Last Admin: 04/16/21 08:40 Dose: 100 mg Documented by: Enoxaparin Sodium (Enoxaparin 30 Mg/0.3 Ml Syringe) 30 mg SUBCUT DAILY [facility] Last Admin: 04/16/21 08:38 Dose: 30 mg Documented by: Lorazepam (Lorazepam 2 Mg/Ml Sdv) 1 mg IV Q6H PRN PRN Reason: Nausea/Vomiting Losartan Potassium (Losartan 50 Mg Tab) 50 mg PO DAILY [facility] Last Admin: 04/16/21 08:38 Dose: 50 mg Documented by: Magnesium Hydroxide (Magnesium Hydroxide 400 Mg/5 Ml Susp 30 Ml Cup) 30 ml PO Q6H PRN PRN Reason: Stool Softener Last Admin: 04/15/21 09:03 Dose: 30 ml Documented by: Magnesium Oxide (Magnesium Oxide 400 Mg Tab) 400 mg PO DAILY [facility] Last Admin: 04/16/21 08:39 Dose: 400 mg Documented by: Metoprolol Tartrate (Metoprolol Tartrate 25 Mg Tab) 25 mg PO BID [facility] Morphine Sulfate (Morphine 2 Mg/Ml Syringe) 1 mg IV Q1H PRN PRN Reason: Breakthrough Pain I-Throid 6.5 Mg (Ptom) 0 mg PO DAILY [facility] Last Admin: 04/16/21 08:40 Dose: Not Given Documented by: Ondansetron HCl (Ondansetron 4 Mg/2 Ml Sdv) 4 mg IVPUSH Q4H PRN PRN Reason: Nausea/Vomiting Last Admin: 04/10/21 19:12 Dose: 4 mg Documented by: Ondansetron HCl (Ondansetron 4 Mg Tab.Dis) 4 mg PO Q6H PRN PRN Reason: Nausea able to take PO Oxycodone HCl (Oxycodone 5 Mg Tab) 5 - 10 mg PO Q4H PRN PRN Reason: Pain Last Admin: 04/16/21 13:01 Dose: 5 mg Documented by: Tramadol HCl (Tramadol 50 Mg Tab) 50 mg PO Q4H PRN PRN Reason: Pain (mild 1-3) Last Admin: 04/16/21 10:00 Dose: 50 mg Documented by: Discontinued Medications Acetaminophen (Acetaminophen 325 Mg Tab) 650 mg PO Q4H PRN PRN Reason: Pain (Mild 1-3)/fever Last Admin: 04/11/21 06:28 Dose: 650 mg Documented by: Bupivacaine HCl/Epinephrine Bitart (Bupivacaine 0.5%/Epinephrine 1:200,000 30 Ml Sdv) 30 ml INJECT .STK-MED ONE Stop: 04/11/21 09:15 Last Admin: 04/11/21 09:14 Dose: 30 ml Documented by: Cephalexin (Cephalexin 250 Mg Cap) 500 mg PO BID [facility] Stop: 04/15/21 21:01 Last Admin: 04/15/21 20:03 Dose: 500 mg Documented by: Dexamethasone (Dexamethasone 4 Mg/Ml Sdv) Confirm Administered Dose 4 mg .ROUTE .STK-MED ONE Stop: 04/11/21 07:37 Docusate Sodium (Docusate Sodium 100 Mg Cap) 100 mg PO BID PRN PRN Reason: Constipation Fentanyl (Fentanyl 100 Mcg/2 Ml Sdv) 50 mcg IM ONETIME ONE Stop: 04/10/21 16:06 Last Admin: 04/10/21 16:12 Dose: 50 mcg Documented by: Fentanyl (Fentanyl 100 Mcg/2 Ml Sdv) 50 mcg IVPUSH ONETIME ONE Stop: 04/10/21 17:39 Last Admin: 04/10/21 17:54 Dose: 50 mcg Documented by: Fentanyl (Fentanyl 250 Mcg/5 Ml Sdv) Confirm Administered Dose 250 mcg .ROUTE .STK-MED ONE Stop: 04/11/21 07:36 Glycopyrrolate (Glycopyrrolate 0.2 Mg/Ml 5 Ml Mdv) Confirm Administered Dose 1 mg .ROUTE .STK-MED ONE Stop: 04/11/21 07:37 Hydromorphone HCl (Hydromorphone 1 Mg/Ml Syringe) 1 mg IVPUSH ONETIME ONE Stop: 04/10/21 18:36 Last Admin: 04/10/21 18:52 Dose: 1 mg Documented by: Hydromorphone HCl (Hydromorphone/Normal Saline 15 Mg/30 Ml Biochemical Engineer) 0 mg IV ASDIRECTED PRN; Protocol PRN Reason: Pain Last Admin: 04/10/21 21:16 Dose: 15 mg Documented by: Cefazolin Sodium/Dextrose 1 gm (/ Premix) 50 mls @ 100 mls/hr IV ONETIME ONE Stop: 04/11/21 07:59 Last Admin: 04/11/21 07:58 Dose: 100 mls/hr Documented by: Potassium Chloride 20 meq/ (Premix) 100 mls @ 50 mls/hr IV ONETIME ONE Stop: 04/10/21 20:19 Last Admin: 04/10/21 18:54 Dose: 50 mls/hr Documented by: Sodium Chloride (Normal Saline) 1,000 mls @ 100 mls/hr IV ASDIRECTED [facility] Last Admin: 04/11/21 07:00 Dose: 100 mls/hr Documented by: Sodium Chloride (Normal Saline) 1,000 mls @ 125 mls/hr IV ASDIRECTED [facility] Last Infusion: 04/12/21 02:00 Dose: 25 mls/hr Documented by: Cefazolin Sodium/Dextrose 1 gm (/ Premix) 50 mls @ 100 mls/hr IV Q8H [facility] Stop: 04/11/21 23:29 Last Admin: 04/11/21 22:18 Dose: 100 mls/hr Documented by: Ceftriaxone Sodium 1 gm/ (Sodium Chloride) 50 mls @ 100 mls/hr IV Q24H [facility] Last Admin: 04/13/21 09:10 Dose: 100 mls/hr Documented by: Lidocaine HCl (Lidocaine 1% 5 Ml Sdv) 5 ml INJECT ONETIME ONE Stop: 04/10/21 18:36 Last Admin: 04/10/21 18:55 Dose: 5 ml Documented by: Naloxone HCl (Naloxone 0.4 Mg/Ml Sdv) 0.4 mg IVPUSH Q2M PRN PRN Reason: Respiratory Distress Neostigmine Methylsulfate (Neostigmine Methylsulfate 1 Mg/Ml 5 Ml Syringe) Confirm Administered Dose 5 mg .ROUTE .STK-MED ONE Stop: 04/11/21 07:37 Ondansetron HCl (Ondansetron 4 Mg/2 Ml Sdv) Confirm Administered Dose 4 mg .ROUTE .STK-MED ONE Stop: 04/10/21 19:09 Last Admin: 04/11/21 01:15 Dose: Not Given Documented by: Ondansetron HCl (Ondansetron 4 Mg/2 Ml Sdv) Confirm Administered Dose 4 mg .ROUTE .STK-MED ONE Stop: 04/11/21 07:37 Oxycodone HCl (Oxycodone 5 Mg Tab) 5 mg PO Q4H PRN PRN Reason: Pain (moderate 4-6) Last Admin: 04/11/21 07:23 Dose: 5 mg Documented by: Potassium Chloride (Potassium Chloride 20 Meq Tab.Er) 40 meq PO ONETIME ONE Stop: 04/10/21 18:21 Last Admin: 04/10/21 18:30 Dose: 40 meq Documented by: Potassium Chloride (Potassium Chloride 20 Meq Tab.Er) 40 meq PO ONETIME ONE Stop: 04/11/21 12:16 Last Admin: 04/11/21 12:53 Dose: 40 meq Documented by: Propofol (Propofol 200 Mg/20 Ml Sdv) Confirm Administered Dose 200 mg .ROUTE .STK-MED ONE Stop: 04/11/21 07:37 Rocuronium [place] (Rocuronium 50 Mg/5 Ml Vial) Confirm Administered Dose 50 mg .ROUTE .STK-MED ONE Stop: 04/11/21 07:37 Succinylcholine Chloride (Succinylcholine 200 Mg/10 Ml Mdv) Confirm Administered Dose 200 mg .ROUTE .STK-MED ONE Stop: 04/11/21 07:37 Sugammadex Sodium (Sugammadex Sodium 200 Mg/2 Ml Vial) Confirm Administered Dose 200 mg .ROUTE .STK-MED ONE Stop: 04/11/21 09:18 Tramadol HCl (Tramadol 50 Mg Tab) 50 mg PO Q6H PRN PRN Reason: Pain (mild 1-3) Last Admin: 04/15/21 06:23 Dose: 50 mg Documented by: - Exam Quality Assessment: DVT Prophylaxis Urinary Catheter Total Time: 1Days 20Hours General: Alert, Oriented, Cooperative, Mild Distress Lungs: Clear to Auscultation, Normal Respiratory Effort Cardiovascular: Regular Rate, Regular Rhythm, No Murmurs GI/Abdominal Exam: Soft, Non-Tender, No Organomegaly, No Distention Extremities: No Pedal Edema, Other (Left hip pain) - Patient Data Result Diagrams: 04/14/21 04:10 04/12/21 04:25 Sepsis Event Note - Evaluation Sepsis Screening Result: No Definite Risk - Focused Exam Vital Signs: Vital Signs Temp Pulse Resp BP BP BP Pulse Ox 04/16/21 14:59 97.9 F 87 16 166/83 H 04/16/21 11:33 97.6 F 80 18 167/61 H 97 04/16/21 08:38 165/87 H 04/16/21 06:48 97.9 F 90 18 165/87 H 96 - Problem List Review Problem List Initiated/Reviewed/Updated: Yes - My Orders Last 24 Hours: My Active Orders 04/16/21 21:00 Metoprolol Tartrate [Lopressor] 25 mg PO BID - Plan Plan:: ASSESSMENT AND PLAN Intertrochanteric fracture of left hip-status post surgical treatment with IM nailing on 04/11. Pain well controlled. No significant issues postoperatively. -Saline lock IV -Symptomatic management of pain and nausea -Physical and Occupational Therapy -Weightbearing as tolerated Hypokalemia-improved with supplementation. Elevated blood pressures-history of hypertension, pressures have improved with addition of losartan -Losartan 50 mg p.o. daily -Add metoprolol 25 mg p.o. twice daily Possible urinary tract infection-urine culture grew out pansensitive E. coli. -Continue cephalexin Maintenance issues - - DVT prophylaxis -enoxaparin - GI prophylaxis -Protonix 40 mg daily - Nutrition -regular diet - Morrissey catheter -removed 04/12. Disposition -anticipate discharge to home, with home health care, after her hospital stay
--- NOTE | 2021-04-16 15:57 | PCM.SURGPN ---
- General Info Date of Service: 04/16/21 Date of Surgery/Procedure: 04/11/21 POD#: 5 Post-Op Diagnosis: left intertrochanteric fx Admission Diagnosis/Problem: Hip fracture requiring operative repair Functional Status: Reports: Pain Controlled, Tolerating Diet, Ambulating (with FWW), Urinating - Review of Systems General: Denies: Fever, Chills Pulmonary: Denies: Shortness of Breath Cardiovascular: Denies: Chest Pain Musculoskeletal: Reports: Leg Pain (left ), Joint Pain (left hip ) Skin: Reports: Bruising Neurological: Reports: No Symptoms Psychiatric: Reports: No Symptoms - Patient Data Vitals - Most Recent: Last Vital Signs Temp 97.9 F 04/16/21 14:59 Pulse 87 04/16/21 14:59 Resp 16 04/16/21 14:59 BP 166/83 H 04/16/21 14:59 Pulse Ox 97 04/16/21 11:33 Weight - Most Recent: 187 lb 8 oz I&O - Last 24 Hours: Intake & Output 04/16/21 04/16/21 04/16/21 06:59 14:59 22:59 Intake Total 500 780 Output Total 400 Balance 500 380 Med Orders - Current: Current Medications Acetaminophen (Acetaminophen 325 Mg Tab) 650 mg PO Q6H [facility] Last Admin: 04/16/21 13:00 Dose: 650 mg Documented by: Albuterol (Albuterol 0.083% 2.5 Mg/3 Ml Neb Soln) 2.5 mg NEB Q4H PRN PRN Reason: Shortness Of Breath/wheezing Bandage/Support Products (Nozin Nasal Wealth Management Manager) 1 applic NASBOTH BID [facility] Stop: 04/18/21 21:01 Last Admin: 04/16/21 08:37 Dose: 1 applic Documented by: Bisacodyl (Bisacodyl 5 Mg Tab) 5 mg PO DAILY PRN PRN Reason: Constipation Last Admin: 04/15/21 09:03 Dose: 5 mg Documented by: Celecoxib (Celecoxib 200 Mg Cap) 200 mg PO BID [facility] Last Admin: 04/16/21 08:39 Dose: 200 mg Documented by: Docusate Sodium (Docusate Sodium 100 Mg Cap) 100 mg PO BID [facility] Last Admin: 04/16/21 08:40 Dose: 100 mg Documented by: Enoxaparin Sodium (Enoxaparin 30 Mg/0.3 Ml Syringe) 30 mg SUBCUT DAILY [facility] Last Admin: 04/16/21 08:38 Dose: 30 mg Documented by: Lorazepam (Lorazepam 2 Mg/Ml Sdv) 1 mg IV Q6H PRN PRN Reason: Nausea/Vomiting Losartan Potassium (Losartan 50 Mg Tab) 50 mg PO DAILY [facility] Last Admin: 04/16/21 08:38 Dose: 50 mg Documented by: Magnesium Hydroxide (Magnesium Hydroxide 400 Mg/5 Ml Susp 30 Ml Cup) 30 ml PO Q6H PRN PRN Reason: Stool Softener Last Admin: 04/15/21 09:03 Dose: 30 ml Documented by: Magnesium Oxide (Magnesium Oxide 400 Mg Tab) 400 mg PO DAILY [facility] Last Admin: 04/16/21 08:39 Dose: 400 mg Documented by: Metoprolol Tartrate (Metoprolol Tartrate 25 Mg Tab) 25 mg PO BID [facility] Morphine Sulfate (Morphine 2 Mg/Ml Syringe) 1 mg IV Q1H PRN PRN Reason: Breakthrough Pain I-Throid 6.5 Mg (Ptom) 0 mg PO DAILY [facility] Last Admin: 04/16/21 08:40 Dose: Not Given Documented by: Ondansetron HCl (Ondansetron 4 Mg/2 Ml Sdv) 4 mg IVPUSH Q4H PRN PRN Reason: Nausea/Vomiting Last Admin: 04/10/21 19:12 Dose: 4 mg Documented by: Ondansetron HCl (Ondansetron 4 Mg Tab.Dis) 4 mg PO Q6H PRN PRN Reason: Nausea able to take PO Oxycodone HCl (Oxycodone 5 Mg Tab) 5 - 10 mg PO Q4H PRN PRN Reason: Pain Last Admin: 04/16/21 13:01 Dose: 5 mg Documented by: Tramadol HCl (Tramadol 50 Mg Tab) 50 mg PO Q4H PRN PRN Reason: Pain (mild 1-3) Last Admin: 04/16/21 10:00 Dose: 50 mg Documented by: Discontinued Medications Acetaminophen (Acetaminophen 325 Mg Tab) 650 mg PO Q4H PRN PRN Reason: Pain (Mild 1-3)/fever Last Admin: 04/11/21 06:28 Dose: 650 mg Documented by: Bupivacaine HCl/Epinephrine Bitart (Bupivacaine 0.5%/Epinephrine 1:200,000 30 Ml Sdv) 30 ml INJECT .STK-MED ONE Stop: 04/11/21 09:15 Last Admin: 04/11/21 09:14 Dose: 30 ml Documented by: Cephalexin (Cephalexin 250 Mg Cap) 500 mg PO BID [facility] Stop: 04/15/21 21:01 Last Admin: 04/15/21 20:03 Dose: 500 mg Documented by: Dexamethasone (Dexamethasone 4 Mg/Ml Sdv) Confirm Administered Dose 4 mg .ROUTE .STK-MED ONE Stop: 04/11/21 07:37 Docusate Sodium (Docusate Sodium 100 Mg Cap) 100 mg PO BID PRN PRN Reason: Constipation Fentanyl (Fentanyl 100 Mcg/2 Ml Sdv) 50 mcg IM ONETIME ONE Stop: 04/10/21 16:06 Last Admin: 04/10/21 16:12 Dose: 50 mcg Documented by: Fentanyl (Fentanyl 100 Mcg/2 Ml Sdv) 50 mcg IVPUSH ONETIME ONE Stop: 04/10/21 17:39 Last Admin: 04/10/21 17:54 Dose: 50 mcg Documented by: Fentanyl (Fentanyl 250 Mcg/5 Ml Sdv) Confirm Administered Dose 250 mcg .ROUTE .STK-MED ONE Stop: 04/11/21 07:36 Glycopyrrolate (Glycopyrrolate 0.2 Mg/Ml 5 Ml Mdv) Confirm Administered Dose 1 mg .ROUTE .STK-MED ONE Stop: 04/11/21 07:37 Hydromorphone HCl (Hydromorphone 1 Mg/Ml Syringe) 1 mg IVPUSH ONETIME ONE Stop: 04/10/21 18:36 Last Admin: 04/10/21 18:52 Dose: 1 mg Documented by: Hydromorphone HCl (Hydromorphone/Normal Saline 15 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) 0 mg IV ASDIRECTED PRN; Protocol PRN Reason: Pain Last Admin: 04/10/21 21:16 Dose: 15 mg Documented by: Cefazolin Sodium/Dextrose 1 gm (/ Premix) 50 mls @ 100 mls/hr IV ONETIME ONE Stop: 04/11/21 07:59 Last Admin: 04/11/21 07:58 Dose: 100 mls/hr Documented by: Potassium Chloride 20 meq/ (Premix) 100 mls @ 50 mls/hr IV ONETIME ONE Stop: 04/10/21 20:19 Last Admin: 04/10/21 18:54 Dose: 50 mls/hr Documented by: Sodium Chloride (Normal Saline) 1,000 mls @ 100 mls/hr IV ASDIRECTED [facility] Last Admin: 04/11/21 07:00 Dose: 100 mls/hr Documented by: Sodium Chloride (Normal Saline) 1,000 mls @ 125 mls/hr IV ASDIRECTED [facility] Last Infusion: 04/12/21 02:00 Dose: 25 mls/hr Documented by: Cefazolin Sodium/Dextrose 1 gm (/ Premix) 50 mls @ 100 mls/hr IV Q8H [facility] Stop: 04/11/21 23:29 Last Admin: 04/11/21 22:18 Dose: 100 mls/hr Documented by: Ceftriaxone Sodium 1 gm/ (Sodium Chloride) 50 mls @ 100 mls/hr IV Q24H [facility] Last Admin: 04/13/21 09:10 Dose: 100 mls/hr Documented by: Lidocaine HCl (Lidocaine 1% 5 Ml Sdv) 5 ml INJECT ONETIME ONE Stop: 04/10/21 18:36 Last Admin: 04/10/21 18:55 Dose: 5 ml Documented by: Naloxone HCl (Naloxone 0.4 Mg/Ml Sdv) 0.4 mg IVPUSH Q2M PRN PRN Reason: Respiratory Distress Neostigmine Methylsulfate (Neostigmine Methylsulfate 1 Mg/Ml 5 Ml Syringe) Confirm Administered Dose 5 mg .ROUTE .STK-MED ONE Stop: 04/11/21 07:37 Ondansetron HCl (Ondansetron 4 Mg/2 Ml Sdv) Confirm Administered Dose 4 mg .ROUTE .STK-MED ONE Stop: 04/10/21 19:09 Last Admin: 04/11/21 01:15 Dose: Not Given Documented by: Ondansetron HCl (Ondansetron 4 Mg/2 Ml Sdv) Confirm Administered Dose 4 mg .ROUTE .STK-MED ONE Stop: 04/11/21 07:37 Oxycodone HCl (Oxycodone 5 Mg Tab) 5 mg PO Q4H PRN PRN Reason: Pain (moderate 4-6) Last Admin: 04/11/21 07:23 Dose: 5 mg Documented by: Potassium Chloride (Potassium Chloride 20 Meq Tab.Er) 40 meq PO ONETIME ONE Stop: 04/10/21 18:21 Last Admin: 04/10/21 18:30 Dose: 40 meq Documented by: Potassium Chloride (Potassium Chloride 20 Meq Tab.Er) 40 meq PO ONETIME ONE Stop: 04/11/21 12:16 Last Admin: 04/11/21 12:53 Dose: 40 meq Documented by: Propofol (Propofol 200 Mg/20 Ml Sdv) Confirm Administered Dose 200 mg .ROUTE .STK-MED ONE Stop: 04/11/21 07:37 Rocuronium [place] (Rocuronium 50 Mg/5 Ml Vial) Confirm Administered Dose 50 mg .ROUTE .STK-MED ONE Stop: 04/11/21 07:37 Succinylcholine Chloride (Succinylcholine 200 Mg/10 Ml Mdv) Confirm Administered Dose 200 mg .ROUTE .STK-MED ONE Stop: 04/11/21 07:37 Sugammadex Sodium (Sugammadex Sodium 200 Mg/2 Ml Vial) Confirm Administered Dose 200 mg .ROUTE .STK-MED ONE Stop: 04/11/21 09:18 Tramadol HCl (Tramadol 50 Mg Tab) 50 mg PO Q6H PRN PRN Reason: Pain (mild 1-3) Last Admin: 04/15/21 06:23 Dose: 50 mg Documented by: - Exam Wound/Incisions: Healing Well, Dressing Dry and Intact, No Drainage Quality Assessment: DVT Prophylaxis General: Alert, Cooperative, No Acute Distress Extremities: Normal Capillary Refill, Pedal Edema (mild, LLE ), Leg Pain (left ), Limited Range of Motion (due to postoperative pain ). No: Zainab's Sign Skin: Dry, Intact, Ecchymosis Neurological: No New Focal Deficit Psy/Mental Status: Alert, Normal Affect, Normal Mood Sepsis Event Note - Evaluation Sepsis Screening Result: No Definite Risk - Focused Exam Vital Signs: Vital Signs Temp Pulse Resp BP BP BP Pulse Ox 04/16/21 14:59 97.9 F 87 16 166/83 H 04/16/21 11:33 97.6 F 80 18 167/61 H 97 04/16/21 08:38 165/87 H 04/16/21 06:48 97.9 F 90 18 165/87 H 96 - Problem List & Annotations (1) Status post hip surgery SNOMED Code(s): 238342466, 379708616 Code(s): Z98.890 - OTHER SPECIFIED POSTPROCEDURAL STATES Status: Acute Current Visit: Yes Annotation/Comment:: left closed reduction and intramedullary fixation (TFN) DOS: 04/11/21 (2) Postoperative anemia SNOMED Code(s): 108753086, 804261643 Code(s): D64.9 - ANEMIA, UNSPECIFIED Status: Acute Current Visit: Yes - Problem List Review Problem List Initiated/Reviewed/Updated: Yes - My Orders Last 24 Hours: Active Orders 24 hr Category Date Time Status Metoprolol Tartrate [Lopressor] Med 04/16/21 21:00 Active 25 mg PO BID Medication Orders Acetaminophen (Acetaminophen 325 Mg Tab) 650 mg PO Q6H [facility] Last Admin: 04/16/21 13:00 Dose: 650 mg Documented by: Admin: 04/16/21 05:17 Dose: 650 mg Documented by: Admin: 04/15/21 23:12 Dose: 650 mg Documented by: Admin: 04/15/21 17:29 Dose: 650 mg Documented by: Admin: 04/15/21 12:38 Dose: 650 mg Documented by: Admin: 04/15/21 06:23 Dose: 650 mg Documented by: Admin: 04/14/21 23:08 Dose: 650 mg Documented by: Admin: 04/14/21 17:16 Dose: 650 mg Documented by: Admin: 04/14/21 11:53 Dose: 650 mg Documented by: [email or web address] Admin: 04/14/21 05:59 Dose: 650 mg Documented by: Admin: 04/13/21 23:28 Dose: 650 mg Documented by: Admin: 04/13/21 17:16 Dose: 650 mg Documented by: Admin: 04/13/21 11:54 Dose: 650 mg Documented by: Admin: 04/13/21 05:59 Dose: 650 mg Documented by: Admin: 04/13/21 02:18 Dose: 650 mg Documented by: Admin: 04/12/21 17:01 Dose: 650 mg Documented by: Admin: 04/12/21 11:57 Dose: 650 mg Documented by: Admin: 04/12/21 07:46 Dose: 650 mg Documented by: Admin: 04/11/21 23:39 Dose: Not Given Documented by: Admin: 04/11/21 17:39 Dose: 650 mg Documented by: Admin: 04/11/21 11:50 Dose: 650 mg Documented by: LAURA Albuterol (Albuterol 0.083% 2.5 Mg/3 Ml Neb Soln) 2.5 mg NEB Q4H PRN PRN Reason: Shortness Of Breath/wheezing Bandage/Support Products (Nozin Nasal Wealth Management Manager) 1 applic NASBOTH BID [facility] Stop: 04/18/21 21:01 Last Admin: 04/16/21 08:37 Dose: 1 applic Documented by: Admin: 04/15/21 20:03 Dose: 1 applic Documented by: Admin: 04/15/21 09:06 Dose: 1 applic Documented by: Admin: 04/14/21 20:21 Dose: 1 applic Documented by: Admin: 04/14/21 08:02 Dose: 1 applic Documented by: Admin: 04/13/21 21:03 Dose: 1 applic Documented by: Admin: 04/13/21 09:06 Dose: 1 applic Documented by: Admin: 04/12/21 20:19 Dose: 1 applic Documented by: Admin: 04/12/21 09:03 Dose: 1 applic Documented by: Admin: 04/11/21 20:32 Dose: Not Given Documented by: JACLYN Bisacodyl (Bisacodyl 5 Mg Tab) 5 mg PO DAILY PRN PRN Reason: Constipation Last Admin: 04/15/21 09:03 Dose: 5 mg Documented by: TYRONE Celecoxib (Celecoxib 200 Mg Cap) 200 mg PO BID [facility] Last Admin: 04/16/21 08:39 Dose: 200 mg Documented by: Admin: 04/15/21 20:03 Dose: 200 mg Documented by: Admin: 04/15/21 09:03 Dose: 200 mg Documented by: TYRONE Docusate Sodium (Docusate Sodium 100 Mg Cap) 100 mg PO BID [facility] Last Admin: 04/16/21 08:40 Dose: 100 mg Documented by: Admin: 04/15/21 20:03 Dose: 100 mg Documented by: Admin: 04/15/21 09:03 Dose: 100 mg Documented by: Admin: 04/14/21 20:21 Dose: 100 mg Documented by: Admin: 04/14/21 08:02 Dose: 100 mg Documented by: Admin: 04/13/21 21:04 Dose: 100 mg Documented by: Admin: 04/13/21 09:06 Dose: 100 mg Documented by: Admin: 04/12/21 20:19 Dose: 100 mg Documented by: Admin: 04/12/21 09:02 Dose: 100 mg Documented by: Admin: 04/11/21 20:27 Dose: 100 mg Documented by: JACLYN Enoxaparin Sodium (Enoxaparin 30 Mg/0.3 Ml Syringe) 30 mg SUBCUT DAILY [facility] Last Admin: 04/16/21 08:38 Dose: 30 mg Documented by: Admin: 04/15/21 09:04 Dose: 30 mg Documented by: Admin: 04/14/21 08:02 Dose: 30 mg Documented by: Admin: 04/13/21 09:06 Dose: 30 mg Documented by: Admin: 04/12/21 09:02 Dose: 30 mg Documented by: RENE Lorazepam (Lorazepam 2 Mg/Ml Sdv) 1 mg IV Q6H PRN PRN Reason: Nausea/Vomiting Losartan Potassium (Losartan 50 Mg Tab) 50 mg PO DAILY [facility] Last Admin: 04/16/21 08:38 Dose: 50 mg Documented by: Admin: 04/15/21 09:04 Dose: 50 mg Documented by: Admin: 04/14/21 09:18 Dose: 50 mg Documented by: ANA Magnesium Hydroxide (Magnesium Hydroxide 400 Mg/5 Ml Susp 30 Ml Cup) 30 ml PO Q6H PRN PRN Reason: Stool Softener Last Admin: 04/15/21 09:03 Dose: 30 ml Documented by: Admin: 04/14/21 20:21 Dose: 30 ml Documented by: Admin: 04/14/21 07:55 Dose: 30 ml Documented by: ANA Magnesium Oxide (Magnesium Oxide 400 Mg Tab) 400 mg PO DAILY [facility] Last Admin: 04/16/21 08:39 Dose: 400 mg Documented by: Admin: 04/15/21 09:03 Dose: 400 mg Documented by: Admin: 04/14/21 08:02 Dose: 400 mg Documented by: Admin: 04/13/21 09:06 Dose: 400 mg Documented by: Admin: 04/12/21 09:02 Dose: 400 mg Documented by: RENE Metoprolol Tartrate (Metoprolol Tartrate 25 Mg Tab) 25 mg PO BID [facility] Morphine Sulfate (Morphine 2 Mg/Ml Syringe) 1 mg IV Q1H PRN PRN Reason: Breakthrough Pain I-Throid 6.5 Mg (Ptom) 0 mg PO DAILY [facility] Last Admin: 04/16/21 08:40 Dose: Not Given Documented by: Admin: 04/15/21 09:06 Dose: Not Given Documented by: Admin: 04/14/21 08:02 Dose: Not Given Documented by: Admin: 04/13/21 08:40 Dose: Not Given Documented by: Admin: 04/12/21 09:03 Dose: Not Given Documented by: RENE Ondansetron HCl (Ondansetron 4 Mg/2 Ml Sdv) 4 mg IVPUSH Q4H PRN PRN Reason: Nausea/Vomiting Last Admin: 04/10/21 19:12 Dose: 4 mg Documented by: GILBERT Ondansetron HCl (Ondansetron 4 Mg Tab.Dis) 4 mg PO Q6H PRN PRN Reason: Nausea able to take PO Oxycodone HCl (Oxycodone 5 Mg Tab) 5 - 10 mg PO Q4H PRN PRN Reason: Pain Last Admin: 04/16/21 13:01 Dose: 5 mg Documented by: Admin: 04/16/21 07:19 Dose: 5 mg Documented by: Admin: 04/15/21 02:38 Dose: 5 mg Documented by: Admin: 04/14/21 20:21 Dose: 5 mg Documented by: Admin: 04/14/21 13:38 Dose: 5 mg Documented by: Admin: 04/14/21 09:18 Dose: 5 mg Documented by: Admin: 04/13/21 04:23 Dose: 5 mg Documented by: Admin: 04/12/21 22:31 Dose: 10 mg Documented by: Admin: 04/12/21 17:37 Dose: 10 mg Documented by: Admin: 04/12/21 13:36 Dose: 5 mg Documented by: RENE Tramadol HCl (Tramadol 50 Mg Tab) 50 mg PO Q4H PRN PRN Reason: Pain (mild 1-3) Last Admin: 04/16/21 10:00 Dose: 50 mg Documented by: Admin: 04/16/21 03:01 Dose: 50 mg Documented by: Admin: 04/15/21 23:11 Dose: 50 mg Documented by: Admin: 04/15/21 19:10 Dose: 50 mg Documented by: Admin: 04/15/21 15:29 Dose: 50 mg Documented by: Admin: 04/15/21 10:46 Dose: 50 mg Documented by: TYRONE - Assessment Assessment (Free Text/Narrative):: Patient is a pleasant 80-year-old female, status post left trochanteric fixation nailing following intertrochanteric fracture, postop day #5. Patient remains hemodynamically stable at this time. Blood pressures have improved after starting Losartan, but remain slightly elevated from desired range. Tolerating regular diet well without nausea or emesis. Pain is well controlled on current regimen, does experience some increased discomfort in left hip with weightbearing activities. Patient does appear less "foggy" since discontinuing oxycodone yesterday. Patient denied left calf pain or paresthesias to left lower extremity. Has been compliant with physical therapy services daily. Ambulation abilities are progressing nicely. Ambulates up to 60 ft with four-wheel walker and x1 standby assist. Continues to require a moderate x1 assist with lifting left leg into and out of bed. Moderate assistance required with most ADLs. Plan: * Hospitalist to kindly continue medical management of this patient. * Patient to participate in physical and occupational therapy services daily to progress functional mobility of left lower extremity. * Continue with current pain control regimen. * Continue with 30 mg Lovenox for chemical DVT/VTE prophylaxis and bilateral LE SCDs for mechanical DVT/VTE prophylaxis. Will transition to BID aspirin therapy for chemical DVT/VTE prophylaxis at time of discharge. * Dressing was changed POD#2 and #4 by orthopedic provider. Able to leave dres sing off at this time, as no active drainage from incisions. Okay to shower, no submerging incisions in water (no baths). * Anticipate discharge to patients home with daughter, Brittaney, with [facility] referral tomorrow if patient remains medically stable overnight.
[2021-04-16] MEDS: Metoprolol Tartrate 25 MG Tab PO SCH (20:11)
[2021-04-17] MEDS: Acetaminophen 325 MG Tab PO SCH ×3 (00:10→11:59)
[2021-04-17] MEDS: traMADol 50 MG Tab PO PRN ×4 (02:52→15:45)
[2021-04-17] MEDS: Nozin Nasal Sanitizer NASBOTH SCH (08:43)
[2021-04-17] MEDS: [UNRECOGNIZED DRUG - OTHER] PO SCH (08:44)
[2021-04-17] MEDS: Celecoxib 200 MG Cap PO SCH (08:44)
[2021-04-17] MEDS: Docusate Sodium 100 MG Cap PO SCH (08:44)
[2021-04-17] MEDS: Magnesium Oxide 400 MG Tab PO SCH (08:44)
[2021-04-17] MEDS: Enoxaparin 30 MG/0.3 ML Syringe SUBCUT SCH (08:45)
[2021-04-17] MEDS: Losartan 50 MG Tab PO SCH (08:45)
[2021-04-17] MEDS: Metoprolol Tartrate 25 MG Tab PO SCH (08:45)
[2021-04-17] MEDS: oxyCODONE 5 MG Tab PO PRN (09:52)
--- NOTE | 2021-04-17 12:57 | PCM.SURGPN ---
- General Info Date of Service: 04/17/21 Date of Surgery/Procedure: 04/11/21 POD#: 6 Post-Op Diagnosis: left intertrochanteric fx Admission Diagnosis/Problem: Hip fracture requiring operative repair Functional Status: Reports: Pain Controlled, Tolerating Diet, Ambulating (with FWW ) - Review of Systems General: Reports: No Symptoms Musculoskeletal: Reports: Leg Pain (left ), Joint Pain (left hip ) Skin: Reports: Bruising - Patient Data Vitals - Most Recent: Last Vital Signs Temp 97.9 F 04/17/21 11:49 Pulse 64 04/17/21 11:49 Resp 16 04/17/21 11:49 BP 131/47 L 04/17/21 11:49 Pulse Ox 96 04/17/21 11:49 Weight - Most Recent: 187 lb 8 oz I&O - Last 24 Hours: Intake & Output 04/16/21 04/17/21 04/17/21 22:59 06:59 14:59 Intake Total 400 540 Balance 400 540 Med Orders - Current: Current Medications Acetaminophen (Acetaminophen 325 Mg Tab) 650 mg PO Q6H [facility] Last Admin: 04/17/21 11:59 Dose: 650 mg Documented by: Albuterol (Albuterol 0.083% 2.5 Mg/3 Ml Neb Soln) 2.5 mg NEB Q4H PRN PRN Reason: Shortness Of Breath/wheezing Bandage/Support Products (Nozin Nasal Social Science Teacher) 1 applic NASBOTH BID [facility] Stop: 04/18/21 21:01 Last Admin: 04/17/21 08:43 Dose: 1 applic Documented by: Bisacodyl (Bisacodyl 5 Mg Tab) 5 mg PO DAILY PRN PRN Reason: Constipation Last Admin: 04/15/21 09:03 Dose: 5 mg Documented by: Celecoxib (Celecoxib 200 Mg Cap) 200 mg PO BID [facility] Last Admin: 04/17/21 08:44 Dose: 200 mg Documented by: Docusate Sodium (Docusate Sodium 100 Mg Cap) 100 mg PO BID [facility] Last Admin: 04/17/21 08:44 Dose: 100 mg Documented by: Enoxaparin Sodium (Enoxaparin 30 Mg/0.3 Ml Syringe) 30 mg SUBCUT DAILY [facility] Last Admin: 04/17/21 08:45 Dose: 30 mg Documented by: Lorazepam (Lorazepam 2 Mg/Ml Sdv) 1 mg IV Q6H PRN PRN Reason: Nausea/Vomiting Losartan Potassium (Losartan 50 Mg Tab) 50 mg PO DAILY [facility] Last Admin: 04/17/21 08:45 Dose: 50 mg Documented by: Magnesium Hydroxide (Magnesium Hydroxide 400 Mg/5 Ml Susp 30 Ml Cup) 30 ml PO Q 6H PRN PRN Reason: Stool Softener Last Admin: 04/15/21 09:03 Dose: 30 ml Documented by: Magnesium Oxide (Magnesium Oxide 400 Mg Tab) 400 mg PO DAILY [facility] Last Admin: 04/17/21 08:44 Dose: 400 mg Documented by: Metoprolol Tartrate (Metoprolol Tartrate 25 Mg Tab) 25 mg PO BID [facility] Last Admin: 04/17/21 08:45 Dose: 25 mg Documented by: Morphine Sulfate (Morphine 2 Mg/Ml Syringe) 1 mg IV Q1H PRN PRN Reason: Breakthrough Pain I-Throid 6.5 Mg (Ptom) 0 mg PO DAILY [facility] Last Admin: 04/17/21 08:44 Dose: Not Given Documented by: Ondansetron HCl (Ondansetron 4 Mg/2 Ml Sdv) 4 mg IVPUSH Q4H PRN PRN Reason: Nausea/Vomiting Last Admin: 04/10/21 19:12 Dose: 4 mg Documented by: Ondansetron HCl (Ondansetron 4 Mg Tab.Dis) 4 mg PO Q6H PRN PRN Reason: Nausea able to take PO Oxycodone HCl (Oxycodone 5 Mg Tab) 5 - 10 mg PO Q4H PRN PRN Reason: Pain Last Admin: 04/17/21 09:52 Dose: 5 mg Documented by: Tramadol HCl (Tramadol 50 Mg Tab) 50 mg PO Q4H PRN PRN Reason: Pain (mild 1-3) Last Admin: 04/17/21 11:59 Dose: 50 mg Documented by: Discontinued Medications Acetaminophen (Acetaminophen 325 Mg Tab) 650 mg PO Q4H PRN PRN Reason: Pain (Mild 1-3)/fever Last Admin: 04/11/21 06:28 Dose: 650 mg Documented by: Bupivacaine HCl/Epinephrine Bitart (Bupivacaine 0.5%/Epinephrine 1:200,000 30 Ml Sdv) 30 ml INJECT .[facility] Stop: 04/11/21 09:15 Last Admin: 04/11/21 09:14 Dose: 30 ml Documented by: Cephalexin (Cephalexin 250 Mg Cap) 500 mg PO BID [facility] Stop: 04/15/21 21:01 Last Admin: 04/15/21 20:03 Dose: 500 mg Documented by: Dexamethasone (Dexamethasone 4 Mg/Ml Sdv) Confirm Administered Dose 4 mg .ROUTE .STK-MED ONE Stop: 04/11/21 07:37 Docusate Sodium (Docusate Sodium 100 Mg Cap) 100 mg PO BID PRN PRN Reason: Constipation Fentanyl (Fentanyl 100 Mcg/2 Ml Sdv) 50 mcg IM ONETIME ONE Stop: 04/10/21 16:06 Last Admin: 04/10/21 16:12 Dose: 50 mcg Documented by: Fentanyl (Fentanyl 100 Mcg/2 Ml Sdv) 50 mcg IVPUSH ONETIME ONE Stop: 04/10/21 17:39 Last Admin: 04/10/21 17:54 Dose: 50 mcg Documented by: Fentanyl (Fentanyl 250 Mcg/5 Ml Sdv) Confirm Administered Dose 250 mcg .ROUTE .STK-MED ONE Stop: 04/11/21 07:36 Glycopyrrolate (Glycopyrrolate 0.2 Mg/Ml 5 Ml Mdv) Confirm Administered Dose 1 mg .ROUTE .STK-MED ONE Stop: 04/11/21 07:37 Hydromorphone HCl (Hydromorphone 1 Mg/Ml Syringe) 1 mg IVPUSH ONETIME ONE Stop: 04/10/21 18:36 Last Admin: 04/10/21 18:52 Dose: 1 mg Documented by: Hydromorphone HCl (Hydromorphone/Normal Saline 15 Mg/30 Ml Cargo Inspector) 0 mg IV ASDIRECTED PRN; Protocol PRN Reason: Pain Last Admin: 04/10/21 21:16 Dose: 15 mg Documented by: Cefazolin Sodium/Dextrose 1 gm (/ Premix) 50 mls @ 100 mls/hr IV ONETIME ONE Stop: 04/11/21 07:59 Last Admin: 04/11/21 07:58 Dose: 100 mls/hr Documented by: Potassium Chloride 20 meq/ (Premix) 100 mls @ 50 mls/hr IV ONETIME ONE Stop: 04/10/21 20:19 Last Admin: 04/10/21 18:54 Dose: 50 mls/hr Documented by: Sodium Chloride (Normal Saline) 1,000 mls @ 100 mls/hr IV ASDIRECTED [facility] Last Admin: 04/11/21 07:00 Dose: 100 mls/hr Documented by: Sodium Chloride (Normal Saline) 1,000 mls @ 125 mls/hr IV ASDIRECTED [facility] Last Infusion: 04/12/21 02:00 Dose: 25 mls/hr Documented by: Cefazolin Sodium/Dextrose 1 gm (/ Premix) 50 mls @ 100 mls/hr IV Q8H [facility] Stop: 04/11/21 23:29 Last Admin: 04/11/21 22:18 Dose: 100 mls/hr Documented by: Ceftriaxone Sodium 1 gm/ (Sodium Chloride) 50 mls @ 100 mls/hr IV Q24H [facility] Last Admin: 04/13/21 09:10 Dose: 100 mls/hr Documented by: Lidocaine HCl (Lidocaine 1% 5 Ml Sdv) 5 ml INJECT ONETIME ONE Stop: 04/10/21 18:36 Last Admin: 04/10/21 18:55 Dose: 5 ml Documented by: Naloxone HCl (Naloxone 0.4 Mg/Ml Sdv) 0.4 mg IVPUSH Q2M PRN PRN Reason: Respiratory Distress Neostigmine Methylsulfate (Neostigmine Methylsulfate 1 Mg/Ml 5 Ml Syringe) Confirm Administered Dose 5 mg .ROUTE .STK-MED ONE Stop: 04/11/21 07:37 Ondansetron HCl (Ondansetron 4 Mg/2 Ml Sdv) Confirm Administered Dose 4 mg .ROUTE .STK-MED ONE Stop: 04/10/21 19:09 Last Admin: 04/11/21 01:15 Dose: Not Given Documented by: Ondansetron HCl (Ondansetron 4 Mg/2 Ml Sdv) Confirm Administered Dose 4 mg .ROUTE .STK-MED ONE Stop: 04/11/21 07:37 Oxycodone HCl (Oxycodone 5 Mg Tab) 5 mg PO Q4H PRN PRN Reason: Pain (moderate 4-6) Last Admin: 04/11/21 07:23 Dose: 5 mg Documented by: Potassium Chloride (Potassium Chloride 20 Meq Tab.Er) 40 meq PO ONETIME ONE Stop: 04/10/21 18:21 Last Admin: 04/10/21 18:30 Dose: 40 meq Documented by: Potassium Chloride (Potassium Chloride 20 Meq Tab.Er) 40 meq PO ONETIME ONE Stop: 04/11/21 12:16 Last Admin: 04/11/21 12:53 Dose: 40 meq Documented by: Propofol (Propofol 200 Mg/20 Ml Sdv) Confirm Administered Dose 200 mg .ROUTE .STK-MED ONE Stop: 04/11/21 07:37 Rocuronium [place] (Rocuronium 50 Mg/5 Ml Vial) Confirm Administered Dose 50 mg .ROUTE .STK-MED ONE Stop: 04/11/21 07:37 Succinylcholine Chloride (Succinylcholine 200 Mg/10 Ml Mdv) Confirm Administered Dose 200 mg .ROUTE .STK-MED ONE Stop: 04/11/21 07:37 Sugammadex Sodium (Sugammadex Sodium 200 Mg/2 Ml Vial) Confirm Administered Dose 200 mg .ROUTE .STK-MED ONE Stop: 04/11/21 09:18 Tramadol HCl (Tramadol 50 Mg Tab) 50 mg PO Q6H PRN PRN Reason: Pain (mild 1-3) Last Admin: 04/15/21 06:23 Dose: 50 mg Documented by: - Exam Wound/Incisions: Healing Well, Dressing Dry and Intact, No Drainage General: Alert, Oriented, Cooperative, No Acute Distress Extremities: Normal Capillary Refill, Pedal Edema, Leg Pain (left ), Limited Range of Motion. No: Zainba's Sign Skin: Dry, Intact, Ecchymosis Neurological: No New Focal Deficit Psy/Mental Status: Alert, Normal Affect, Normal Mood Sepsis Event Note - Evaluation Sepsis Screening Result: No Definite Risk - Focused Exam Vital Signs: Vital Signs Temp Pulse Pulse Resp BP BP Pulse Ox 04/17/21 11:49 97.9 F 64 16 131/47 L 96 04/17/21 08:45 79 180/73 H 04/17/21 07:19 97.9 F 79 16 180/73 H 95 04/17/21 03:00 97.9 F 63 16 161/68 H 94 L - Problem List & Annotations (1) Status post hip surgery SNOMED Code(s): 625842360, 162605118 Code(s): Z98.890 - OTHER SPECIFIED POSTPROCEDURAL STATES Status: Acute Current Visit: Yes Annotation/Comment:: left closed reduction and intramedullary fixation (TFN) DOS: 04/11/21 (2) Postoperative anemia SNOMED Code(s): 118227530, 250570186 Code(s): D64.9 - ANEMIA, UNSPECIFIED Status: Acute Current Visit: Yes - Problem List Review Problem List Initiated/Reviewed/Updated: Yes - My Orders Last 24 Hours: Active Orders 24 hr Category Date Time Status Metoprolol Tartrate [Lopressor] Med 04/16/21 21:00 Active 25 mg PO BID Medication Orders Acetaminophen (Acetaminophen 325 Mg Tab) 650 mg PO Q6H [facility] Admin: 04/17/21 11:59 Dose: 650 mg Documented by: Admin: 04/17/21 05:49 Dose: 650 mg Documented by: Admin: 04/17/21 00:10 Dose: 650 mg Documented by: Admin: 04/16/21 17:41 Dose: 650 mg Documented by: Admin: 04/16/21 13:00 Dose: 650 mg Documented by: Admin: 04/16/21 05:17 Dose: 650 mg Documented by: Admin: 04/15/21 23:12 Dose: 650 mg Documented by: Admin: 04/15/21 17:29 Dose: 650 mg Documented by: Admin: 04/15/21 12:38 Dose: 650 mg Documented by: Admin: 04/15/21 06:23 Dose: 650 mg Documented by: Admin: 04/14/21 23:08 Dose: 650 mg Documented by: Admin: 04/14/21 17:16 Dose: 650 mg Documented by: Admin: 04/14/21 11:53 Dose: 650 mg Documented by: Admin: 04/14/21 05:59 Dose: 650 mg Documented by: Admin: 04/13/21 23:28 Dose: 650 mg Documented by: Admin: 04/13/21 17:16 Dose: 650 mg Documented by: Admin: 04/13/21 11:54 Dose: 650 mg Documented by: Admin: 04/13/21 05:59 Dose: 650 mg Documented by: Admin: 04/13/21 02:18 Dose: 650 mg Documented by: Admin: 04/12/21 17:01 Dose: 650 mg Documented by: Admin: 04/12/21 11:57 Dose: 650 mg Documented by: Admin: 04/12/21 07:46 Dose: 650 mg Documented by: Admin: 04/11/21 23:39 Dose: Not Given Documented by: Admin: 04/11/21 17:39 Dose: 650 mg Documented by: Admin: 04/11/21 11:50 Dose: 650 mg Documented by: LAURA Albuterol (Albuterol 0.083% 2.5 Mg/3 Ml Neb Soln) 2.5 mg NEB Q4H PRN PRN Reason: Shortness Of Breath/wheezing Bandage/Support Products (Nozin Nasal Social Science Teacher) 1 applic NASBOTH BID [facility] Stop: 04/18/21 21:01 Last Admin: 04/17/21 08:43 Dose: 1 applic Documented by: Admin: 04/16/21 20:15 Dose: 1 applic Documented by: Admin: 04/16/21 08:37 Dose: 1 applic Documented by: Admin: 04/15/21 20:03 Dose: 1 applic Documented by: Admin: 04/15/21 09:06 Dose: 1 applic Documented by: Admin: 04/14/21 20:21 Dose: 1 applic Documented by: Admin: 04/14/21 08:02 Dose: 1 applic Documented by: Admin: 04/13/21 21:03 Dose: 1 applic Documented by: Admin: 04/13/21 09:06 Dose: 1 applic Documented by: Admin: 04/12/21 20:19 Dose: 1 applic Documented by: Admin: 04/12/21 09:03 Dose: 1 applic Documented by: Admin: 04/11/21 20:32 Dose: Not Given Documented by: JACLYN Bisacodyl (Bisacodyl 5 Mg Tab) 5 mg PO DAILY PRN PRN Reason: Constipation Last Admin: 04/15/21 09:03 Dose: 5 mg Documented by: TYRONE Celecoxib (Celecoxib 200 Mg Cap) 200 mg PO BID [facility] Last Admin: 12/09/21 08:44 Dose: 200 mg Documented by: Admin: 04/16/21 20:11 Dose: 200 mg Documented by: Admin: 04/16/21 08:39 Dose: 200 mg Documented by: Admin: 04/15/21 20:03 Dose: 200 mg Documented by: Admin: 04/15/21 09:03 Dose: 200 mg Documented by: TYRONE Docusate Sodium (Docusate Sodium 100 Mg Cap) 100 mg PO BID [facility] Admin: 04/17/21 08:44 Dose: 100 mg Documented by: Admin: 04/16/21 20:11 Dose: 100 mg Documented by: Admin: 04/16/21 08:40 Dose: 100 mg Documented by: Admin: 04/15/21 20:03 Dose: 100 mg Documented by: Admin: 04/15/21 09:03 Dose: 100 mg Documented by: Admin: 04/14/21 20:21 Dose: 100 mg Documented by: Admin: 04/14/21 08:02 Dose: 100 mg Documented by: Admin: 04/13/21 21:04 Dose: 100 mg Documented by: Admin: 04/13/21 09:06 Dose: 100 mg Documented by: Admin: 04/12/21 20:19 Dose: 100 mg Documented by: Admin: 04/12/21 09:02 Dose: 100 mg Documented by: Admin: 04/11/21 20:27 Dose: 100 mg Documented by: JACLYN Enoxaparin Sodium (Enoxaparin 30 Mg/0.3 Ml Syringe) 30 mg SUBCUT DAILY [facility] Admin: 04/17/21 08:45 Dose: 30 mg Documented by: Admin: 04/16/21 08:38 Dose: 30 mg Documented by: Admin: 04/15/21 09:04 Dose: 30 mg Documented by: Admin: 04/14/21 08:02 Dose: 30 mg Documented by: Admin: 04/13/21 09:06 Dose: 30 mg Documented by: Admin: 04/12/21 09:02 Dose: 30 mg Documented by: RENE Lorazepam (Lorazepam 2 Mg/Ml Sdv) 1 mg IV Q6H PRN PRN Reason: Nausea/Vomiting Losartan Potassium (Losartan 50 Mg Tab) 50 mg PO DAILY [facility] Last Admin: 04/17/21 08:45 Dose: 50 mg Documented by: Admin: 04/16/21 08:38 Dose: 50 mg Documented by: Admin: 04/15/21 09:04 Dose: 50 mg Documented by: Admin: 04/14/21 09:18 Dose: 50 mg Documented by: ANA Magnesium Hydroxide (Magnesium Hydroxide 400 Mg/5 Ml Susp 30 Ml Cup) 30 ml PO Q6H PRN PRN Reason: Stool Softener Last Admin: 04/15/21 09:03 Dose: 30 ml Documented by: Admin: 04/14/21 20:21 Dose: 30 ml Documented by: Admin: 04/14/21 07:55 Dose: 30 ml Documented by: ANA Magnesium Oxide (Magnesium Oxide 400 Mg Tab) 400 mg PO DAILY [facility] Last Admin: 04/17/21 08:44 Dose: 400 mg Documented by: Admin: 04/16/21 08:39 Dose: 400 mg Documented by: Admin: 04/15/21 09:03 Dose: 400 mg Documented by: Admin: 04/14/21 08:02 Dose: 400 mg Documented by: Admin: 04/13/21 09:06 Dose: 400 mg Documented by: Admin: 04/12/21 09:02 Dose: 400 mg Documented by: RENE Metoprolol Tartrate (Metoprolol Tartrate 25 Mg Tab) 25 mg PO BID [facility] Last Admin: 04/17/21 08:45 Dose: 25 mg Documented by: Admin: 04/16/21 20:11 Dose: 25 mg Documented by: AVRIL Morphine Sulfate (Morphine 2 Mg/Ml Syringe) 1 mg IV Q1H PRN PRN Reason: Breakthrough Pain I-Throid 6.5 Mg (Ptom) 0 mg PO DAILY [facility] Last Admin: 04/17/21 08:44 Dose: Not Given Documented by: Admin: 04/16/21 08:40 Dose: Not Given Documented by: Admin: 04/15/21 09:06 Dose: Not Given Documented by: Admin: 04/14/21 08:02 Dose: Not Given Documented by: Admin: 04/13/21 08:40 Dose: Not Given Documented by: Admin: 04/12/21 09:03 Dose: Not Given Documented by: RENE Ondansetron HCl (Ondansetron 4 Mg/2 Ml Sdv) 4 mg IVPUSH Q4H PRN PRN Reason: Nausea/Vomiting Last Admin: 04/10/21 19:12 Dose: 4 mg Documented by: GILBERT Ondansetron HCl (Ondansetron 4 Mg Tab.Dis) 4 mg PO Q6H PRN PRN Reason: Nausea able to take PO Oxycodone HCl (Oxycodone 5 Mg Tab) 5 - 10 mg PO Q4H PRN PRN Reason: Pain Last Admin: 04/17/21 09:52 Dose: 5 mg Documented by: Admin: 04/16/21 21:26 Dose: 5 mg Documented by: Admin: 04/16/21 13:01 Dose: 5 mg Documented by: Admin: 04/16/21 07:19 Dose: 5 mg Documented by: Admin: 04/15/21 02:38 Dose: 5 mg Documented by: Admin: 04/14/21 20:21 Dose: 5 mg Documented by: Admin: 04/14/21 13:38 Dose: 5 mg Documented by: Admin: 04/14/21 09:18 Dose: 5 mg Documented by: Admin: 04/13/21 04:23 Dose: 5 mg Documented by: Admin: 04/12/21 22:31 Dose: 10 mg Documented by: Admin: 04/12/21 17:37 Dose: 10 mg Documented by: Admin: 04/12/21 13:36 Dose: 5 mg Documented by: RENE Tramadol HCl (Tramadol 50 Mg Tab) 50 mg PO Q4H PRN PRN Reason: Pain (mild 1-3) Last Admin: 04/17/21 11:59 Dose: 50 mg Documented by: Admin: 04/17/21 08:04 Dose: 50 mg Documented by: [email or web address] Admin: 04/17/21 02:52 Dose: 50 mg Documented by: Admin: 04/16/21 20:12 Dose: 50 mg Documented by: Admin: 04/16/21 16:33 Dose: 50 mg Documented by: Admin: 04/16/21 10:00 Dose: 50 mg Documented by: Admin: 04/16/21 03:01 Dose: 50 mg Documented by: Admin: 04/15/21 23:11 Dose: 50 mg Documented by: Admin: 04/15/21 19:10 Dose: 50 mg Documented by: Admin: 04/15/21 15:29 Dose: 50 mg Documented by: Admin: 04/15/21 10:46 Dose: 50 mg Documented by: TYRONE - Assessment Assessment (Free Text/Narrative):: Patient is a pleasant 80-year-old female, status post left trochanteric fixation nailing following intertrochanteric fracture, postop day #6. Patient remains hemodynamically stable at this time. Blood pressures have improved significantly since starting Losartan and Metoprolol. Tolerating regular diet well without nausea or emesis. Pain is well controlled on current regimen. Does have increased discomfort in left hip with weightbearing activities, as to be expected in the post-operative period. Patient denied left calf pain or paresthesias to left lower extremity. Has been compliant with physical therapy services daily. Ambulation abilities are progressing nicely. Ambulated up to 60 ft with four-wheel walker and x1 standby assist. Continues to require a moderate x1 assist with lifting left leg into and out of bed. Moderate assistance required with most ADLs. Plan: * Hospitalist to kindly continue medical management of this patient. * Continue with 30 mg Lovenox for chemical DVT/VTE prophylaxis and bilateral LE SCDs for mechanical DVT/VTE prophylaxis. Will transition to BID aspirin therapy for chemical DVT/VTE prophylaxis at time of discharge. * Encouraged scheduled Tylenol, scheduled Celebrex, and prn Tramadol for pain control upon discharge. * Able to leave dressing off at this time, as no active drainage from incisions. Okay to shower, no submerging incisions in water (no baths). * Anticipate discharge to patients home with daughter, Brittaney, with home health services referral this afternoon. * Will return to orthopedic clinic in 2 weeks for surgical follow up. * Patient to follow up with PCP to address ongoing hypertension management.
--- NOTE | 2021-04-17 13:41 | PCM.DCSUM1 ---
Discharge Summary - Hospital Course Brief History: Ms. Grimaldo is an 80-year-old woman who was admitted through the emergency department, who fell at [facility] and noted pain in her left hip. On evaluation in the emergency department she was found to have a left hip fracture. - Discharge Data Discharge Date: 04/17/21 Discharge Disposition: Home, Self-Care 01 Condition: Fair - Referral to Home Health Primary Care Physician: Lanre Carroll MD - Discharge Diagnosis/Problem(s) (1) Status post hip surgery SNOMED Code(s): 842618991, [id number] ICD Code: Z98.890 - OTHER SPECIFIED POSTPROCEDURAL STATES Status: Acute Current Visit: Yes Problem Details: left closed reduction and intramedullary fixation (TFN) DOS: 04/11/21 (2) Postoperative anemia SNOMED Code(s): 106534031, 011787130 ICD Code: D64.9 - ANEMIA, UNSPECIFIED Status: Acute Current Visit: Yes (3) Intertrochanteric fracture of left hip SNOMED Code(s): 723182696, [id number] ICD Code: S72.142A - DISPLACED INTERTROCHANTERIC FRACTURE OF LEFT FEMUR, INIT Status: Acute Priority: High Current Visit: Yes Qualifiers: Encounter type: initial encounter Fracture type: closed Fracture alignment: displaced Qualified Code(s): S72.142A - Displaced intertrochanteric fracture of left femur, initial encounter for closed fracture (4) Hypokalemia SNOMED Code(s): 97767557 ICD Code: E87.6 - HYPOKALEMIA Status: Acute Priority: High Current Visit: Yes (5) Benign essential hypertension SNOMED Code(s): 1897239 ICD Code: I10 - ESSENTIAL (PRIMARY) HYPERTENSION Status: Chronic Current Visit: No - Patient Summary/Data Consults: Consultations 04/10/21 20:32 Consult to Spiritual Care [CONS] Routine OT Evaluation and Treatment [CONS] Routine Please Evaluate and Treat. OT Reason for Consult: ADL's Special Instructions: LT hip fx- orif 04/11/2021 This query below is only for informational purposes and is not editable. PT Evaluation and Treatment [CONS] Routine Please Evaluate and Treat. PT Reason for Consult: Post op Ortho Surgery Special Instructions: lt hip fx- ORIF 04/11/2021 This query below is only for informational purposes and is not editable. 04/11/21 09:24 PT Evaluation and Treatment [CONS] Routine Please Evaluate and Treat. PT Reason for Consult: Ambulation Discharge Disposition: Home w Home Health Special Instructions: WBAT This query below is only for informational purposes and is not editable. Admission Diagnosis/Problem: Hip fracture requiring operative repair 04/11/21 09:25 Consult to Case Management/[employer] [CONS] Routine Comment: Physician Instructions: Discharge placement post hip surgery Service(s) to be Consulted: Case Management PT Evaluation and Treatment [CONS] Routine Please Evaluate and Treat. PT Reason for Consult: Post op Ortho Surgery Hip Pending Discharge: Yes, 2- -3 days Special Instructions: Schedule first outpatient P.T. appointment 3 - 5 days post discharge This query below is only for informational purposes and is not editable. Admission Diagnosis/Problem: Hip fracture requiring operative repair Hospital Course: Ms. Wang is an 80-year-old woman who was admitted through the emergency department with left hip pain secondary to an intertrochanteric fracture of the left hip. On 10 April she fell at [facility] but was able to get herself up and get home where she fell again. She was brought into the emergency department and on evaluation was found to have a left hip fracture. She was admitted to the hospital and given IV fluids for hydration as well as pain and nausea medications. She was seen on the by Dr. Barone and was taken to the operating room for repair of her hip fracture. Following surgery she was seen daily by physical therapy. She did well during her postoperative course and by the time of discharge was able to ambulate with use of a walker as well as transfer with only minimal assistance. She was noted to have significant hypertension during her hospital stay and was started on antihypertensive therapy. She will be discharged home with the medications including losartan 50 mg once daily and metoprolol tartrate 12.5 mg twice daily. She did become confused with stronger pain medications and will be discharged home on tramadol every 4 hours as needed and as well as a 10-day course of nonsteroidal therapy with Celebrex. Activity will be as tolerated, she should use a walker for ambulation. She will resume her usual diet. Home care services including home physical therapy and Occupational Therapy will be arranged for her after discharge. Follow-up appointment should be scheduled with Dr. Barone as well as with her primary care provider for ongoing monitoring of her hypertension. - Patient Instructions Diet: Usual Diet as Tolerated Activity: As Tolerated Other/Special Instructions: Please arrange for home care services including home physical therapy and Occupational Therapy. Please schedule follow-up appointment with Dr. Barone. Please schedule follow-up appointment with primary care provider for ongoing management of hypertension. - Discharge Plan *PRESCRIPTION DRUG MONITORING PROGRAM REVIEWED*: Not Applicable *COPY OF PRESCRIPTION DRUG MONITORING REPORT IN PATIENT ANDRA: Not Applicable Prescriptions/Med Rec: Celecoxib [CeleBREX] 200 mg PO BID #20 cap Losartan [Cozaar] 50 mg PO DAILY #30 tablet Metoprolol Tartrate [Lopressor] 12.5 mg PO Q12HR #30 tab traMADol [Ultram] 50 mg PO Q4H PRN #30 tablet PRN Reason: Pain Home Medications: Home Meds [place]-3 Fatty Acids [[place]-3] 1,000 mg PO DAILY 08/09/13 [History] *I-Throid 6.5 mg PO DAILY 01/13/15 [History] *Neuro Methylation Cream 1 inch TOP DAILY 01/13/15 [History] L.acidoph,Paracasei, B.lactis [Probiotic] 1 cap PO DAILY 01/13/15 [History] Magnesium Citrate 1 cap PO DAILY 01/13/15 [History] Medium Chain Triglycerides [MCT Oil] 1 tsp PO DAILY 01/13/15 [History] Ibuprofen 200 mg PO Q6H PRN 04/10/21 [History] Ubidecarenone [Coq10] 100 mg PO 1800 04/10/21 [History] Celecoxib [CeleBREX] 200 mg PO BID #20 cap 04/17/21 [Rx] Losartan [Cozaar] 50 mg PO DAILY #30 tablet 04/17/21 [Rx] Metoprolol Tartrate [Lopressor] 12.5 mg PO Q12HR #30 tab 04/17/21 [Rx] traMADol [Ultram] 50 mg PO Q4H PRN #30 tablet 04/17/21 [Rx] Referrals: Lanre Carroll MD [Primary Care Provider] - 04/24/21 10:45 am (Please arrive 15 minutes early to register for your appointment. Blood pressure check and evaluate blood pressure medications.) Isaias Barone MD [Physician] - 04/24/21 9:45 am (Please register 15 minutes early for your appointment. [place] at the ER desk.) - Discharge Summary/Plan Comment DC Time >30 min.: No Total # of Minutes for Discharge Time: 20 - Patient Data Vitals - Most Recent: Last Vital Signs Temp 97.9 F 04/17/21 11:49 Pulse 64 04/17/21 11:49 Resp 16 04/17/21 11:49 BP 131/47 L 04/17/21 11:49 Pulse Ox 96 04/17/21 11:49 Weight - Most Recent: 187 lb 8 oz I&O - Last 24 hours: Intake & Output 04/16/21 04/17/21 04/17/21 22:59 06:59 14:59 Intake Total 400 540 Balance 400 540 Med Orders - Current: Current Medications Acetaminophen (Acetaminophen 325 Mg Tab) 650 mg PO Q6H [facility] Last Admin: 04/17/21 11:59 Dose: 650 mg Documented by: Albuterol (Albuterol 0.083% 2.5 Mg/3 Ml Neb Soln) 2.5 mg NEB Q4H PRN PRN Reason: Shortness Of Breath/wheezing Bandage/Support Products ([employer]) 1 applic NASBOTH BID [facility] Stop: 04/18/21 21:01 Last Admin: 04/17/21 08:43 Dose: 1 applic Documented by: Bisacodyl (Bisacodyl 5 Mg Tab) 5 mg PO DAILY PRN PRN Reason: Constipation Last Admin: 04/15/21 09:03 Dose: 5 mg Documented by: Celecoxib (Celecoxib 200 Mg Cap) 200 mg PO BID [facility] Last Admin: 04/17/21 08:44 Dose: 200 mg Documented by: Docusate Sodium (Docusate Sodium 100 Mg Cap) 100 mg PO BID [facility] Last Admin: 04/17/21 08:44 Dose: 100 mg Documented by: Enoxaparin Sodium (Enoxaparin 30 Mg/0.3 Ml Syringe) 30 mg SUBCUT DAILY [facility] Last Admin: 04/17/21 08:45 Dose: 30 mg Documented by: Lorazepam (Lorazepam 2 Mg/Ml Sdv) 1 mg IV Q6H PRN PRN Reason: Nausea/Vomiting Losartan Potassium (Losartan 50 Mg Tab) 50 mg PO DAILY [facility] Last Admin: 04/17/21 08:45 Dose: 50 mg Documented by: Magnesium Hydroxide (Magnesium Hydroxide 400 Mg/5 Ml Susp 30 Ml Cup) 30 ml PO Q6H PRN PRN Reason: Stool Softener Last Admin: 04/15/21 09:03 Dose: 30 ml Documented by: Magnesium Oxide (Magnesium Oxide 400 Mg Tab) 400 mg PO DAILY [facility] Last Admin: 04/17/21 08:44 Dose: 400 mg Documented by: Metoprolol Tartrate (Metoprolol Tartrate 25 Mg Tab) 25 mg PO BID [facility] Last Admin: 04/17/21 08:45 Dose: 25 mg Documented by: Morphine Sulfate (Morphine 2 Mg/Ml Syringe) 1 mg IV Q1H PRN PRN Reason: Breakthrough Pain I-Throid 6.5 Mg (Ptom) 0 mg PO DAILY [facility] Last Admin: 04/17/21 08:44 Dose: Not Given Documented by: Ondansetron HCl (Ondansetron 4 Mg/2 Ml Sdv) 4 mg IVPUSH Q4H PRN PRN Reason: Nausea/Vomiting Last Admin: 04/10/21 19:12 Dose: 4 mg Documented by: Ondansetron HCl (Ondansetron 4 Mg Tab.Dis) 4 mg PO Q6H PRN PRN Reason: Nausea able to take PO Oxycodone HCl (Oxycodone 5 Mg Tab) 5 - 10 mg PO Q4H PRN PRN Reason: Pain Last Admin: 04/17/21 09:52 Dose: 5 mg Documented by: Tramadol HCl (Tramadol 50 Mg Tab) 50 mg PO Q4H PRN PRN Reason: Pain (mild 1-3) Last Admin: 04/17/21 11:59 Dose: 50 mg Documented by: Discontinued Medications Acetaminophen (Acetaminophen 325 Mg Tab) 650 mg PO Q4H PRN PRN Reason: Pain (Mild 1-3)/fever Last Admin: 04/11/21 06:28 Dose: 650 mg Documented by: Bupivacaine HCl/Epinephrine Bitart (Bupivacaine 0.5%/Epinephrine 1:200,000 30 Ml Sdv) 30 ml INJECT .STK-MED ONE Stop: 04/11/21 09:15 Last Admin: 04/11/21 09:14 Dose: 30 ml Documented by: Cephalexin (Cephalexin 250 Mg Cap) 500 mg PO BID [facility] Stop: 04/15/21 21:01 Last Admin: 04/15/21 20:03 Dose: 500 mg Documented by: Dexamethasone (Dexamethasone 4 Mg/Ml Sdv) Confirm Administered Dose 4 mg .ROUTE .STK-MED ONE Stop: 04/11/21 07:37 Docusate Sodium (Docusate Sodium 100 Mg Cap) 100 mg PO BID PRN PRN Reason: Constipation Fentanyl (Fentanyl 100 Mcg/2 Ml Sdv) 50 mcg IM ONETIME ONE Stop: 04/10/21 16:06 Last Admin: 04/10/21 16:12 Dose: 50 mcg Documented by: Fentanyl (Fentanyl 100 Mcg/2 Ml Sdv) 50 mcg IVPUSH ONETIME ONE Stop: 04/10/21 17:39 Last Admin: 04/10/21 17:54 Dose: 50 mcg Documented by: Fentanyl (Fentanyl 250 Mcg/5 Ml Sdv) Confirm Administered Dose 250 mcg .ROUTE .STK-MED ONE Stop: 04/11/21 07:36 Glycopyrrolate (Glycopyrrolate 0.2 Mg/Ml 5 Ml Mdv) Confirm Administered Dose 1 mg .ROUTE .STK-MED ONE Stop: 04/11/21 07:37 Hydromorphone HCl (Hydromorphone 1 Mg/Ml Syringe) 1 mg IVPUSH ONETIME ONE Stop: 04/10/21 18:36 Last Admin: 04/10/21 18:52 Dose: 1 mg Documented by: Hydromorphone HCl (Hydromorphone/Normal Saline 15 Mg/30 Ml [place]) 0 mg IV ASDIRECTED PRN; Protocol PRN Reason: Pain Last Admin: 04/10/21 21:16 Dose: 15 mg Documented by: Cefazolin Sodium/Dextrose 1 gm (/ Premix) 50 mls @ 100 mls/hr IV ONETIME ONE Stop: 04/11/21 07:59 Last Admin: 04/11/21 07:58 Dose: 100 mls/hr Documented by: Potassium Chloride 20 meq/ (Premix) 100 mls @ 50 mls/hr IV ONETIME ONE Stop: 04/10/21 20:19 Last Admin: 04/10/21 18:54 Dose: 50 mls/hr Documented by: Sodium Chloride (Normal Saline) 1,000 mls @ 100 mls/hr IV ASDIRECTED LAYO Last Admin: 04/11/21 07:00 Dose: 100 mls/hr Documented by: Sodium Chloride (Normal Saline) 1,000 mls @ 125 mls/hr IV ASDIRECTED [facility] Last Infusion: 04/12/21 02:00 Dose: 25 mls/hr Documented by: Cefazolin Sodium/Dextrose 1 gm (/ Premix) 50 mls @ 100 mls/hr IV Q8H [facility] Stop: 04/11/21 23:29 Last Admin: 04/11/21 22:18 Dose: 100 mls/hr Documented by: Ceftriaxone Sodium 1 gm/ (Sodium Chloride) 50 mls @ 100 mls/hr IV Q24H [facility] Last Admin: 04/13/21 09:10 Dose: 100 mls/hr Documented by: Lidocaine HCl (Lidocaine 1% 5 Ml Sdv) 5 ml INJECT ONETIME ONE Stop: 04/10/21 18:36 Last Admin: 04/10/21 18:55 Dose: 5 ml Documented by: Naloxone HCl (Naloxone 0.4 Mg/Ml Sdv) 0.4 mg IVPUSH Q2M PRN PRN Reason: Respiratory Distress Neostigmine Methylsulfate (Neostigmine Methylsulfate 1 Mg/Ml 5 Ml Syringe) Confirm Administered Dose 5 mg .ROUTE .STK-MED ONE Stop: 04/11/21 07:37 Ondansetron HCl (Ondansetron 4 Mg/2 Ml Sdv) Confirm Administered Dose 4 mg .ROUTE .STK-MED ONE Stop: 04/10/21 19:09 Last Admin: 04/11/21 01:15 Dose: Not Given Documented by: Ondansetron HCl (Ondansetron 4 Mg/2 Ml Sdv) Confirm Administered Dose 4 mg .ROUTE .STK-MED ONE Stop: 04/11/21 07:37 Oxycodone HCl (Oxycodone 5 Mg Tab) 5 mg PO Q4H PRN PRN Reason: Pain (moderate 4-6) Last Admin: 04/11/21 07:23 Dose: 5 mg Documented by: Potassium Chloride (Potassium Chloride 20 Meq Tab.Er) 40 meq PO ONETIME ONE Stop: 04/10/21 18:21 Last Admin: 04/10/21 18:30 Dose: 40 meq Documented by: Potassium Chloride (Potassium Chloride 20 Meq Tab.Er) 40 meq PO ONETIME ONE Stop: 04/11/21 12:16 Last Admin: 04/11/21 12:53 Dose: 40 meq Documented by: Propofol (Propofol 200 Mg/20 Ml Sdv) Confirm Administered Dose 200 mg .ROUTE .STK-MED ONE Stop: 04/11/21 07:37 Rocuronium Cylinder (Rocuronium 50 Mg/5 Ml Vial) Confirm Administered Dose 50 mg .ROUTE .STK-MED ONE Stop: 04/11/21 07:37 Succinylcholine Chloride (Succinylcholine 200 Mg/10 Ml Mdv) Confirm Administered Dose 200 mg .ROUTE .STK-MED ONE Stop: 04/11/21 07:37 Sugammadex Sodium (Sugammadex Sodium 200 Mg/2 Ml Vial) Confirm Administered Dose 200 mg .ROUTE .STK-MED ONE Stop: 04/11/21 09:18 Tramadol HCl (Tramadol 50 Mg Tab) 50 mg PO Q6H PRN PRN Reason: Pain (mild 1-3) Last Admin: 04/15/21 06:23 Dose: 50 mg Documented by: - Exam General: Reports: Alert, Oriented, Cooperative, Mild Distress Lungs: Reports: Clear to Auscultation, Normal Respiratory Effort Cardiovascular: Reports: Regular Rate, Regular Rhythm, No Murmurs GI/Abdominal Exam: Soft, Non-Tender, No Organomegaly, No Distention Extremities: No Pedal Edema, Other (Left hip pain)
[2021-04-17 14:15] VITALS: BP 142/70; PULSE 59
--- NOTE | 2021-04-30 20:03 | OR ---
DATE OF PROCEDURE: 04/11/2021 SURGEON: Isaias Barone MD PREOPERATIVE DIAGNOSIS: Displaced intertrochanteric fracture, left hip. POSTOPERATIVE DIAGNOSIS: Displaced intertrochanteric fracture, left hip. PROCEDURE PERFORMED: Closed reduction and intramedullary fixation, left hip using Synthes short TFN device. DIRECTOR OF STUDENT AID: TORRIE Rios ANESTHESIA: Spinal with sedation. INDICATIONS: Britta is an 80-year-old female admitted to the emergency room after a fall resulting in a mildly displaced intertrochanteric fracture of the left hip. She is cleared from medical standpoint and taken to the operating room for fixation of the fracture. Risks, benefits, and potential complications of the procedure were discussed with her. After adequate anesthesia was obtained, the patient was placed supine on the fracture table. Both feet were placed in the padded traction boots. Right leg is abducted and mild counter traction placed. Slight traction is applied to the left leg and fluoroscopic imaging used to confirm reduction. The left hip was then prepped and draped in a sterile fashion. Incision was made from the tip of the trochanter proximally and carried down through the subcutaneous tissues. The tensor fascia was divided in line with its fibers and blunt dissection carried down to the tip of the trochanter. Guide pin was then advanced into the trochanter under fluoroscopic guidance. Flexible reamer was placed over this into the intramedullary canal. A 10 mm short TFN nail was then advanced by hand across the fracture site. Position confirmed using fluoroscopy. A separate incision was made distal to the trochanter and the cannulated guide for the helical blade is placed against the lateral cortex and a guide pin advanced into the femoral head and neck with position confirmed on AP and lateral images. This is measured, lateral cortex is drilled and the helical blade was advanced. The guide for the blade was removed and a separate small stab incision was made distally for the locking screw. The cannula for the locking screw is placed through the guide and advanced to the lateral cortex of the femur. Femur was drilled and measured and the locking screw was placed. Position of this is confirmed on fluoroscopy as well. Flexible screwdriver is used to tightened. The helical blade in place and the insertion guide was then removed. Final x-rays are taken. Wounds were irrigated. Tensor fascia was closed with 0 Vicryl in interrupted fashion. Skin was closed with 2-0 Vicryl and 3-0 Monocryl. Steri-Strips were applied. Sterile dressing was then placed. The patient tolerated the procedure well. There were no complications. Taken from the operating room in stable condition. Isaias Barone MD /[id number]
== END 2021-04-17 16:00 | disposition home or self-care (01) | DRG 481 ==
LOC: JP.ED 15:04 → JP.ICU 18:39
PROVIDERS: ADMIT Internal Medicine; ATTEND Specialist
PROC: 0QS736Z Reposition Left Upper Femur with Intramedullary Internal Fixation Device, Percutaneous Approach (ICD-10-PCS; principal; 2021-04-11)
DX: S72.142A Displaced intertrochanteric fracture of left femur, initial encounter for closed fracture (principal); N39.0 Urinary tract infection, site not specified; D64.9 Anemia, unspecified; E87.6 Hypokalemia; I10 Essential (primary) hypertension; M19.90 Unspecified osteoarthritis, unspecified site; G62.9 Polyneuropathy, unspecified; Z79.899 Other long term (current) drug therapy; Z66 Do not resuscitate; Z20.822 Contact with and (suspected) exposure to COVID-19; J30.9 Allergic rhinitis, unspecified; Z88.8 Allergy status to other drugs, medicaments and biological substances; Z90.49 Acquired absence of other specified parts of digestive tract; W01.0XXA Fall on same level from slipping, tripping and stumbling without subsequent striking against object, initial encounter
CPT/HCPCS: 0241U; 36415; 51702; 71045; 73502; 76000; 80048; 80053; 81001; 85025; 85027; 87086; 87088; 87186; 94762; 96372; 96374; 97110; 97116; 97162; 97530; 99285; A9270-GY; C1713; C1776; J0330; J0690; J0696; J1100; J1170; J1650; J2405; J2704; J2710; J3010; J3480; J3490; J7030